=== PATIENT | male | born 1955 | race Caucasian/White ===

== ENCOUNTER 2019-10-29 15:00 | Outpatient (RCR) | payer MEDICARE, SELFPAY ==
[2019-10-07 09:16] VITALS: PULSE 72
--- NOTE | 2019-11-03 10:41 | PCCPR ---
Absent today r/t coronavirus
--- NOTE | 2019-11-12 09:43 | PCCPR ---
Program is temporarily suspended due to COVID outbreak.
--- NOTE | 2019-11-19 12:00 | PCCPR ---
Spoke with Navdeep on how things are going at home and we are currently closed through 12/18/19 and will stay in contact weekly.He is walking outdoors a couple of days 15-20 min and has been walking up and down stairs several times per day. He is not doing strength trng. He is open to our mailing him exercise safety information.
--- NOTE | 2019-11-26 09:48 | PCCPR ---
Talked with Navdeep who states he hasn't been able to do much activity. States he is going to the store today. He says he received the home exercise guidelines in the mail. No other questions. Will follow up with Navdeep next week.
--- NOTE | 2019-12-03 11:08 | PCCPR ---
Called patient to check in. Left voicemail. Will follow weekly.
--- NOTE | 2019-12-10 13:44 | PCCPR ---
Weekly update call-Left message.
--- NOTE | 2019-12-17 13:54 | PCCPR ---
Weekly update call-informed patient of continued closure through the month of December due to the extension of the senior care in place order. No questions at this time.
--- NOTE | 2020-01-01 13:09 | PCCPR ---
Starting Bi-Weekly Calls. Spoke with patient. Patient states he got tested today because he has been having increased SOB. He also states his son in law (who lives with him) got tested because one of his coworkers tested positive. No other questions or concerns at this time.
--- NOTE | 2020-01-15 13:38 | PCCPR ---
Navdeep is due to have a herniated disc in his back repaired in a couple of weeks. Spoke with his she said he may have a delayed restart once the department opens due to the surgery. They still would like us to call and check on him. No other questions or concerns at this time.
--- NOTE | 2020-02-06 13:11 | PCCPR ---
Addendum entered by Beatrice Walton RN 02/06/20 13:14: Navdeep called back, stated that his surgery went well and would like to return to Pulmonary rehab when reopened. Informed him that we would need a release from his surgeon before returning. Original Note: Called today to update on reopening. No answer, left message.
== END 2019-10-29 23:59 | disposition home or self-care (01) ==
LOC: ANHCPREHAB 15:00
PROVIDERS: PCP Physician Assistant; Visit Provider Internal Medicine Critical Care Medicine
DX: J44.9 Chronic obstructive pulmonary disease, unspecified (principal)
CPT/HCPCS: 97150; G0424

== ENCOUNTER 2020-05-06 13:16 | Outpatient (CLI) | payer MEDICARE, SELFPAY ==
--- NOTE | 2020-05-06 16:09 | WPDPFTINT ---
PFT Interpretation PFT Interpretation: DOS: 05/06/2020 REQUESTING: Fanny Carmichael NP REASON FOR TESTING: shortness of breath, other disorders of the lungs PULMONARY FUNCTION TESTS Results are reproducible. Spirometry: FEV1 is 50%, moderately decreased. FVC is 51%, moderately decreased. FEV1% is decreased consistent with airflow obstruction. UND97-40% is 36%, severely decreased. There is no increase in flows after bronchodilator. Lung volumes: TLC 67%, consistent with restriction. RV/TLC is increased consistent with obstruction. Increased airway resistance. Diffusion: DLCO 64%, mildly decreased. Flow volume loop: Flow volume loop is not reproducible. IMPRESSION: Mild restriction, moderate obstruction with air trapping, and mild diffusion impairment. No response to bronchodilator. This is a mixed pattern, and may represent a combination of 2 isolated conditions or a single condition such as sarcoid causing both abnormalities. Clinical correlation is recommended. Michelle Owen MD
--- NOTE | 2020-05-06 16:24 | WPDSIXMINUTE ---
Six Minute Walk Six Minute Walk: DOS: 05/06/2020 REQUESTING: Fanny Carmichael NP REASON FOR TESTING: shortness of breath, other disorders of the lungs SIX MINUTE WALK This test was conducted per ATS standards. The initial saturation was 97% and pulse was 92. He walked for 6 minutes without stopping, completing 1400 feet/ 427 meters. The pulse increased to 130 and saturation was as low as 92%. At the end of the test, final heart rate was 118 and saturation was 96%. IMPRESSION: No supplemental O2 is indicated with exertion. Heart rate was sustained in the 110s after the test suggesting deconditioning.
== END 2020-05-06 13:17 | disposition home or self-care (01) ==
LOC: ANHPFT 13:19
PROVIDERS: PCP Physician Assistant; Visit Provider Nurse Practitioner
DX: J98.4 Other disorders of lung (principal); R94.2 Abnormal results of pulmonary function studies
CPT/HCPCS: 94060; 94726; 94729

== ENCOUNTER 2020-05-18 07:41 | Outpatient (CLI) | payer MEDICARE, SELFPAY ==
--- NOTE | ~2020-05-18 | PE_ITS ---
EXAMINATION: PET skull to mid thigh DATE: 05/18/2020 09:59 INDICATION: Abnormal findings on diagnostic imaging of lung. TECHNIQUE: Blood glucose level was 154 mg/dL. 9.866 mCi of 18-fluorodeoxyglucose (18-FDG) was adminis tered i.v. Low dose computed tomography (CT) images were acquired from the base of the brain to the p roximal thighs for attenuation correction and anatomic localization. Automated exposure control was e mployed. Dose-length product (DLP) was 1219 mGy-cm. Positron emission tomography (PET) images were ac quired in the same distribution. COMPARISON: Chest CT 10/26/2011, abdomen CT 08/05/2015 FINDINGS: Head/neck: There is increased activity in the oral cavity, nasopharynx, oropharynx, muscles of mastic ation, and glottis without CT correlate, likely physiologic. There are no pathologically enlarged lym ph nodes. Chest: There are calcified pleural plaques bilaterally, which may be seen with asbestosis exposure. T here is mild atelectasis bilaterally. No pleural effusion. The heart size is normal. There are antunez ry artery calcifications. No pericardial effusion. There is prominent extrapleural fat. Mediastinal l ipomatosis is noted. There is a moderate-sized sliding hiatal hernia. There are multiple old healed r ight rib fractures. Abdomen/pelvis/proximal thighs: The liver, gallbladder, pancreas, spleen, adrenal glands, and right k idney are normal. There is a 1.5 cm cyst in left kidney. The prostate is moderately enlarged. There a re no dilated loops of bowel. There is a mildly enlarged periportal lymph node without increased acti vity, likely reactive. There is no free intraperitoneal fluid. There are L4 and L5 laminectomies with associated surgical bed and subcutaneous fat stranding and increased activity, consistent with infla mmation. IMPRESSION: 1. No specific evidence of malignancy. Reviewed, dictated and finalized at location A.
[2020-05-18 08:14] LABS: Glucose Point of Care 154 (65-105)
== END 2020-05-18 07:42 | disposition home or self-care (01) ==
PROVIDERS: PCP Physician Assistant; Visit Provider Nurse Practitioner
DX: R91.8 Other nonspecific abnormal finding of lung field (principal)
CPT/HCPCS: 78815; A9552

== ENCOUNTER 2021-05-16 11:28 | Outpatient (CLI) | payer MEDICARE, SELFPAY ==
[2021-05-16 13:01] LABS: Basophils Absolute Auto 0.1 K/mm3 (0.0-0.1); Basophils Percent Auto 0.6 % (0.2-1.2); Eosinophils Absolute Auto 0.2 K/mm3 (0-0.3); Eosinophils Percent Auto 1.4 % (0-4.4); Hematocrit 51.4 % (42.0-52.0); Hemoglobin 16.6 g/dL (14.0-18.0); Immature Granulocyte Absolute 0.07 K/mm3 (0.00-0.031); Immature Granulocyte Percent A 0.6 % (0-0.5); Lymphocytes Absolute Auto 4.94 K/mm3 (0.9-3.2); Lymphocytes Percent Auto 40.5 % (18.3-44.2); Mean Corpuscular HGB Conc 32.3 g/dl (32-36); Mean Corpuscular Hemoglobin 27.8 pg (26-34); Mean Corpuscular Volume 86.1 fl (80-100); Monocytes Absolute Auto 0.6 K/mm3 (0.1-0.6); Monocytes Percent Auto 4.8 % (2.6-8.5); Neutrophils Absolute Auto 6.4 K/mm3 (1.3-6.7); Neutrophils Percent Auto 52.1 % (45.5-73.1); Platelet Count Result 261 k/mm3 (150-375); Red Blood Count 5.97 M/mm3 (4.6-6.20); Red Cell Distribution Width 13.2 % (11.5-14.5); White Blood Count 12.2 K/mm3 (4.5-10.0)
[2021-05-16 13:05] LABS: Blood Urea Nitrogen 17 mg/dL (9-20); Estimated Glomerular Filt Rate > 60
[2021-05-19 10:45] LABS: NIL 0.05 IU/mL; Quantiferon TB Plus, 1T NEGATIVE (NEGATIVE); TB1-NIL 0.04 IU/mL; TB2-NIL 0.03 IU/mL
[2021-05-19 13:20] LABS: Immunoglobulin G, Serum 770 mg/dL (600-1540); Immunoglobulin G1 363 mg/dL (382-929); Immunoglobulin G2 251 mg/dL (241-700); Immunoglobulin G3 48 mg/dL (22-178)
[2021-05-20 11:30] LABS: Alpha-1-Antitrypsin, QN 139 mg/dL (83-199)
== END 2021-05-16 11:29 | disposition home or self-care (01) ==
PROVIDERS: PCP Physician Assistant; Visit Provider Nurse Practitioner
DX: J30.9 Allergic rhinitis, unspecified (principal); R05 Cough; R07.9 Chest pain, unspecified; R06.09 Other forms of dyspnea
CPT/HCPCS: 36415; 82103; 82104; 82565; 82784; 82785; 82787; 84520; 85025; 86003; 86480

== ENCOUNTER 2021-05-17 10:11 | Outpatient (CLI) | payer MEDICARE, SELFPAY ==
--- NOTE | ~2021-05-17 | XR_ITS ---
EXAMINATION: XR chest 2V EXAM DATE: 05/17/2021 10:55 INDICATION: Chest pain and shortness of breath. Asbestos exposure. TECHNIQUE: Frontal and lateral projections of the chest obtained and reviewed. Comparison is made to prior examination from 10/26/2014. FINDINGS: Calcified right pleural plaque along the diaphragm. There are multiple old right rib fract ures. Small scattered bilateral upper lobe reticular nodular opacities more on the right appear not s ignificantly changed, likely chronic postinfectious residua. The lungs are otherwise clear. Heart is upper limits of normal in size. There is no pneumothorax suspected. There are no pleural effusions. T here is no significant interval change. IMPRESSION: Chronic findings as above. Reviewed, dictated and finalized at location A. IMPRESSION: Chronic findings as above.
--- NOTE | ~2021-05-17 | NM_ITS ---
EXAMINATION: NM pulmonary perfusion EXAM DATE: 05/17/2021 10:56 INDICATION: Chest pain, shortness of breath. History hypertension, heart stents, asbestos exposure. TECHNIQUE: A perfusion lung scan was performed. The patient was injected with 5.2 mCi technetium 99m MAA and imaged. Modified PIOPED 2 criteria used for interpretation of perfusion without ventilation study (recent chest x-ray instead for comparison). Correlation is made to chest x-ray obtained same d ay. FINDINGS: There is minimally heterogeneous perfusion without discrete segmental defects. Low probabil ity pulmonary embolism. IMPRESSION: Low probability pulmonary embolism. Reviewed, dictated and finalized at location A.
== END 2021-05-17 10:12 | disposition home or self-care (01) ==
LOC: ANHIMG 10:16
PROVIDERS: PCP Nurse Practitioner; Visit Provider Nurse Practitioner
DX: R07.9 Chest pain, unspecified (principal)
CPT/HCPCS: 71046; 78580; A9540

== ENCOUNTER 2022-02-01 08:05 | Outpatient (CLI) | payer MEDICARE, SELFPAY ==
[2022-02-01 08:10] VITALS: PULSE 100; O2SAT 95
[2022-02-01 08:15] VITALS: PULSE 130; O2SAT 86
[2022-02-01 08:20] VITALS: PULSE 129; O2SAT 88
[2022-02-01 08:25] VITALS: PULSE 128; O2SAT 91
[2022-02-01 08:40] VITALS: PULSE 100; O2SAT 94
--- NOTE | 2022-02-01 08:49 | HOMEO2EVAL ---
Evaluation was performed at [facility] Home Oxygen Evaluation RC: Home Oxygen (O2) Evaluation Start: 02/01/22 08:43 Freq: Status: Active Protocol: RPE Activity Type Activity Date Activity User E-sign Co-sign Detail Recorded Client Recorded Date Recorded By Document 02/01/22 08:10 DJO [email or web address] 02/01/22 08:49 DJO Document 02/01/22 08:15 [email or web address] [email or web address] 02/01/22 08:49 DJO Document 02/01/22 08:20 [email or web address] [email or web address] 02/01/22 08:49 DJO Document 02/01/22 08:25 [email or web address] [email or web address] 02/01/22 08:49 DJO Document 02/01/22 08:40 [email or web address] [email or web address] 02/01/22 08:49 DJO 02/01/22 02/01/22 02/01/22 08:10 08:15 08:20 Home O2 Evaluation Test Phase Resting Exercise Exercise Oxygen Delivery Room Air Room Air Nasal Cannula Oxygen Flow Rate (L/min) 1 Pulse Oximetry (90-100 %) 95 86 L 88 L Pulse Rate (60-100 beats/min) 100 130 H 129 H Ambulation Distance (feet) Ambulation Distance (meters) Treatment Charges O2 Evaluation - Outpatient 02/01/22 02/01/22 08:25 08:40 Home O2 Evaluation Test Phase Exercise Resting Oxygen Delivery Room Air Oxygen Flow Rate (L/min) 2 Pulse Oximetry (90-100 %) 91 94 Pulse Rate (60-100 beats/min) 128 H 100 Ambulation Distance (feet) 1,000 Ambulation Distance (meters) 304.78 Treatment Charges
== END 2022-02-01 08:06 | disposition home or self-care (01) ==
PROVIDERS: PCP Nurse Practitioner; Visit Provider Nurse Practitioner
DX: J44.9 Chronic obstructive pulmonary disease, unspecified (principal)
CPT/HCPCS: 94618

== ENCOUNTER 2022-03-09 20:50 | Observation (INO) | payer MEDICARE, SELFPAY ==
[2022-03-09 20:49] VITALS: BP 133/69; PULSE 69; RESP 13; TEMP 36.8; O2SAT 96
--- NOTE | 2022-03-09 20:52 | ECG_ITS ---
Measurements Intervals [place] Rate: 67 P: 56 DE: 176 QRS: 72 QRSD: 79 T: 72 QT: 365 QTc: 386 Interpretive Statements SINUS RHYTHM BASELINE ARTIFACT- V2-V3 NORMAL ECG Electronically Signed On 03-10-2022 8:41:20 CDT by Janusz Morrison D.O.
[2022-03-09 20:53] VITALS: PULSE 67
--- NOTE | 2022-03-09 21:09 | ED.GENADULT ---
HPI - General Adult General Chief complaint: Syncope Stated complaint: PRESYNCOPE Time Seen by Provider: 03/09/22 20:53 History of Present Illness HPI narrative: 66-year-old male presenting to the emergency department for evaluation of 2 to 3 days of having multiple episodes of near syncope. Patient states over the last few days he has had multiple episodes daily during which he stands up and feels like he is going to have lost consciousness. Patient denies any sensation of dizziness but states he feels like he is going to pass out. Patient states his symptoms do improve once he sits down and rest. Patient denies any associated nausea vomiting or diarrhea. Patient denies any chest pain or shortness of breath. Patient states he does have some mild headache but that this is not unusual for him. Last night patient was walking and felt dizzy and wobbly and did bump into a table. After resting on the floor for 5 minutes patient felt improved. Prior to arrival patient states when he was walking to the car to come here he had worsening symptoms, patient states he did improve while resting in the car. Patient states after getting out of the car the symptoms returned. While resting in the bed patient denies any symptoms. Patient does have a history of hypertension and does have cardiac stents. Patient states his last stent was in 2019. Patient also has a prior history of bladder cancer. Patient also has history of asbestosis and is on 2 L of oxygen by nasal cannula. Related Data Home Medications Medication Instructions Recorded Confirmed aspirin 81 mg tablet,delayed 81 mg PO DAILY 10/07/19 10/07/19 release (Scott Low Dose Aspirin) carvedilol 25 mg tablet 25 mg PO BID 10/07/19 10/07/19 citalopram 20 mg tablet 20 mg PO DAILY 10/07/19 10/07/19 clopidogrel 75 mg tablet 75 mg PO DAILY 10/07/19 10/07/19 levothyroxine 50 mcg tablet 50 mcg PO DAILY 10/07/19 10/07/19 lisinopril 10 1 tablet PO BID 10/07/19 10/07/19 mg-hydrochlorothiazide 12.5 mg tablet Allergies Allergy/AdvReac Type Severity Reaction Status Date / Time metoclopramide Allergy Mild N/V, Verified 06/03/15 10:49 ITHCING, RASH propoxyphene Allergy Mild N/V, Verified 06/03/15 10:49 ITCHING, RASH vancomycin Allergy Mild N/V, Verified 06/03/15 10:49 ITCHING, RASH codeine Allergy Unknown NAUSEA Verified 06/03/15 10:49 Contrast Media Allergy Mild VOMITING, Uncoded 06/03/15 10:49 RASH Review of Systems Review of Systems: CONSTITUTIONAL: Denies fever, chills, or sweats. EYES: Denies visual changes, redness, or discharge. ENT: Denies rhinorrhea, congestion, sore throat, or otalgia. CARDIOVASCULAR: Denies chest pain, palpitations, or edema. RESPIRATORY: Denies cough or dyspnea. GASTROINTESTINAL: Denies abdominal pain, nausea, vomiting, or diarrhea. GENITOURINARY: Denies dysuria or hematuria. SKIN: Denies rash or itching. MUSCULOSKELETAL: Denies back pain, joint pain, or myalgia. NEUROLOGIC: Denies headache, numbness, or weakness. Lightheadedness and near syncope PMFSH Past Medical History Medical History (Updated 03/10/22 @ 00:46 by Jn Samuel DO) Anxiety Coronary artery disease Essential (primary) hypertension Hypothyroidism, unspecified Family History Family History Mother Family history of malignant neoplasm Chronic obstructive pulmonary disease Hypertension Sibling Family history of coronary artery disease Hypertension Father Family history of coronary artery disease Hypertension Social History Social History Smoking status: Never smoker Alcohol intake: never Substance use: never Spiritual care concerns: No Exam Narrative: APPEARANCE: Well appearing, no pain, no distress, well-nourished. HEAD: normocephalic, atraumatic. EYES: PERRLA/EOMI, conjunctivae clear. NOSE:
[2022-03-09 21:59] LABS: Basophils Absolute Auto 0.1 K/mm3 (0.0-0.1); Basophils Percent Auto 0.4 % (0.2-1.2); Eosinophils Absolute Auto 0.2 K/mm3 (0-0.3); Eosinophils Percent Auto 1.6 % (0-4.4); Hematocrit 48.3 % (42.0-52.0); Hemoglobin 15.8 g/dL (14.0-18.0); Immature Granulocyte Absolute 0.14 K/mm3 (0.00-0.031); Lymphocytes Absolute Auto 3.46 K/mm3 (0.9-3.2); Lymphocytes Percent Auto 24.8 % (18.3-44.2); Mean Corpuscular HGB Conc 32.7 g/dl (32-36); Mean Corpuscular Hemoglobin 27.6 pg (26-34); Mean Corpuscular Volume 84.3 fl (80-100); Mean Platelet Volume 8.6 fl (7.4-10.4); Monocytes Absolute Auto 0.6 K/mm3 (0.1-0.6); Monocytes Percent Auto 4.6 % (2.6-8.5); Neutrophils Absolute Auto 9.4 K/mm3 (1.3-6.7); Neutrophils Percent Auto 67.6 % (45.5-73.1); Platelet Count Result 295 k/mm3 (150-375); Red Blood Count 5.73 M/mm3 (4.6-6.20); Red Cell Distribution Width 13.6 % (11.5-14.5)
[2022-03-09 22:08] LABS: Alanine Aminotransferase 37 U/L (6-50); Albumin Level 4.5 g/dL (3.5-5.1); Alkaline Phosphatase 66 U/L (38-126); Anion Gap 8 mmol/L (8-16); Aspartate Amino Transferase 31 U/L (17-59); Bilirubin,Total 0.9 mg/dL (0.2-1.3); Blood Urea Nitrogen 25 mg/dL (9-20); Calcium 10.2 mg/dL (8.4-10.2); Carbon Dioxide 28 mmol/L (22-30); Chloride 98 mmol/L (98-107); Estimated Glomerular Filt Rate 36; Glucose 151 mg/dL (65-110); Potassium 4.1 mmol/L (3.4-5.0); Sodium 134 mmol/L (137-145)
[2022-03-09 22:17] VITALS: BP 109/60; PULSE 78
[2022-03-09 22:19] VITALS: BP 87/66; PULSE 85
[2022-03-09 22:35] LABS: SARS-CoV-2 RNA PCR Negative
[2022-03-09 22:37] VITALS: BP 100/85; PULSE 77; RESP 16; O2SAT 96
[2022-03-09] MEDS: SODIUM CHLORIDE 0.9% IV 1,000 ML 999 ML IV CONT (22:37)
[2022-03-09] MEDS: SODIUM CHLORIDE 0.9% IV 1,000 ML 100 ML IV CONT (23:38)
[2022-03-09 23:41] VITALS: BP 151/88; PULSE 70; RESP 19; O2SAT 94
[2022-03-10] VITALS (17 sets, daily range): BP systolic 117–172; BP diastolic 49–80; PULSE 66–97; RESP 18–20; TEMP 36.3–36.6; O2SAT 95–100; BMI 35.2
--- NOTE | 2022-03-10 00:09 | PM.IMHP ---
H&P: HPI History of Present Illness Date/Time: 03/10/22 00:09 Chief Complaint: dizziness Narrative: Patient is a 66-year-old male past medical history posttraumatic brain injury, BPH, CAD status post coronary stents, essential hypertension, hypothyroidism, GERD who presents the ED complaints of dizziness and near syncope. Patient states whenever he stands up he feels lightheaded and dizzy. this is been going on for last couple weeks. He follows Dr. Deepthi ferreira for his coronary stents. of note he had a positive stress test, subsequent heart catheterization he had diagnostic which was abnormal. Apparently the facility he was in could not safely do stents without cardiology back up, so he was advised to follow up at later date? In the ED: Patient was found to be orthostatic blood pressure going from 151/88 down to 87/66. patient be admitted for orthostatic hypotension Review of Systems Review of Systems: Constitutional: No Fever, No Chills, No Night Sweats, No Fatigue, No Malaise ENT/Mouth: No Hearing Changes, No Ear Pain, No Nasal Congestion, No Sinus Pain, No Hoarseness, No sore throat, No Rhinorrhea, No Swallowing Difficulty Eyes: No Eye Pain, No Redness, No Vision Changes Cardiovascular: No Chest Pain, No Palpitations, No Dyspnea on Exertion, No Orthopnea Respiratory: No Cough, No Sputum, No Wheezing, No Shortness of Breath Gastrointestinal: No Nausea, No Vomiting, No Diarrhea, No Constipation, No Abdominal Pain, No Heartburn, No Hematochezia, No Melena Genitourinary: No Dysuria, No Urinary Frequency, No Hematuria, No Urinary Incontinence, No Urgency Musculoskeletal: No Arthralgias, No Myalgias, No Joint Swelling, No Joint Stiffness, No Back Pain Skin: No Skin Lesions, No Pruritis, No Hair Changes Neuro: No Weakness, No Numbness, No Paresthesias, No Loss of Consciousness, No Syncope, endorses dizziness and lightheadedness Psych: No Anxiety/Panic, No Depression, No Insomnia Heme: No Bruising, No Bleeding Lymph: No Adenopathy Endocrine: No Polyuria, No Polydipsia, No Temperature Intolerance PMF Past Medical History Medical History (Updated 03/10/22 @ 00:46 by Jn Samuel DO) Anxiety Coronary artery disease Essential (primary) hypertension Hypothyroidism, unspecified Family History Family History Mother Family history of malignant neoplasm Chronic obstructive pulmonary disease Hypertension Sibling Family history of coronary artery disease Hypertension Father Family history of coronary artery disease Hypertension Social History Social History Smoking status: Never smoker Alcohol intake: never Comments surgical history: History of coronary stent Meds Home Medications and Allergies Home Medications Medication Instructions Recorded Confirmed Type aspirin 81 mg tablet,delayed 81 mg PO DAILY 10/07/19 10/07/19 History release (Scott Low Dose Aspirin) carvedilol 25 mg tablet 25 mg PO BID 10/07/19 10/07/19 History citalopram 20 mg tablet 20 mg PO DAILY 10/07/19 10/07/19 History clopidogrel 75 mg tablet 75 mg PO DAILY 10/07/19 10/07/19 History levothyroxine 50 mcg tablet 50 mcg PO DAILY 10/07/19 10/07/19 History lisinopril 10 1 tablet PO BID 10/07/19 10/07/19 History mg-hydrochlorothiazide 12.5 mg tablet Allergies Allergy/AdvReac Type Severity Reaction Status Date / Time metoclopramide Allergy Mild N/V, Verified 06/03/15 10:49 ITHCING, RASH propoxyphene Allergy Mild N/V, Verified 06/03/15 10:49 ITCHING, RASH vancomycin Allergy Mild N/V, Verified 06/03/15 10:49 ITCHING, RASH codeine Allergy Unknown NAUSEA Verified 06/03/15 10:49 Contrast Media Allergy Mild VOMITING, Uncoded 06/03/15 10:49 RASH Vital Signs Vital Signs - 24 hr 03/09/22 20:49 03/09/22 20:53 03/09/22 22:17 Temperature 36.8 C Puls
--- NOTE | 2022-03-10 01:03 | ADMGEN ---
This patient, Navdeep Pierce, was admitted to Medical Room 240-. Patient/family oriented to hospital policies and general routines including ID bracelet, bed and alarms, visiting hours, pain management, procedures, bathroom and other care routines, personal items, smoking policy, room service/diet, and visiting hours. Information on how to activate the Rapid Response Team has been discussed. Patient/Family are encouraged to report perceived risks to care and to ask questions if they do not understand what they are told or what they should do.
[2022-03-10] MEDS: SODIUM CHLORIDE 0.9% IV 1,000 ML 100 ML IV CONT ×3 (01:29→17:08)
[2022-03-10] MEDS: LEVOTHYROXINE SODIUM 50 MCG TABLET PO (06:19)
--- NOTE | 2022-03-10 07:07 | PM.IMPN ---
Progress Note: A&P Assessment and Plan (1) Orthostatic hypotension: Code(s): I95.1 - Orthostatic hypotension Status: Acute Assessment and Plan: Patient has significant orthostatics in the ED systolic blood pressure going from 150s to 80s and given 2 L bolus in the ED - Continue NS 100 cc/hour overnight - Repeat ortho vitals improved. - slowly resume antihypertensives, patient? may need to an average higher blood pressure to control for his orthostatics as he is becoming significantly symptomatic - Resume Coreg at lower dose. (2) SHASHANK (acute kidney injury): Code(s): N17.9 - Acute kidney failure, unspecified Status: Acute Assessment and Plan: Creatinine elevated at 1.90, baseline at 1.0. Likely prerenal from hypotension. - Continue IVF as above. - Repeat BMP in am. - mild leukocytosis likely secondary dehydration as well, WBC 27798. No fever, no? signs of infection, holding off on antibiotics (3) Hypothyroidism, unspecified: Code(s): E03.9 - Hypothyroidism, unspecified Status: Chronic Assessment and Plan: - Continue levothyroxine at home dose. (4) Essential (primary) hypertension: Code(s): I10 - Essential (primary) hypertension Status: Chronic Assessment and Plan: - Resume coreg at lower dose with hold parameters. - Hold lisinopril and HCTZ due to SHASHANK. (5) Anxiety: Code(s): F41.9 - Anxiety disorder, unspecified Status: Chronic Assessment and Plan: - Continue citalopram (6) CAD (coronary artery disease): Code(s): I25.10 - Atherosclerotic heart disease of [place] coronary artery without angina pectoris Status: Chronic Assessment and Plan: - Continue aspirin and plavix. Plan CODE STATUS: FULL CODE Disposition: Home in 1-2 days Time Spent With Patient Time with patient: 15 - 25 minutes Subjective Date/time seen: 03/10/22 07:07 Patient is a 66 yo male with medical history of hypertension, CAD with cardiac stents, asbestosis on 2L O2, hypothyroidism, and BPH. He presented to the ED for evaluation of near syncope. He was found to have orthostatic hypotension and was referred for further monitoring. Patient found sitting up in bed. He reports his lightheadedness is improving. Repeat orthostatic vitals were negative. No [place], vision changes, chest pain, SOB worsened from baseline, abd pain, dysuria, N/V/D or stool changes. He reports not drinking much water throughout the day. Review of Systems Review of Systems: All systems reviewed & are unremarkable except as noted in HPI and below Exam Narrative: General: No acute distress.?Well-developed adult male sitting up in bed. O2 2L NC. Mental Status/Psych: Awake, alert and oriented to person and place with clear speech. Neutral mood and affect. Pleasant and cooperative. Skin: Skin warm, dry and intact without rashes or lesions. No open wounds. Fair turgor.? HEENT: Normocephalic. Conjunctivae are clear and non-icteric. Pupils equal and round. Grossly normal hearing. Oral mucosa pink and moist. Neck: Supple. No JVD. Heart: S1 and S2 regular rate and rhythm. No murmurs, gallops, or rubs auscultated. Chest: Respirations even and unlabored. Lung sounds are clear to auscultation and diminished in bibasilar lobes. No wheezes, rhonchi, or rales. Abdomen: Soft, round and nontender to palpation.? Bowel sounds present in all 4 quadrants. Extremities:? Grossly normal ROM all extremities. No edema. Radial and dorsalis pedis pulses +2 bilaterally. Neurological: No focal deficits. CN 2-12 grossly intact. Objective Data Vital Signs Vital Signs: Vital Signs - 24 hr 03/09/22 20:49 03/09/22 20:53 03/09/22 22:17 Temperature 98.2 F Pulse Rate 69 67 78 Respiratory Rate 13 Blood Pressure 133/69 109/60 Pulse Oximetry 96 Oxygen Delivery Room Air Oxygen Flow Rate 03/09/22 22:19 03/09/22 22:37 03/09/22 23:41 Temperature Pulse
[2022-03-10] MEDS: allopurinoL 100 MG TABLET PO (08:20)
[2022-03-10] MEDS: ASPIRIN 81 MG ENTERIC TABLET PO (08:20)
[2022-03-10] MEDS: CLOPIDOGREL BISULFATE 75 MG TABLET PO (08:20)
[2022-03-10] MEDS: ENOXAPARIN 40 MG/0.4 ML SYRINGE SUB-Q (08:20)
[2022-03-10] MEDS: ROSUVASTATIN 10 MG TABLET 40 MG PO (08:20)
[2022-03-10] MEDS: VENLAFAXINE HCL XR 75 MG CAP.ER.24H 150 MG PO (08:20)
[2022-03-10] MEDS: CITALOPRAM HYDROBROMIDE 20 MG TABLET PO (08:29)
[2022-03-10] MEDS: carvediloL 6.25 MG TABLET PO (20:53)
[2022-03-11] VITALS (7 sets, daily range): BP systolic 126–156; BP diastolic 58–85; PULSE 65–71; RESP 16–20; TEMP 36.8; O2SAT 96–99
[2022-03-11 05:29] LABS: Hemoglobin 13.3 g/dL (14.0-18.0); Mean Corpuscular HGB Conc 32.4 g/dl (32-36); Mean Corpuscular Hemoglobin 27.6 pg (26-34); Mean Corpuscular Volume 85.1 fl (80-100); Mean Platelet Volume 8.9 fl (7.4-10.4); Platelet Count Result 244 k/mm3 (150-375); Red Blood Count 4.82 M/mm3 (4.6-6.20); Red Cell Distribution Width 13.5 % (11.5-14.5); White Blood Count 8.9 K/mm3 (4.5-10.0)
[2022-03-11 05:40] LABS: Anion Gap 4 mmol/L (8-16); Blood Urea Nitrogen 24 mg/dL (9-20); Calcium 8.7 mg/dL (8.4-10.2); Carbon Dioxide 31 mmol/L (22-30); Chloride 101 mmol/L (98-107); Estimated CRCL calculation 61 ml/min; Estimated Glomerular Filt Rate 51; Glucose 115 mg/dL (65-110); Magnesium 1.9 mg/dL (1.6-2.3); Potassium 4.6 mmol/L (3.4-5.0); Sodium 136 mmol/L (137-145)
[2022-03-11] MEDS: LEVOTHYROXINE SODIUM 50 MCG TABLET PO (05:42)
[2022-03-11] MEDS: SODIUM CHLORIDE 0.9% IV 1,000 ML 100 ML IV CONT (05:42)
[2022-03-11] MEDS: carvediloL 6.25 MG TABLET PO (08:46)
[2022-03-11] MEDS: CITALOPRAM HYDROBROMIDE 20 MG TABLET PO (08:46)
[2022-03-11] MEDS: ROSUVASTATIN 10 MG TABLET 40 MG PO (08:46)
[2022-03-11] MEDS: CLOPIDOGREL BISULFATE 75 MG TABLET PO (08:46)
[2022-03-11] MEDS: allopurinoL 100 MG TABLET PO (08:46)
[2022-03-11] MEDS: ENOXAPARIN 40 MG/0.4 ML SYRINGE SUB-Q (08:46)
[2022-03-11] MEDS: ASPIRIN 81 MG ENTERIC TABLET PO (08:46)
[2022-03-11] MEDS: VENLAFAXINE HCL XR 75 MG CAP.ER.24H 150 MG PO (08:47)
--- NOTE | 2022-03-11 10:10 | PM.DS ---
DS: Admitting Diagnosis Discharge Date 03/11/2022 1011 Admitting Diagnosis Syncope Orthostatic hypotension SHASHANK DS: Discharge Diagnosis Discharge Diagnosis (1) Orthostatic hypotension: Code(s): I95.1 - Orthostatic hypotension Status: Acute Assessment and Plan: Patient had significant orthostatics in the ED systolic blood pressure going from 150s to 80s and given 2 L bolus in the ED - He was treated with NS 100 cc/hour 03/09 to 03/11 - Repeat ortho vitals improved and dizziness resolved. - His coreg was resumed at low dose and increased to 12.5 mg BID. lisinopril/HCTZ was held for SHASHANK. Amlodipine was resumed on discharge. He was counseled on changing positions slowly and waiting to ambulate, ger if dizzy. He was counseled to monitor BP at home, to record and take to follow up appointment. He was given parameters to follow for antihypertensive medications. (2) SHASHANK (acute kidney injury): Code(s): N17.9 - Acute kidney failure, unspecified Status: Acute Assessment and Plan: Creatinine elevated at 1.90, baseline at 1.0. Likely prerenal from hypotension. - He was treated with IVF as above. - 03/11 renal function was improved, BUN 24, creatinine 1.4, GFR 51. - dizziness resolved. lisinopril/hctz held for 2 days at discharge with repeat BMP in 1 week. - oral water intake was discussed and encouraged. - mild leukocytosis was noted but thought secondary dehydration. WBC 91720. No fever, dysuria, cough, diarrhea, or other signs of infection were noted. Antibiotics were not given. (3) Hypothyroidism, unspecified: Code(s): E03.9 - Hypothyroidism, unspecified Status: Chronic Assessment and Plan: -Levothyroxine was continued at home dose. TSH was normal at 1.48. (4) Essential (primary) hypertension: Code(s): I10 - Essential (primary) hypertension Status: Chronic Assessment and Plan: - Resume coreg at lower dose with hold parameters. - Hold lisinopril and HCTZ due to SHASHANK. - BP 156/85, HR 67. Patient may need higher BP to prevent orthostasis and dizziness. - outpatient monitoring and PCP follow up with ordered. (5) Anxiety: Code(s): F41.9 - Anxiety disorder, unspecified Status: Chronic Assessment and Plan: - Continued on citalopram. Stable. (6) CAD (coronary artery disease): Code(s): I25.10 - Atherosclerotic heart disease of ione coronary artery without angina pectoris Status: Chronic Assessment and Plan: - Continued on aspirin and plavix. Beta-demarco was resumed at 1/2 dose, with instructions for increasing to previous level if BP remains elevated. DS: Summary Hospital Course Reason for hospitalization: Dizziness Hospital Course: Navdeep Pierce is a 66-year-old male with past medical history posttraumatic brain injury, BPH, CAD s/p coronary stents, essential hypertension, hypothyroidism, and GERD. He presented to the ED with complaints of dizziness and?near syncope.? Patient states whenever he stands up he feels lightheaded and dizzy, which has been going on for the last couple weeks.? He follows Dr. Lacey, Cardiology for his coronary stents. Of note he had a positive stress test, subsequent heart catheterization he had diagnostic which was abnormal. He reported that the facility could not safely do stents without cardiology back up, so he was advised to follow up at later date. In the ED, patient was found to be orthostatic with blood pressure going from 151/88 down to 87/66.? Renal function was elevated suggesting dehydration and hypovolemia as the cause of his dizziness. He was referred for observation and placed on the medical floor. He was treated with IV hydration and antihypertensives were adjusted. His dizziness resolved and orthostatic BP improved as described above. He was discharged home in stable condition with instructions to monitor and record BP at home. He was given instructi
== END 2022-03-11 11:00 | disposition home or self-care (01) ==
LOC: ANHED 21:21 → ANH2MED 03-10 00:36
PROVIDERS: Emergency Medicine; Admitting Provider Student in an Organized Health Care Education/Training Program; Emergency Provider Emergency Medicine; PCP Physician Assistant; Visit Provider Nurse Practitioner Family
DX: I95.1 Orthostatic hypotension (principal); N17.9 Acute kidney failure, unspecified; D72.829 Elevated white blood cell count, unspecified; E03.9 Hypothyroidism, unspecified; I10 Essential (primary) hypertension; F41.9 Anxiety disorder, unspecified; I25.10 Atherosclerotic heart disease of native coronary artery without angina pectoris; Z95.5 Presence of coronary angioplasty implant and graft; K21.9 Gastro-esophageal reflux disease without esophagitis; Z87.820 Personal history of traumatic brain injury; N40.0 Benign prostatic hyperplasia without lower urinary tract symptoms; Z20.822 Contact with and (suspected) exposure to COVID-19; Z82.49 Family history of ischemic heart disease and other diseases of the circulatory system; Z79.82 Long term (current) use of aspirin; Z79.02 Long term (current) use of antithrombotics/antiplatelets; Z79.899 Other long term (current) drug therapy
CPT/HCPCS: 36415; 80048; 80053; 83735; 84443; 85025; 85027; 93005; 96360; 96361; 96372; 99285; A9270; C9803; G0378; J1650; J7030; U0003; U0005

== ENCOUNTER → 2022-07-11 08:05 | Outpatient (CLI) | payer MEDICARE, SELFPAY ==
--- NOTE | ~2022-07-11 | CT_ITS ---
EXAMINATION:CT diagnostic chest wo con DATE: 07/11/2022 08:21 INDICATION: Pleural plaque with presence of asbestos. TECHNIQUE: Computed tomography (CT) of the chest was performed without intravenous contrast. Automate d exposure control and iterative reconstruction technique were employed. The dose-length product (DLP ) was 247.24 mGy-cm. COMPARISON: PET CT 05/18/2020 FINDINGS: There are calcified bilateral pleural plaques, which may be seen with asbestosis exposure. There is mild atelectasis bilaterally. No pleural effusion. The heart size is normal. There are coron daniel artery calcifications. No pericardial effusion. There is a small sliding hiatal hernia. There are old healed right rib fractures. There are bridging endplate osteophytes at multiple levels in the sp ine, consistent with diffuse idiopathic skeletal hyperostosis (DISH). IMPRESSION: 1. No acute cardiopulmonary disease. Reviewed, dictated and finalized at location A. LE BUILDER
== END ==
PROVIDERS: PCP Physician Assistant; Visit Provider Nurse Practitioner
DX: J92.0 Pleural plaque with presence of asbestos (principal)
CPT/HCPCS: 71250

== ENCOUNTER → 2022-11-20 13:45 | Outpatient (CLI) | payer MEDICARE, SELFPAY ==
--- NOTE | ~2022-11-20 | CT_ITS ---
EXAMINATION:CT diagnostic chest wo con DATE: 11/20/2022 14:01 INDICATION: Other chest pain. TECHNIQUE: Computed tomography (CT) of the chest was performed without intravenous contrast. Automate d exposure control and iterative reconstruction technique were employed. The dose-length product (DLP ) was 623.79 mGy-cm. COMPARISON: Chest CT 07/11/2022 FINDINGS: There are calcified pleural plaques bilaterally, which may be seen with asbestosis exposure . There is mild atelectasis in lingula. No bronchiectasis or honeycombing. No pleural effusion. The h eart size is normal. There are coronary artery calcifications. No pericardial effusion. There is a sm all sliding hiatal hernia. There are old healed right rib fractures. There is mild thoracic spondylos is. There are bridging endplate osteophytes at multiple levels in the spine, consistent with diffuse idiopathic skeletal hyperostosis (DISH). IMPRESSION: 1. Small sliding hiatal hernia. Reviewed, dictated and finalized at location A.
== END ==
PROVIDERS: PCP Nurse Practitioner; Visit Provider Nurse Practitioner
DX: R07.89 Other chest pain (principal); K44.9 Diaphragmatic hernia without obstruction or gangrene
CPT/HCPCS: 71250

== ENCOUNTER 2024-09-28 10:08 | Emergency (ER) | payer MEDICARE, SELFPAY ==
--- NOTE | 2024-09-28 10:09 | ED_ITS ---
HPI - Skin/Abscess/Foreign Bdy General Chief complaint: Dental/Oral Stated complaint: upper lip swollen Time Seen by Provider: 09/28/24 10:09 Source: patient Mode of arrival: ambulatory Limitations: no limitations History of Present Illness HPI narrative: Navdeep is a 69-year-old male patient presenting to the clinic today with complaints upper lip swelling x3 days. He reports he is not currently taking lisinopril as far as he is aware. He reports symptoms started 3 days ago he has taken some Benadryl and this has helped. He reports some discomfort to the upper lip due to the swelling. No obvious sign injury or infection at this time. He denies any fevers, chills, body aches. He is also requesting influenza testing as his grandkids are positive. Related Data Home Medications ?Medication ?Instructions ?Recorded ?Confirmed ?Last Taken ?Type aspirin 81 mg tablet,delayed 81 mg PO DAILY 10/07/19 03/10/22 Unknown History release (Scott Low Dose Aspirin) citalopram 20 mg tablet 20 mg PO DAILY 10/07/19 03/10/22 Unknown History clopidogrel 75 mg tablet 75 mg PO DAILY 10/07/19 03/10/22 Unknown History levothyroxine 50 mcg tablet 50 mcg PO DAILY 10/07/19 03/10/22 Unknown History lisinopril 10 1 tablet PO BID 10/07/19 03/10/22 Unknown History mg-hydrochlorothiazide 12.5 mg tablet allopurinol 100 mg tablet 100 mg PO DAILY 03/10/22 03/10/22 Unknown History amlodipine 5 mg tablet 5 mg PO DAILY 03/10/22 03/10/22 Unknown History hydroxyzine pamoate 25 mg capsule 25 mg PO HS PRN Sleep 03/10/22 03/10/22 Unkn own History indomethacin 50 mg capsule 50 mg PO TID PRN Pain 03/10/22 03/10/22 Unknown History rosuvastatin 40 mg tablet 40 mg PO DAILY 03/10/22 03/10/22 Unknown History venlafaxine 150 mg 150 mg PO DAILY 03/10/22 03/10/22 Unknown History capsule,extended release 24 hr metformin 500 mg tablet mg 09/28/24 Unknown History nystatin 100,000 unit/gram topical topical 09/28/24 Unknown History powder (Nystop) tamsulosin 0.4 mg capsule mg PO 09/28/24 Unknown History Allergies Allergy/AdvReac Type Severity Reaction Status Date / Time metoclopramide Allergy Mild N/V, Verified 09/28/24 10:20 ITHCING, RASH propoxyphene Allergy Mild N/V, Verified 09/28/24 10:20 ITCHING, RASH vancomycin Allergy Mild N/V, Verified 09/28/24 10:20 ITCHING, RASH codeine Allergy Unknown NAUSEA Verified 09/28/24 10:20 Contrast Media Allergy Mild VOMITING, Uncoded 06/03/15 10:49 RASH Review of Systems Review of Systems: Pertinent positives per HPI. Patient denies any fever, chills, rash, headache, visual changes, dizziness, cough, shortness of breath, chest pain, palpitations, nausea, vomiting, diarrhea, constipation, abdominal pain, or any urinary issues. [facility] Past Medical History Medical History Coronary artery disease Hypothyroidism, unspecified Essential (primary) hypertension Anxiety Family History Family History Mother Family history of malignant neoplasm Chronic obstructive pulmonary disease Hypertension Sibling Family history of coronary artery disease Hypertension Father Family history of coronary artery disease Hypertension Social History Social History Smoking status: Never smoker Alcohol intake: never Substance use: never Spiritual care concerns: No Comments At the time of my signature, I reviewed and agree with the nursing past medical, surgical, social, and family history. There is no relevant family history pertinent to the patient complaint. Exam Narrative: General: Well-developed, well nourished, in no apparent distress Head: Normocephalic, atraumatic Eyes: Pupils equally round and reactive to light bilaterally, EOM intact, sclera and conjunctive clear, no discharge, lids normal Ears: TMs intact and clear, ear canals clear, no drainage, grossly hearing normal. Nose: Nares patent, no discharge, no inflammation, no sinus tenderness. Mouth: Oral pharynx without lesions or masses, implanted dentures, MMM. Upper lip swelling-no redness or erythema, tenderness to palpation without induration Neck: Supple, trachea midline, no enlargement of anterior or posterior cervical nodes, no thyroid masses or goiter palpable. Cardio: Regular rate and rhythm, s1 and s2 normal, no murmur appreciated. Resp: Clear to auscultation bilaterally, no rhonchi, rales, wheezing or rubs Course Course Emergency Course: Portions of this record may have been created with voice recognition software. Level of Care: Express Care Visit Vital Signs Vital signs: Vital Signs Temperature 36.5 C 09/28/24 10:22 Pulse Rate 81 09/28/24 10:22 Respiratory Rate 16 09/28/24 10:22 Blood Pressure 171/87 H 09/28/24 10:22 Pulse Oximetry 99 09/28/24 10:22 Oxygen Delivery Room Air 09/28/24 10:22 Temperature 36.5 C 09/28/24 10:22 Pulse Rate 81 09/28/24 10:22 Respiratory Rate 16 09/28/24 10:22 Blood Pressure 171/87 H 09/28/24 10:22 Pulse Oximetry 99 09/28/24 10:22 Oxygen Delivery Room Air 09/28/24 10:22 Vital signs reviewed MDM - Skin/Abscess/Foreign Bdy MDM Narrative Medical decision making narrative: At the time of visit patient is resting comfortably on the exam table. Patient appears to be nontoxic. Labs: Influenza test was negative Plan: I suspect patient likely has angioedema of the left upper lip but cannot rule out infection implanted dentures in the top gum. Will place patient on 10 day course of taper steroid as well as Augmentin to cover for secondary infection. Patient hold any lisinopril however he does not feel as though he is taking any that at this time. Follow-up with his doctor next week. Strict return precautions given in regards to going to the emergency room for any worsening of angioedema. Supportive measures were discussed with the patient and they voiced understanding discharge instructions and agrees to treatment plan. Return precautions reviewed Differential Diagnosis Differential diagnosis: Likely abscess of skin or subcutaneous tissue, urticaria, allergic reaction to drug and other (Angioedema) Discharge Plan Discharge Clinical Impression: Swelling of upper lip Patient Disposition: Home, Self-Care Condition: Stable Instructions: Antibiotic Form, Angioedema (ED) Additional Instructions: Influenza testing was negative in the clinic today Take prednisone and Augmentin as directed Hold taking lisinopril May apply ice compress to the area to help alleviate swelling-20 minutes on/20 minutes off Take Tylenol/Motrin as needed for pain May take Benadryl 25-50mg every 6 hours as needed for itching/swelling. Follow up with your PCP in 3-5 days if symptoms persist or sooner if they worsen Go to the Emergency Room if symptoms worsen- fever, increase in swelling, shortness of breath, difficulty breathing, tongue swelling, drooling, or chest pain Patient Language: Somali Prescriptions: New prednisone 10 mg tablet 10 mg PO DAILY Qty: 30 0RF Rx Instructions: 60mg po daily on day 1, 40mg po daily on days 2-4, 30mg po daily on days 5-6, 20mg po daily on days 7-8, 10mg po daily on days 9-10 amoxicillin-pot clavulanate 875-125 mg tablet 1 tablet PO Q12H 10 Days Qty: 20 0RF No Action metformin 500 mg tablet tamsulosin 0.4 mg capsule PO nystatin [Nystop] 100,000 unit/gram powder TOPICAL clopidogrel 75 mg Tablet 75 mg PO DAILY aspirin [Scott Low Dose Aspirin] 81 mg Tablet,Delayed Release (Dr/Ec) 81 mg PO DAILY citalopram 20 mg Tablet 20 mg PO DAILY levothyroxine 50 mcg Tablet 50 mcg PO DAILY lisinopril-hydrochlorothiazide 10-12.5 mg Tablet 1 tablet PO BID venlafaxine 150 mg capsule,extended release 24hr 150 mg PO DAILY amlodipine 5 mg Tablet 5 mg PO DAILY allopurinol 100 mg Tablet 100 mg PO DAILY indomethacin 50 mg Capsule 50 mg PO TID PRN (Reason: Pain) Rx Instructions: administer with food or milk hydroxyzine pamoate 25 mg capsule 25 mg PO HS PRN (Reason: Sleep) Rx Instructions: pt takes 1-2 per night. increases dose to 2 if more restless rosuvastatin 40 mg Tablet 40 mg PO DAILY carvedilol 25 mg Tablet 12.5 mg PO BID Qty: 14 0RF Rx Instructions: Follow directions on discharge instructions for dose adjustment. Follow-up/Referrals: Ramiro,NOE Cintron [Primary Care Provider] - Time of Disposition: 10:44 Quality NIHSS Nursing Documentation ED NIHSS nursing documentation: reviewed/agree
[2024-09-28 10:22] VITALS: BP 171/87; PULSE 81; RESP 16; TEMP 36.5; O2SAT 99
[2024-09-28 10:46] LABS: EDINFLUASCREEN Negative (Negative); EDINFLUBSCREEN Negative (Negative)
[2024-09-28 11:03] LABS: EDINFLUASCREEN Negative (Negative); EDINFLUBSCREEN Negative (Negative)
== END 2024-09-28 10:45 | disposition home or self-care (01) ==
PROVIDERS: Emergency Provider Nurse Practitioner Family; PCP Physician Assistant
DX: R22.0 Localized swelling, mass and lump, head (principal); I25.10 Atherosclerotic heart disease of native coronary artery without angina pectoris; E03.9 Hypothyroidism, unspecified; I10 Essential (primary) hypertension; F41.9 Anxiety disorder, unspecified; Z79.82 Long term (current) use of aspirin
CPT/HCPCS: 87804; 99213; G0463

== ENCOUNTER 2024-10-29 08:33 | Outpatient (CLI) | payer MEDICARE, SELFPAY ==
--- NOTE | ~2024-10-29 | CT_ITS ---
EXAMINATION: CT abdomen pelvis wo/w con DATE: 10/29/2024 09:39 INDICATION: Malignant neoplasm of trigone of urinary bladder. TECHNIQUE: Computed tomography (CT) of the abdomen and pelvis was performed without and with intraven ous contrast using a total of 130 mL Omnipaque-350 intravenous contrast with a double-bolus technique for simultaneous opacification of the renal parenchyma and renal collecting system. Automated exposu re control and iterative reconstruction technique were employed. The dose-length product was 3097.65 mGy-cm. COMPARISON: PET/CT 05/18/2020 FINDINGS: There are calcified pleural plaques bilaterally, which may be seen with asbestos exposure. There are peripheral reticular opacities in the lower lobes, consistent with mild asbestosis. No pleural effusi on. The heart size is normal. There are coronary artery calcifications. No pericardial effusion. Ther e is a small sliding hiatal hernia. The liver, gallbladder, spleen, pancreas, adrenal glands, and rig ht kidney are normal. There is a 19 mm cyst in left kidney. The ureters are normal. The bladder is no t well distended. There is wall thickening of posterior bladder. The prostate is moderately enlarged. There are no dilated loops of bowel. The appendix is normal. There is mild bilateral external iliac lymphadenopathy, stable from 05/18/2020, likely benign. There are old healed right rib fractures. Ther e is severe lumbar spondylosis. There is no free intraperitoneal fluid. IMPRESSION: 1. Wall thickening of the posterior bladder, which is indeterminate for neoplasm. 2. Mild bilateral external iliac lymphadenopathy, stable from 05/18/2020, likely benign. Reviewed, dictated and finalized at location B. IMPRESSION: 1. Wall thickening of the posterior bladder, which is indeterminate for neoplas m. 2. Mild bilateral external iliac lymphadenopathy, stable from 05/18/2020, likely benign.
--- OUTSIDE RECORDS SUMMARY | 2024-10-29 08:57 | XMS_ITS ---
Author Organization [facility] Address [address] [place] [address] Care Team Providers Care Volcanology Teacher Name Role Phone Saida Rubio Primary Care Pr ovider Shawn Roth MD Unavailable Active Problems Problem Noted Date Diagnosed Date Diastasis recti 07/31/2024 Assessment & Plan (07/31/2024 9:15 AM VICE PRESIDENT OF TALENT ACQUISITION): We have discussed the upper midline bulge that he was noticing is not a true hernia but a diastasis. We have discussed that this is just a weakening of the muscle. There was no risk for bowel or fat getting stuck within it as there was no true fascial defect. We have discussed core strengthening exercises, compression and weight loss can be used to help with this. Hiatal hernia 07/31/2024 Assessment & Plan (07/31/2024 9:16 AM VICE PRESIDENT OF TALENT ACQUISITION): I have discussed given the very small nature of the hiatal hernia it would be unlikely that this is contributing to his worsening lung issues. However this scan was back in so we will 1st start by repeating the CT and esophagram to see if there is any significant increase with regards to the hiatal hernia. Once the CT scan returns we will call him to discuss further course of action going forward. We have discussed that we could help address his reflux issues by correcting the small sliding-type hiatal hernia but again given his pulmonary issues it may not be worth it if medication is controlling it enough especially if it is not going to have any bearing on his shortness of breath. Chronic respiratory failure with hypoxia, on home O2 therapy 06/18/2024 Assessment & Plan (06/18/2024 3:32 PM CDT): Continue noninvasive ventilator with all sleep and during the day as needed Continue supplemental oxygen for saturations 90% or greater Pleural plaque due to asbestos exposure 06/18/20 Assessment & Plan (06/18/2024 3:33 PM CDT): These have been stable on imaging and are likely contributing to some part of his restriction Leukocytosis 04/08/2021 Coronary artery disease invo lving [place] coronary artery of [place] heart without angina pectoris 01/13/2020 Asbestos exposure 12/11/2018 Chest pain 12/10/2018 Overview (12/11/2018): Added automatically from request for surgery [id number] Obesity (BMI 30-39.9) 07/15/2018 Pulsatile tinnitus 01/14/2018 Malignant neoplasm of posterior wall of bladder 08/30/2017 Malignant neoplasm of posterior wall of urinary bladder 08/30/2017 Borderline high serum cholesterol 06/29/2017 Chronic thyroiditis 06/29/2017 Neoplasm of bladder 06/29/2017 COPD (chronic obstructive pulmonary disease) 02/2017 Centrilobular emphysema 11/27/2016 Presence of stent in coronary artery 06/01/2016 Overview (11/23/2016): Stented coronary artery Restrictive lung disease 06/01/2016 Overview (11/23/2016): Restrictive lung disease Assessment & Plan (06/18/2024 3:33 PM CDT): He will remain on noninvasive ventilator with all sleep This is likely multifactorial with obesity, hiatal hernia, multiple rib fractures Continue supplemental oxygen as ordered Essential hypertension 05/29/2016 Overview (04/01/2019): Essential hypertension Mixed hyperlipidemia 05/29/2016 Overview (04/01/2019): Mixed hyperlipidemia Alpha 1-antitrypsin PiMS phenotype 05/29/2016 Assessment & Plan (06/18/2024 3:34 PM CDT): His last level was 139 Plans to repeat levels yearly with changes in condition Asbestosis 05/29/2016 Contact with and (suspected) exposure to asbesto s 05/29/2016 History of rib fracture 05/29/2016 Hypothyroidism 05/29/2016 Personal history of malignant neoplasm of bladde r 05/29/2016 Shortness of breath 05/29/2016 Toxic effect of other specif ied substances, undetermined, initial encounter 05/29/2016 Current Treatment and Therapy Plans No current plan information found. Past Treatment and Therapy Plans No past plan information found. Lifetime Dose Tracking * Chemical Lifetime Dose Automatic Entry Manual Entr y Fluoro Time 1.6 minutes 1.6 minutes 0 minutes Air kerma at the reference point (Ka,r) 1,776.3 mGy 5 4.3 mGy 1,722 mGy DLP 5,300 mGycm 5,300 mGycm 0 mGycm Resolved Problems Problem Noted Date Diagnosed Date Resolved Date Preoperative cardiovascular examination 01/13/2020 10/25/2021 History of coronary artery stent placement 01/13/2020 01/13/2020 Unstable angina 12/11/2018 01/13/2020 Presence of stent in artery 06/29/2017 01/13/2020 Adiposity 06/01/2016 07/15/2018 Overview (11/23/2016): Obesity (BMI 30.0-34.9) Coronary artery disease due to lipid rich plaque 06/01/2016 01/13/2020 Overview (11/23/2016): Coronary artery disease of [place] artery of [place] heart with stable angina pectoris
--- OUTSIDE RECORDS SUMMARY | 2024-10-29 08:57 | XMS_ITS | Referral Summary ---
Author Organization [facility] Address [address] [place] [address] Care Team Providers Care Exchange Administrator Name Role Phone Saida Rubio Primary Care Pr ovider Shawn Roth MD Unavailable Encounters Date Type Department Care Team Description 09/12/2024 Telephone [facility] [address] [place] [address] [address] [place] [address] Hardeep Long MD 09/04/2024 9:00 AM [facility]GY [facility] [facility] Lab [address] [address] 09/04/2024 7:10 AM ENERGY [employer]ER - 09/04/2024 11:59 PM ENERGY [employer] Hospital Encounter [address] [address] Abdominal pain Discharge Disposition: Discharge to home or self care 09/04/2024 7:00 AM ENERGY [employer]ER - 09/04/2024 11:59 PM ENERGY [employer] Hospital Encounter [address] [address] Rad, [facility] Fluoro Gastroesophageal reflux disease without esophagitis Discharge Disposition: Discharge to home or self care 09/03/[address] [address] Carito Cody 07/31/[address] [place] [address] Rochelle Hill RN 07/31/2024 Orders Only [address] [place] [address] Hardeep Long MD Abdominal pain (Primary Dx) 07/31/2024 8:30 AM ENER[employer] Office Visit [facility] [address] [place] [address] [address] [place] [address] aHrdeep Long MD Gastroesophageal reflux disease without esophagitis (Primary Dx); Diastasis recti; Hiatal hernia from Last 3 Months Allergies Active Allergy Reactions Criticality Noted Date Comments Codeine Unknown High 07/02/2023 Iodinated Contrast Media Hives,Itching,Rash High Metoclopramide Unknown High 07/02/2023 Propoxyphene-Acetaminophen Unknown High 3 Unclassified Drug Unknown 04/01/2019 Vancomycin Unknown High 07/02/2023 Medications levothyroxine (SYNTHROID, LEVOTHROID) 50 mcg tablet take 1 tablet by oral route every day 0 0 06/01/20 16 Active allopurinol (ZYLOPRIM) 100 mg tablet Take 1 tablet (100 mg total) by mouth 2 (two) times a day 04/01/20 18 Active sodium chloride 0.9 % solution for nebulization with albuterol 5 mg/mL solution for nebulization 0.6 mg/mL every 6 (six) hours Active lisinopril-hydroCH LOROthiazide (PRINZIDE,ZESTORET IC) 10-12.5 mg per tablet 03/31/20 19 Active albuterol (PROVENTIL,VENTOLI N) 2.5 mg /3 mL (0.083 %) nebulizer solution Inhale 3 mL (2.5 mg total) Active nitroglycerin (NITROSTAT) 0.[address] 1 tablet (0.4 mg total) under the tongue every 5 (five) minutes as needed for chest pain May repeat dose q 5 min, up to 3 doses total 25 tablet 11 12/12/19 20 Active Additional Information Patient not taking.Reported on 06/18/2024 carvediloL (COREG) 25 mg tablet Take 1 tablet (25 mg total) by mouth 2 (two) times a day 01/13/20 20 Active rosuvastatin (CRESTOR) 40 mg tabletIndications: Coronary artery disease of [place] artery of [place] heart with stable angina pectoris,Mixed hyperlipidemia Take 1 tablet (40 mg total) by mouth daily 90 tablet 3 01/13/20 20 Active indomethacin (INDOCIN) 50 mg capsule Take 1 capsule (50 mg total) by mouth 3 (three) times a day with meals Active venlafaxine XR (EFFEXOR-XR) 150 mg 24 hr capsule Take 1 capsule (150 mg total) by mouth daily Active cyanocobalamin (Vitamin B-12) 1,000 mcg/mL injection Active aspirin 81 mg chewable tablet Take 1 tablet (81 mg total) by mouth daily 100 tablet 10/26/19 22 Active amLODIPine (NORVASC) 5 mg tabletIndications: Essential hypertension Take 1 tablet (5 mg total) by mouth daily 90 tablet 3 10/26/19 22 Active tamsulosin (FLOMAX) 0.4 mg extended release capsuleIndications :Benign prostatic hyperplasia with lower urinary tract symptoms, symptom details unspecified Take 1 capsule (0.4 mg total) by mouth daily 30 capsule 11 07/02/20 23 Active ketorolac (ACULAR) 0.5 % ophthalmic solution 05/27/20 24 Active metFORMIN (GLUCOPHAGE) 500 mg tablet Take 1 tablet (500 mg total) by mouth daily 05/13/20 24 Active predniSONE (DELTASONE) 50 mg tabletIndications: CT prep 50 mg to be taken orally 13 hours, 7 hours, and 1 hour prior to exam 3 tablet 07/31/20 24 Active diphenhydrAMINE (BENADRYL) 50 mg capsuleIndications :CT prep 50 mg orally [address] 1 capsule 07/31/20 24 Active Active Problems Problem Noted Date Diagnosed Date Diastasis recti 07/31/2024 Assessment & Plan (07/31/2024 9:15 AM ENERGY CROP F[employer]ER): We have discussed the upper midline bulge [...] 07/31/2024 Assessment & Plan (07/31/2024 9: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): I have discussed given the very small [...] Leukocytosis 04/08/2021 Coronary artery disease invo lving [place] coronary artery of [place] heart without angina pectoris 01/13/2020 Asbestos exposure 12/11/2018 Chest pain 12/10/2018 Overview (12/11/2018): Added automatically from request for surgery [id number] Obesity (BMI 30-39.9) 07/15/2018 Pulsatile tinnitus 01/14/2018 [...] specif ied substances, undetermined, initial encounter 05/29/2016 Resolved Problems Problem Noted Date Diagnosed Date Resolved Date Preoperative cardiovascular examination 01/13/2020 10/25/2021 History of coronary artery stent placement 01/13/2020 01/13/2020 Unstable angina 12/11/2018 01/13/2020 Presence of stent in artery 06/29/2017 01/13/2020 Adiposity 06/01/2016 07/15/2018 Overview (11/23/2016): Obesity (BMI 30.0-34.9) Coronary artery disease due to lipid rich plaque 06/01/2016 01/13/2020 Overview (11/23/2016): Coronary artery disease of [place] artery of [place] heart with stable angina pectoris Immunizations Immunization Administration Dates Next Due Pfizer SARS-CoV-2 Monovalent Vaccination (12+ Yrs) PURPLE 11/04/2020,10/17/2020 Social History Tobacco Use Types Packs/Day Years Used Date Smoking Tobacco: Never Smokeless Tobacco: Never Tobacco Cessation:Counseling Given: Yes Alcohol Use Standard Drinks/Week Comments No 0 (1 standard drink = 0.6 oz pur e alcohol) AUDIT-C Answer Date Recorded Q1: How often do you have a drink containing alc ohol? Never 04/14/2021 Average Number of Drinks Not on file 021 Frequency of Binge Drinking Not on file 03/21 Sex and Gender Information Value Date Recorded Sex Assigned at Not on file Legal Sex Male 2:10 PM [employer] Gender Identity Not on file Sexual Orientation Not on file Last Filed Vital Signs Vital Sign Reading Time Taken Comments Blood Pressure 172/81 07/31/2024 8:25 AM ENERGY [employer]ER Pulse 81 07/31/2024 8:25 AM ENERGY [employer] Temperature 36.2 C (97.1 F) 07/31/2024 8:25 AM ENERGY [employer]ER Respiratory Rate 14 09/21/2022 2:55 PM ENERGY [employer]ER Oxygen Saturation 99% 07/31/2024 8:25 AM ENERGY [employer]ER Inhaled Oxygen Concentration - - Weight 117.5 kg (259 lb 1.6 oz) 07/31/2024 8:25 AM ENERGY [employer] Height 182.9 cm (6') 07/31/2024 8:25 AM ENERGY [employer]ER Body Mass Index 35.14 07/31/2024 8:25 AM ENERGY [employer]ER Plan of Treatment Not on file Medical Devices Implanted Type Area Gas Distribution Supervisor Device Identifier Shelf Expiration Date Model / Serial / Lot [employer] [id number] Synergy 2.25mm 24mm 144cm Radiopaque 1 Access Port Inflation - [id number] Implanted:Qty: 1 on 12/13/2018 by Shawn Roth MD at [facility] [employer] 09/22/2020 [id number] / / [id number] [facility] [employer] [id number] Angio-Seal Vip [employer]-Plus 6fr .035in 70cm Hemostatic Latex Free - [id number] Implanted:Qty: 1 on 12/13/2018 by Shawn Roth MD at [facility] [employer] 08/19/2019 [id number] / / [id number] Procedures Procedure Name Priority Date/Time Associated Diagnosis Comments FL ESOPHAGRAM, DOUBLE CONTRAST Schedule Routine, Read Routine (OP Routine) 09/04/2024 8:23 AM ENERGY [employer] Gastroesophageal reflux disease without esophagitis CT CHEST ABDOMEN W CONTRAST Schedule Routine, Read Routine (OP Routine) 09/04/2024 8:03 AM ENERGY [employer]ER Abdominal pain CREATININE, WHOLE BLOOD STAT 09/04/2024 7:35 AM ENERGY CROP F[employer]ER from Last 3 Months Results * FL Esophagram, Double Contrast (09/04/2024 8:23 AM ENERGY [employer]ER) Anatomical Region Laterality Modality Body N/A Radio Fluoroscop y 09/04/2024 12:4 1 PM ENERGY [employer]ER Narrative 09/04/2024 12:43 PM ENERGY [employer] F[employer]ER EXAM DESCRIPTION: FL ESOPHAGRAM BARIUM SWALLOW TO STOMACH, DOUBLE CONTRAST REASON FOR STUDY: hiatal hernia, reflux COMPARISON: CT chest abdomen and pelvis 09/04/2024 RADIATION DOSE: Dose: 2139.29 uGym2 Dose Area Product (DAP) TECHNIQUE: Patient ingested effervescent granules followed by thick and thin barium. FINDINGS: 12.5 mm Barium Tablet: Delay in passage of the tablet from the distal esophagus at the GE junction. ESOPHAGEAL MOTILITY: Tertiary contractions are noted at the distal esophagus. ESOPHAGEAL MUCOSA: Normal mucosa without masses or ulceration. No evidence of stricture. GASTRO-ESOPHAGEAL JUNCTION: No significant hiatal hernia is seen. No reflux is evident. The visualized stomach and small bowel are unremarkable. IMPRESSION: No significant hiatal hernia or reflux is appreciated. Tertiary contractions of the distal esophagus are noted. There is delay in passage of the barium tablet from the GE junction. THIS IS AN ELECTRONICALLY VERIFIED FINAL REPORT 09/04/2024 12:43 PM - Electronically signed by Todd Hudson M.D. KR: CRIS Report ID: [id number] Reading Location: [id number] Procedure Note Todd Hudson MD - 09/04/2024 EXAM DESCRIPTION: FL ESOPHAGRAM BARIUM SWALLOW TO STOMACH, DOUBLECONTRAST REASON FOR STUDY: hiatal hernia, reflux COMPARISON: CT chest abdomen and pelvis 09/04/2024 RADIATION DOSE: Dose: 2139.29 uGym2 Dose Area Product (DAP) TECHNIQUE: Patient ingested effervescent granules followed by thick andthin barium. FINDINGS: 12.5 mm Barium Tablet: Delay in passage of the tablet from the distal esophagus at the GE junction. ESOPHAGEAL MOTILITY: Tertiary contractions are noted at the distal esophagus. ESOPHAGEAL MUCOSA: Normal mucosa without masses or ulceration. Noevidence of stricture. GASTRO-ESOPHAGEAL JUNCTION: No significant hiatal hernia is seen. Noreflux is evident. The visualized stomach and small bowel are unremarkable. IMPRESSION: No significant hiatal hernia or reflux is appreciated. Tertiarycontractions of the distal esophagus are noted. There is delay in passage of thebarium tablet from the GE junction. THIS IS AN ELECTRONICALLY VERIFIED FINAL REPORT 09/04/2024 12:43 PM - Electronically signed by Todd Hudson M.D. 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 Reconstructed coronal and sagittal MPR images reviewed. All images stored on PACS. Automated exposure control was used as a dose optimization technique for this examination. CONTRAST TYPE/DOSE: 100mL of IOVERSOL 350 MG IODINE/ML INTRAVENOUS SYRINGE was injected via the intravenous COMPARISON: 11/20/2022 CT chest, 12/19/2021 CT abdomen and pelvis REFERENCE: Per ACR white paper recommendations, unless otherwise specified no follow-up imaging is recommended for incidental renal and adrenal lesions per consensus recommendations based on imaging criteria. Further lab evaluation could be pursued based on clinical findings. FINDINGS: CHEST LUNGS: No nodules or masses. No pneumonia. PLEURA: There are bilateral pleural calcifications. There is mild left pleural thickening, not significantly changed. No enhancing pleural lesions are appreciated. There is a right pleural lipoma measuring approximately 5 cm, unchanged. MEDIASTINUM/JANNA: No identified masses or abnormal nodes. There is concentric thickening of the esophagus. HEART: Heart size is normal with no pericardial effusion. VASCULATURE CHEST: Atheromatous disease of the aorta with coronary artery calcification. No aneurysms of the aorta. AXILLA: No adenopathy. CHEST WALL: No masses. No subcutaneous air. HARDWARE/LIFELINES: None. MUSCULOSKELETAL CHEST: There are multiple healed right rib fractures. ABDOMEN LIVER: Normal size. No identified cystic or solid masses. GALLBLADDER: No stones. No wall thickening or inflammatory changes. BILE DUCTS: No intrahepatic or extrahepatic ductal dilatation. SPLEEN: Normal size. No focal lesions. PANCREAS: No identified cystic or solid masses. No significant calcifications. No adjacent inflammation or peripancreatic fluid collections. Pancreatic duct not dilated. ADRENALS: Normal. KIDNEYS/URINARY TRACT: No identified significant solid masses. There is a cyst on the superior pole of the left kidney unchanged. No stones. No hydronephrosis or hydroureter. Symmetric enhancement. GI: No dilated bowel loops. No obvious wall thickening. Normal appendix. No visualized significant diverticular disease. PERITONEUM: No visualized ascites or free air. There is an enlarged portacaval lymph node measuring 2.2 x 1.6 cm. A peripancreatic lymph node is identified measuring 1.3 cm. RETROPERITONEUM: No mass or adenopathy. VASCULATURE ABDOMEN: No abdominal aortic aneurysm. MUSCULOSKELETAL ABDOMEN: No acute finding. OTHER: No significant abnormality. IMPRESSION: No evidence of aortic aneurysm. 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 Concentric thickening of the esophagus. Recommend upper endoscopy for further evaluation. Enlarged portacaval and peripancreatic lymph nodes. Consider follow-up CT in 3 months. THIS IS AN ELECTRONICALLY VERIFIED FINAL REPORT 09/05/2024 11:56 AM - Electronically signed by Marylou Morley M.D. AB: Report ID: [id number] Reading Location: [place] [address] Procedure Note Marylou Morley MD - 09/05/2024 EXAM DESCRIPTION: CT CHEST ABDOMEN W CONTRAST REASON FOR STUDY: Aortic aneurysm suspected Trouble swallowing and sob, history of asbestosis TECHNIQUE: CT scan of the chest and abdomen performed with intravenousand without oral contrast using helical scanning technique with dynamic intravenous contrast injection. Reconstructed coronal and sagittal MPRimages reviewed. All images stored on PACS. Automated exposure control wasused as a dose optimization technique for this examination. CONTRAST TYPE/DOSE: 100mL of IOVERSOL 350 MG IODINE/ML INTRAVENOUSSYRINGE was injected via the intravenous COMPARISON: 11/20/2022 CT chest, 12/19/2021 CT abdomen and pelvis REFERENCE: Per ACR white paper recommendations, unless otherwise specifiedno follow-up imaging is recommended for incidental renal and adrenal lesionsper consensus recommendations based on imaging criteria. Further labevaluation could be pursued based on clinical findings. FINDINGS: CHEST LUNGS: No nodules or masses. No pneumonia. PLEURA: There are bilateral pleural calcifications. There is mild left pleural thickening, not significantly changed. No enhancing pleurallesions are appreciated. There is a right pleural lipoma measuring approximately5 cm, unchanged. MEDIASTINUM/JANNA: No identified masses or abnormal nodes. There is concentric thickening of the esophagus. HEART: Heart size is normal with no pericardial effusion. VASCULATURE CHEST: Atheromatous disease of the aorta with coronary artery calcification. No aneurysms of the aorta. AXILLA: No adenopathy. CHEST WALL: No masses. No subcutaneous air. HARDWARE/LIFELINES: None. MUSCULOSKELETAL CHEST: There are multiple healed right rib fractures. ABDOMEN LIVER: Normal size. No identified cystic or solid masses. GALLBLADDER: No stones. No wall thickening or inflammatory changes. BILE DUCTS: No intrahepatic or extrahepatic ductal dilatation. SPLEEN: Normal size. No focal lesions. PANCREAS: No identified cystic or solid masses. No significant calcifications. No adjacent inflammation or peripancreatic fluidcollections. Pancreatic duct not dilated. ADRENALS: Normal. KIDNEYS/URINARY TRACT: No identified significant solid masses. There tereza cyst on the superior pole of the left kidney unchanged. No stones. No hydronephrosis or hydroureter. Symmetric enhancement. GI: No dilated bowel loops. No obvious wall thickening. Normal appendix.No visualized significant diverticular disease. PERITONEUM: No visualized ascites or free air. There is an enlarged portacaval lymph node measuring 2.2 x 1.6 cm. A peripancreatic lymph nodeis identified measuring 1.3 cm. RETROPERITONEUM: No mass or adenopathy. VASCULATURE ABDOMEN: No abdominal aortic aneurysm. MUSCULOSKELETAL ABDOMEN: No acute finding. OTHER: No significant abnormality. IMPRESSION: No evidence of aortic aneurysm. 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 Concentric thickening of the esophagus. Recommend upper endoscopy forfurther evaluation. Enlarged portacaval and peripancreatic lymph nodes. Consider follow-up CTin 3 months. THIS IS AN ELECTRONICALLY VERIFIED FINAL REPORT 09/05/2024 11:56 AM - Electronically signed by Marylou Morley M.D. 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 09/04/2024 7:38 AM ENERGY CROP F[employer]ER Hardeep Long MD LAB BLOOD ORDERA BLES Final Result [facility] [address] Department [place] [address] from Last 3 Months Insurance [employer] CHOICE MEDICARE PPO [employer] MEDICARE HMO [facility] CHOICE MEDICARE PPO [facility] MEDICARE HMO [facility] CHOICE MEDICARE PPO Advance Directives For more information, please contact: [phone] * Full Code (Latest Code Status on File) Date Activated Date Inactivated Comments 12/10/2018 9:13 PM 12/14/2018 9:26 PM Healthcare Agents on File Name Relationship Healthcare Agent Relationsia p Communication Fransisca Pierce Spouse Health Care Agent Care Teams Exchange Administrator Relationship Specialty Start Date End Date Saida Rubio PA PCP - General 07/27/17 Shawn Roth MD [address] [address] [id number] Consulting Physician Cardiology 12/14/18
--- OUTSIDE RECORDS SUMMARY | 2024-10-29 08:57 | XMS_ITS | Clinical Summary ---
Author Organization [facility] Address [address] [place] [address] Care Team Providers Care Hands And Dial Inspector Name Role Phone Saida Rubio Primary Care Pr ovider Shawn Roth MD Unavailable Allergies Active Allergy Reactions Criticality Noted Date Comments Codeine Unknown High 07/02/2023 Iodinated Contrast Media Hives,Itching,Rash High Metoclopramide Unknown High 07/02/2023 Propoxyphene-Acetaminophen Unknown High Unclassified Drug Unknown 04/01/2019 Vancomycin Unknown High [...] 3 doses total 25 tablet 11 12/12/19 Active Additional Information Patient not taking.Reported on 06/18/2024 carvediloL (COREG) 25 mg tablet Take 1 tablet (25 mg total) by mouth 2 (two) times a day 01/13/20 Active rosuvastatin (CRESTOR) 40 mg tabletIndications: 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,Mixed hyperlipidemia Take 1 tablet (40 mg total) by mouth daily 90 tablet 3 01/13/20 Active indomethacin (INDOCIN) 50 mg capsule Take [...] 07/31/2024 Assessment & Plan (07/31/2024 9:15 AM TOWING PILOT): We have discussed the upper midline bulge [...] 07/31/2024 Assessment & Plan (07/31/2024 9:16 AM TOWING PILOT): I have discussed given the very small [...] Leukocytosis 04/08/2021 Coronary artery disease invo lving quinault coronary artery of quinault heart without angina pectoris 01/13/2020 Asbestos exposure 12/11/2018 Chest pain 12/10/2018 Overview (12/11/2018): Added automatically from request for surgery [id number] Obesity (BMI 30-39.9) 07/15/2018 Pulsatile tinnitus 01/14/2018 [...] 01/13/2020 Overview (11/23/2016): 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 Encounters Date Type Department Care Team Description 09/12/[address] [place] [address] Hardeep Long MD 09/04/2024 9:00 AM TOWING PILOT Lab [address] [address] 09/04/2024 7:10 AM TOWING PILOT - 09/04/2024 11:59 PM TOWING PILOT Hospital Encounter [address] [address] Abdominal pain Discharge Disposition: Discharge to home or self care 09/04/2024 7:00 AM TOWING PILOT - 09/04/2024 11:59 PM TOWING PILOT Hospital Encounter [address] [address] Sindy Neri Fluoro Gastroesophageal reflux disease without esophagitis Discharge Disposition: Discharge to home or self care 09/03/[address] [address] Carito Cody 07/31/2024 8:30 AM TOWING PILOT Office Visit [address] [address] Hardeep Long MD Gastroesophageal reflux disease without esophagitis (Primary Dx); Diastasis recti; Hiatal hernia 07/31/[address] [address] Rochelle Hill RN 07/31/2024 Orders Only [address] [place] [address] Hardeep Long MD Abdominal pain (Primary Dx) from Last 3 Months Immunizations Immunization Administration Dates Next Due Pfizer SARS-CoV-2 Monovalent Vaccination (12+ Yrs) PURPLE 11/04/2020,10/17/2020 Surgical History Surgery Date Site/Laterality Comments SINUS SURGERY Sinus Surgery - (Added by Conv) BACK SURGERY Back Surgery - (Added by Conv) KNEE SURGERY Knee Surgery - (Added by TW Conv) SHOULDER SURGERY Shoulder Surgery - (Added by TW Conv) [place] UNLISTED PROCEDURE ABDOME N PERITONEUM & OMENTUM Hernia Repair - (Added by TW Conv) BLADDER SURGERY CATARACT EXTRACTION, BILATERAL Medical History Medical History Date Comments Hx Other Medical Some type of ge netic prob causing lung dz, Dr. Mcbride; Comments: 06/01/2016 - Hx Other Medical TKR; Comments: 06/01/2016 - Hx Other Medical Foot surgery, h ernia, hemmorrhoids,; Comments: 06/01/2016 - Chronic obstructive pulmonar y disease (HCC) COPD Hx Other Medical Bladder, two villa rgeries; Comments: 06/01/2016 - Hx Other Medical Umbilical herni a repair; Comments: 06/01/2016 - Hx Other Medical Shoulder surger ies bilat, lumbar disc surgery; Comments: 06/01/2016 - Personal history of other di seases of the circulatory system History of hypertension - (A dded by TW Conv) Personal history of other en docrine, nutritional and metabolic disease History of high chol esterol - (Added by TW Conv) Personal history of other en docrine, nutritional and metabolic disease History of thyroid d isorder - (Added by TW Conv) Personal history of neoplasm of uncertain behavior History of neoplasm of bladd er - (Added by TW Conv) Anxiety Bladder cancer (HCC) Hypertension Hypercholesteremia Depression Herpes Chronic kidney disease Prostate disease Thyroid disease Pleural plaque due to asbestos exposure 06/18/20 24 Family History Medical History Relation Name Comments Heart disease Brother Other Brother of heart a neurysm whic burst; Lung cancer Father Other Father Alive and well; COPD Mother COPD; Cancer Mother Other Mother Uncertain; Caus e of : Uncertain Heart attack Sister Relation Name Status Comments Brother Father Mother Sister Social History Tobacco Use Types Packs/Day Years [...] on file Legal Sex Male 2:10 PM TOWING PILOT Gender Identity Not on file Sexual Orientation Not on file Obstetrics History Last Filed Vital Signs Vital Sign Reading Time Taken Comments Blood Pressure 172/81 07/31/2024 8:25 AM TOWING PILOT Pulse 81 07/31/2024 8:25 AM TOWING PILOT Temperature 36.2 C (97.1 F) 07/31/2024 8:25 AM TOWING PILOT Respiratory Rate 14 09/21/2022 2:55 PM TOWING PILOT Oxygen Saturation 99% 07/31/2024 8:25 AM TOWING PILOT Inhaled Oxygen Concentration - - Weight 117.5 kg (259 lb 1.6 oz) 07/31/2024 8:25 AM TOWING PILOT Height 182.9 cm (6') 07/31/2024 8:25 AM TOWING PILOT Body Mass Index 35.14 07/31/2024 8:25 AM TOWING PILOT Plan of Treatment Health Maintenance Due Date Last Done Comments Colon Cancer Screening-Colonoscopy 1954 Depression Screening 1954 Fall Risk Assessment 1954 Hepatitis C Screening 1954 DTaP/Tdap/Td Vaccine (1 - Tdap) 1965 Hepatitis B Screening 1972 Zoster Vaccine (1 of 2) 2004 Well Visit 65+ 2019 Pneumococcal vaccine 65+ (3 of 3 - PCV20 or PCV21) 10/05/2022 10/05/2017, 01/04/2013 Covid-19 Vaccine (4 - season) 2024 07/18/2021, 11/04/2020, 10/17/2020 Influenza Vaccine (#1) 2024 9, 10/05/2017, 10/05/2017 Medical Devices Implanted Type Area Stand Up Forklift Operator Device Identifier Shelf Expiration Date Model / Serial / Lot Goshi [id number] Synergy 2.25mm 24mm 144cm Radiopaque 1 Access Port Inflation - [id number] Implanted:Qty: 1 on 12/13/2018 by Shawn Roth MD at [facility] G[employer] 09/22/2020 [id number] / / [id number] Daig Pet[employer] [id number] Angio-Seal Vip Bondek-Plus 6fr .035in 70cm Hemostatic Latex Free - [id number] Implanted:Qty: 1 on 12/13/2018 by Shawn Roth MD at [facility] 08/19/2019 [id number] / / [id number] Procedures Procedure Name Priority Date/Time Associated Diagnosis Comments FL ESOPHAGRAM, DOUBLE CONTRAST Schedule Routine, Read Routine (OP Routine) 09/04/2024 8:23 AM TOWING PILOT Gastroesophageal reflux disease without esophagitis CT CHEST ABDOMEN W CONTRAST Schedule Routine, Read Routine (OP Routine) 09/04/2024 8:03 AM TOWING PILOT Abdominal pain CREATININE, WHOLE BLOOD STAT 09/04/2024 7:35 AM TOWING PILOT from Last 3 Months Results * FL Esophagram, Double Contrast (09/04/2024 8:23 AM TOWING PILOT) Anatomical Region Laterality Modality Body N/A Radio Fluoroscop y 09/04/2024 12:4 1 PM TOWING PILOT Narrative 09/04/2024 12:43 PM TOWING PILOT EXAM DESCRIPTION: FL ESOPHAGRAM BARIUM SWALLOW TO [...] Todd Hudson M.D. KR: CRIS Report ID: [id number] Reading Location: [place] [address] Procedure Note Todd Hudson MD - 09/04/2024 [...] Electronically signed by Todd Hudson M.D. KR: KR Report ID: [id number] Reading Location: [place] [address] Hardeep Long MD IMG FLUOROSCOPY PROCEDURES Final Result * CT Chest Abdomen W Contrast (09/04/2024 8:03 AM TOWING PILOT) Anatomical Region Laterality Modality Body N/A Computed Tomogra phy 09/05/2024 11:3 5 AM TOWING PILOT Narrative 09/05/2024 11:56 AM TOWING PILOT EXAM DESCRIPTION: CT CHEST ABDOMEN W CONTRAST [...] by Marylou Morley M.D. AB: Report ID: [id number] Reading Location: [place] [address] Procedure Note Marylou Morley MD - 09/05/2024 [...] by Marylou Morley M.D. AB: Report ID: [id number] Reading Location: [id number] Hardeep Long MD IMG CT PROCEDURE S Final Result * Creatinine, whole blood (09/04/2024 7:35 AM TOWING PILOT) Creatinine, bld 1.05 0.60 - 1.30 mg/dL Blood 09/04/2024 7:35 AM TOWING PILOT 09/04/2024 7:38 AM TOWING PILOT Hardeep Long MD LAB BLOOD ORDERA BLES Final Result [facility] [place] [address] from Last 3 Months Insurance HUMANA CHOICE MEDICARE PPO HUMANA MEDICARE HMO HUMANA CHOICE MEDICARE PPO HUMANA MEDICARE HMO HUMANA CHOICE MEDICARE PPO Advance Directives For more information, please contact: [phone] * Full Code (Latest Code Status on File) Date Activated Date Inactivated Comments 12/10/2018 9:13 PM 12/14/2018 9:26 PM Healthcare Agents on File Name Relationship Healthcare Agent Relationshi p Communication Fransisca Pierce Spouse Health Care Agent Care Teams Hands And Dial Inspector Relationship Specialty Start Date End Date Saida Rubio PA PCP - General 07/27/17 Shawn Roth MD [address] [address] Consulting Physician Cardiology 12/14/18
--- OUTSIDE RECORDS SUMMARY | 2024-10-29 08:57 | XMS_ITS | CONTINUITY OF CARE DOCUMENT ---
Author Name sakina presley Address Unknown Organization [facility] Address [address] [place] [address] Phone [phone] Care Team Providers Care Retort Unloader Name Role Phone Myron RAMOS, Bam Unavailable BEULAH CAIN Unavailable BEULAH CAIN Unavailable [phone] PROBLEMS Condition Status Date Provider Notes CAD, s/p stents in 2004 PDA & LAD, MICHAEL in 2019 active Bam Sanches MD Hypertension active Bam Sanches MD GERD completed - Bam Sanches MD Hyperlipidemia active Bam Sanches MD RESTLESS LEG SYNDROME completed - Bam Sanches MD Shortness of breath active Bam Sanches MD Asbestos exposure, pleural plaquing, on O2 active Bam Sanches MD SANDY, on vent. at night active Bam Sanches MD Diabetes mellitus, type 2 active Bam robbins MD Hypothyroidism active Bam Sanches MD Bladder cancer, hx of active Bam Mccall ENCOUNTERS Date Type Provider Location Encounter Diag nosis - In-person encounter Office Visit Bam Sanches MD [facility] - In-person encounter Office Visit Bam Sanches MD [facility] CAD, s/p stents in 2004 PDA & LAD, MICHAEL in 2018HypertensionGERDHype rlipidemiaRESTLESS LEG SYNDROMEShortness of breathAsbestos exposure, pleural plaquing, on O2OSA, on vent. at nightDiabetes mellitus, type 2HypothyroidismBladder cancer, hx of - In-person encounter Office Visit Esperanza Carlin MD [facility] - In-person encounter Office Visit Esperanza Carlin MD [facility] CAD, s/p stents in 2004 PDA & LAD, MICHAEL in 2019Hypertension - In-person encounter Office Visit Esperanza Carlin MD [facility] Shortness of breath - In-person encounter Office Visit Esperanza Carlin MD [facility] CAD, s/p stents in 2004 PDA & LAD, MICHAEL in 2019Hypertension VITAL SIGNS Date Observation Value Provider Body Mass Index (Ratio) 35.12 kg/m2 Jan Sanches MD blood pressure, diastolic 97 mm[Hg] [facility] blood pressure, systolic 191 mm[Hg] [facility] oxygen saturation, oximetry 97 % [facility] pulse rate 88 /min [facility] respiratory rate E&M 12 /min [facility] weight E&M 259 [lb_av] [facility] height E&M 72 [in_i] [facility] blood pressure, cuff size regular [facility] Body Mass Index (Ratio) 37.02 kg/m2 Randy Craig pulse rate 75 /min Arabella Halifax blood pressure, cuff size regular [facility] blood pressure, diastolic 64 mm[Hg] [facility] blood pressure, systolic 136 mm[Hg] [facility] oxygen saturation, oximetry 98 % Arabella Halifax respiratory rate E&M 18 /min Arabella hand weight E&M 273 [lb_av] Arabella Saucedo height E&M 72 [in_i] Arabella Saucedo blood pressure, diastolic 60 mm[Hg] Johan Rajput RN blood pressure, systolic 108 mm[Hg] Ralph Rajput RN pulse rate 61 /min Ralph Rajput RN oxygen saturation, oximetry 99 % Ralph Rajput RN respiratory rate E&M 16 /min Ralph paiz RN weight E&M 236 [lb_av] Ralph Rajput RN blood pressure, diastolic, left arm 89 mm [Hg] Dia Jordin blood pressure, systolic, left arm 146 mm [Hg] Dia Jordin blood pressure, diastolic, right arm 73 m m[Hg] Dia [place] blood pressure, systolic, right arm 134 m m[Hg] Dia [place] blood pressure, diastolic 73 mm[Hg] Fe britany Jordin blood pressure, systolic 134 mm[Hg] Fel icia Jordin pulse rate 79 /min Dia [place] oxygen saturation, oximetry 97 % Dia Jordin respiratory rate E&M 18 /min Dia [place] weight E&M 264 [lb_av] Dia [place] blood pressure, diastolic 71 mm[Hg] Johan Rajput RN blood pressure, systolic 124 mm[Hg] Ralph Rajput RN pulse rate 87 /min Ralph Rajput RN oxygen saturation, oximetry 97 % Ralph Rajput RN respiratory rate E&M 16 /min Ralph paiz RN weight E&M 272 [lb_av] Ralph Rajput RN blood pressure, diastolic 85 mm[Hg] Te vicente Felton blood pressure, systolic 145 mm[Hg] Ter neelam Felton pulse rate 97 /min Kat Felton oxygen saturation, oximetry 98 % Kat Felton respiratory rate E&M 20 /min Kat young weight E&M 253 [lb_av] Kat Felton HISTORY OF MEDICATION USE Medication Status Instructions Dates Provider Indications Com ments rosuvastatin 40 mg tablet active Randy Craig levothyroxine 50 mcg tablet active Randy Craig tamsulosin 0.4 mg capsule active Randy Craig metformin 500 mg tablet extended release 24 hr active Randy Craig allopurinol 100 mg tablet active Randy Craig venlafaxine 150 mg capsule,extended release 24hr active Randy Craig carvedilol 12.5 mg tablet active TAKE 1 TABLET BY MOUTH TWICE A DAY Bam Sanches MD lisinopril-hydroc hlorothiazide 10-12.5 mg tablet active Take 1 tablet by mouth once a day 5 Randy Craig amlodipine 5 mg tablet completed - 5 Randy Craig THYROID TABS completed 1 once a day 5 - 5 Randy Craig AMITRIPTYLINE HCL 50 MG ORAL TABLET completed 2 tablet at bedtime - 5 Ralph Rajput RN AMBIEN CR 12.5 MG ORAL TABLET EXTENDED RELEASE completed - 5 Ralph Rajput RN RANITIDINE ACID GROUND SURVEILLANCE SYSTEMS OPERATOR TABLET completed 150 mg daily - 5 Ralph Rajput RN Diovan 320 mg tablet completed 1 tablet once a day - 5 Randy Craig SEROQUEL TABLET completed 500 MG QHS - 0 Kat Felton ATENOLOL 50 MG ORAL TABLET completed ONE TAB. DAILY - 5 Ralph Rajput RN PREVACID 30 MG ORAL CAPSULE DELAYED RELEASE completed ONE TAB. DAILY - 0 Kat Felton aspirin 325 mg tablet completed 1 tablet once a day - 5 Randy Craig pravastatin 40 mg tablet completed 1 tablet once a day - 5 Randy Craig Tricor 145 mg tablet completed 1 tablet once a day - 5 Randy Craig SOCIAL HISTORY Date Observation Value Provider smoking status Former smoker Randy Lindsay i smoking status Former smoker Arabella Saucedo Exercise counseling No - Patient Refused Arabella Saucedo social history reviewed E&M reviewed Ralph Rajput RN social history reviewed E&M reviewed Ralph Rajput RN social history reviewed E&M reviewed Ralph Rajput RN number of children 2 children Ralph suarez RN social history E&M Marital Statu s: Yvan hernandez: 2 children L bautista with family/friends E thnicity: Ralph Rajput RN social history reviewed E&M reviewed Ralph Rajput RN caffeine use, averag e drinks per day yes [employer] alcohol use, average drinks per day none [employer] smoking status Non-smoker [employer] FUNCTIONAL STATUS Date Observation Value Provider HRA, CV Assess/Plan, Angina (inactive) Management Plan continue current therapy Randy Craig MENTAL STATUS Date Observation Value Provider assessment of judgme nt and insight E&M Alert and oriented to time, place and person. Mood and affect are normal. Ralph Rajput RN assessment of judgme nt and insight E&M Alert and oriented to time, place and person. Mood and affect are normal. Ralph Rajput RN assessment of judgme nt and insight E&M Alert and oriented to time, place and person. Mood and affect are normal. Ralph Rajput RN assessment of judgme nt and insight E&M Alert and oriented to time, place and person. Mood and affect are normal. Ralph Rajput RN INSURANCE PROVIDERS Payer name Policy type / Coverage type [place] red libertarian ID HUMANA O [id number] ADVANCE DIRECTIVES Name Date DISCUSSED - NO DECISION MADE TREATMENT PLAN Date Name Performer Cardiology Bam Sanches MD Cardiology: H is updated medication list for this problem includes: Rosuvastatin 40 Mg Tablet (Rosuvastatin) Bam Sanches MD Cardiology: H is updated medication list for this problem includes: Carvedilol 12.5 Mg Tablet (Carvedilol) ..... Take 1 tablet by mouth twice a day Lisinopril-hydrochlorothiazide 10-12.5 Mg Tablet (Lisinopril-hydrochlorothiazide) ..... Take 1 tablet by mouth once a day Bam Sanches MD Cardiology:This visi t has been a part of the consistent, comprehensive, and ongoing management of the chronic medical condition(s) listed above for the patient. His updated medication list for this problem includes: Carvedilol 12.5 Mg Tablet (Carvedilol) ..... Take 1 tablet by mouth twice a day Lisinopril-hydrochlorothiazide 10-12.5 Mg Tablet (Lisinopril-hydrochlorothiazide) ..... Take 1 tablet by mouth once a day Bam Sanches MD Cardiology: His updated medication list for this problem includes: Carvedilol 12.5 Mg Tablet (Carvedilol) Lisinopril-hydrochlorothiazide 10-12.5 Mg Tablet (Lisinopril-hydrochlorothiazide) ..... Take 1 tablet by mouth once a day Amlodipine 5 Mg Tablet (Amlodipine) Randy Craig Cardiology: B P today: 136/64 P rior BP: 108/60 (05/04/2010) H is updated medication list for this problem includes: Carvedilol 12.5 Mg Tablet (Carvedilol) Lisinopril-hydrochlorothiazide 10-12.5 Mg Tablet (Lisinopril-hydrochlorothiazide) ..... Take 1 tablet by mouth once a day Amlodipine 5 Mg Tablet (Amlodipine) Randy Craig Cardiology: H is updated medication list for this problem includes: Rosuvastatin 40 Mg Tablet (Rosuvastatin) Randy Craig Cardiology Randy Craig Cardiology: H is updated medication list for this problem includes: Metformin 500 Mg Tablet Extended Release 24 Hr (Metformin) Lisinopril-hydrochlorothiazide 10-12.5 Mg Tablet (Lisinopril-hydrochlorothiazide) ..... Take 1 tablet by mouth once a day Randy Craig Cardiology: H is updated medication list for this problem includes: Levothyroxine 50 Mcg Tablet (Levothyroxine) Randy Lindsayneelam Cardiology Randytommy Mejiamike routine:Etiology? H is updated medication list for this problem includes: Diovan 320 Mg Tabs (Valsartan) ..... One tab. daily Aspirin 325 Mg Tabs (Aspirin) ..... One tab daily Atenolol 50 Mg Tabs (Atenolol) ..... One tab. daily Esperanza Carlin MD fu: H is updated medication list for this problem includes: Tricor 145 Mg Tabs (Fenofibrate) ..... One tab daily Lipitor 40 Mg Tabs (Atorvastatin calcium) ..... 1 tablet daily Aspirin 325 Mg Tabs (Aspirin) ..... One tab daily Atenolol 50 Mg Tabs (Atenolol) ..... One tab. daily BP today: 145/85 Prior BP: / () N uclear Stress Findings: EF - 51%. N o EKG changes diagnostic for ischemia. N ormal perfusion scan. (10/16/2007) C ardiac Cath: EF - 55%. P atent stent in the mid LAD. % PDA stenosis: 60% proximal, 80% distal. (04/13/2005) C ardiac Cath Comments: A 2.5 x 15mm VIsion stent to the PDA stenosis. (04/13/2005) C arotid Doppler/Duplex: < 50% stenosis of the internal carotid arteries bilaterally. (10/16/2007) Esperanza Carlin MD fu: T he following medications were removed from the medication list: Prevacid 30 Mg Cpdr (Lansoprazole) ..... One tab. daily His updated medication list for this problem includes: Ranitidine Acid Chief Innovation Officer Tabs (Ranitidine hcl tabs) ..... 150 mg daily BP today: 145/85 Prior BP: / () D iscussed lifestyle modifications, diet, antacids/medications, and preventive measures. Handout provided. Esperanza Carlin MD fu: H is updated medication list for this problem includes: Tricor 145 Mg Tabs (Fenofibrate) ..... One tab daily Lipitor 40 Mg Tabs (Atorvastatin calcium) ..... 1 tablet daily BP today: 145/85 Prior BP: / () Esperanza Carlin MD fu Esperanza Mccall fu: H is updated medication list for this problem includes: Diovan 320 Mg Tabs (Valsartan) ..... One tab. daily Aspirin 325 Mg Tabs (Aspirin) ..... One tab daily Atenolol 50 Mg Tabs (Atenolol) ..... One tab. daily BP today: 145/85 Esperanza Carlin MD fu: H is updated medication list for this problem includes: Tricor 145 Mg Tabs (Fenofibrate) ..... One tab daily Lipitor 40 Mg Tabs (Atorvastatin calcium) ..... 1 tablet daily Aspirin 325 Mg Tabs (Aspirin) ..... One tab daily Atenolol 50 Mg Tabs (Atenolol) ..... One tab. daily BP today: 145/85 Prior BP: / () N uclear Stress Findings: EF - 51%. N o EKG changes diagnostic for ischemia. N ormal perfusion scan. (10/16/2007) C ardiac Cath: EF - 55%. P atent stent in the mid LAD. % PDA stenosis: 60% proximal, 80% distal. (04/13/2005) C ardiac Cath Comments: A 2.5 x 15mm VIsion stent to the PDA stenosis. (04/13/2005) C arotid Doppler/Duplex: < 50% stenosis of the internal carotid arteries bilaterally. (10/16/2007) Esperanza Carlin MD Date Name Complete Echo Stress Test - Nuclea r Complete Echo Stress Test - Adenos ine HISTORY OF PROCEDURES Procedure Date Procedure Name Provider Procedure Notes S tatus Complex e/m visit add on Bam Sanches MD completed EKG Esperanza Carlin MD complet ed
--- OUTSIDE RECORDS SUMMARY | 2024-10-29 08:57 | XMS_ITS | Continuity of Care Document ---
Author Name [facility] Organization [facility] Care Team Providers Care Police Guard Name Role Phone [facility] Unavailable Unavailable Encounters [...] ADM Date DC Date Status Disposition Source [facility] Outpatient Encounter [id number] 4 04/22 [facility]
--- OUTSIDE RECORDS SUMMARY | 2024-10-29 08:58 | XMS_ITS | Clinical Summary ---
Author Organization [facility] Address [address] [place] [address] Care Team Providers Care Bridge Expert Name Role Phone Saida Grey Primary Care Pr ovider Source Comments [facility],non-owned Affiliates and Associated Physician Practices is amultiple site organization consisting of ambulatory clinics and hospital sitesin [place], [place], [place]. This disclosure is being madepursuant to the Care Everywhere program and may not contain all information available regarding this patient. Last updated 18.[facility] Allergies Active Allergy Reactions Criticality Noted Date Comments Contrast-Iodinated Agents For Ct/Other Itching 10/14/2018 Medications * Be aware that medications may not be up to date on this document. Alwaysverify current medications with the patient. Medication Sig Dispensed Refills Start Date End Date Status lisinopril-hydroch lorothiazide (PRINZIDE; ZESTORETIC) 10-12.5 MG tablet Take 1 (one) tablet by mouth once daily Active carvedilol (COREG) 25 MG tablet Take 1 (one) tablet by mouth 2 times daily with morning and evening meal Active Docusate Sodium (DSS) 100 MG TAKE 1 CAPSULE BY MOUTH EVERY 12 HOURS TO PREVENT CONSTIPATION Active indomethacin (Indocin) 50 MG capsule TAKE 1 CAPSULE BY MOUTH THREE TIMES DAILY WITH MEALS NEEDED FOR GOUT FLARE 10/12/2022 Active levothyroxine (Synthroid) 50 MCG tablet Take 1 (one) tablet by mouth once daily Active metFORMIN ER 24hr (Glucophage XR) 500 MG tablet TAKE 1 TABLET BY MOUTH EVERY DAY AT DINNER 01/10/2023 Active nitroGLYCERIN (Nitrostat) 0.[address] 1 TABLET UNDER TONGUE EVERY 5 MINS, UP TO 3 DOSES NEEDED FOR CHEST PAIN Active rosuvastatin (Crestor) 40 MG tablet Take 1 (one) tablet by mouth once daily 01/04/2023 Active tamsulosin (Flomax) 0.4 MG capsule 01/14/2023 Active venlafaxine XR 24hr (Effexor XR) 150 MG capsule Take 1 (one) capsule by mouth once daily Active amLODIPine (Norvasc) 5 MG tablet Take 0.5 (one-half) tablet by mouth once daily 10/25/2021 Active allopurinol (Zyloprim) 100 MG tablet Take 1 (one) tablet by mouth once daily 02/26/2023 Active citalopram (CeleXA) 20 MG tablet Take 1 (one) tablet by mouth once daily Active tobramycin-dexAMET Hasone (TobraDex) 0.3-0.1 % ophthalmic suspension Instill 1 (one) drop into both eyes 4 times daily 2.5 mL 01/15/2024 Active ketorolac (Toradol) 10 MG tablet Take 1 (one) tablet by mouth every 6 hours as needed for Pain 10 tablet 01/15/2024 Active Active Problems Problem Noted Date Diagnosed Date COPD (chronic obstructive pulmonary disease) Overview (01/04/2024): aspestis exposure/ pleural plaque 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 02/28/2023 Coronary artery disease invo lving resighini coronary artery of resighini heart without angina pectoris 01/13/2020 02/28/2023 Asbestos exposure 12/11/2018 02/28/2023 Obesity (BMI 30-39.9) 07/15/2018 02/28/2023 Obstructive sleep apnea syndrome 03/13/2018 02/28/2023 Hypercholesterolemia 04/22/2008 02/28/2023 Family History Medical History Relation Name Comments Heart Failure Brother CAD (Coronary Artery Disease) Father Cancer Mother Diabetes Mother CAD (Coronary Artery Disease) Paternal Grandfather Relation Name Status Comments Brother Father Mother Paternal Grandfather Social History Tobacco Use Types Packs/Day Years Used Date Smoking Tobacco: Never Smokeless Tobacco: Never Tobacco Cessation:Counseling Given: Not Answered Alcohol Use Standard Drinks/Week Comments No 0 (1 standard drink = 0.6 oz pur e alcohol) AUDIT-C Answer Date Recorded Q1: How often do you have a drink containing alcohol? Never 01/15/2024 Q2: How many drinks containi ng alcohol do you have on a typical day when you are drinking? Patient does not drink Q3: How often do you have si x or more drinks on one occasion? Never 01/15/2024 Sex and Gender Information Value Date Recorded Sex Assigned at Not on file Gender Identity Not on file Sexual Orientation Not on file Last Filed Vital Signs Vital Sign Reading Time Taken Comments Blood Pressure 130/73 01/15/2024 6:00 PM CDT Pulse 76 01/15/2024 6:00 PM CDT Temperature 36.7 C (98.1 F) 01/15/2024 5:53 PM CDT Respiratory Rate 16 01/15/2024 6:10 PM CDT Oxygen Saturation 92% 01/15/2024 6:10 PM CDT Inhaled Oxygen Concentration - - Weight 115.3 kg (254 lb 1.6 oz) 024 11:33 AM CDT Height 182.9 cm (6') 01/15/2024 11:33 AM CDT Body Mass Index 34.46 01/15/2024 11:33 AM CDT Plan of Treatment Health Maintenance Due Date Last Done Comments COLOGUARD (AGES 45-75) - COL ON CA SCREENING 1954 COLON MONITORING 1954 COLONOSCOPY - COLON CA SCREENING 1954 CT COLONOGRAPHY - COLON CA SCREENING 1954 Colorectal Cancer Screening 1954 FIT - COLON CA SCREENING 1954 FLEX SIG - COLON CA SCREENING 1954 HEPATITIS C SCREENING 03/17/1972 DTAP/TDAP/TD VACCINES (1 - Tdap) 1973 PNEUMOCOCCAL VACCINE 50+ (1 of 2 - PCV) 1973 ZOSTER VACCINE (1 of 2) 2004 Respiratory Syncytial Virus (RSV) Vaccine Pt: or over 60 yrs (1 - Risk 60-74 years 1-dose series) 2014 COVID-19 VACCINE (4 - 2023-2 5 season) 2024 07/18/2021, 11/04/2020, 10/17/2020 INFLUENZA VACCINE (#1) 2024 9, 10/05/2017 DEPRESSION SCREENING 08/20/2024 MEDICARE AWV CALENDAR YEAR 2024 SCREENING FOR DIABETES 01/14/2027 4, 01/15/2024, 01/04/2024 HEPATITIS B VACCINE Aged Out No longe r eligible based on patient's age to complete this topic HIB VACCINE Aged Out No longer eligi ble based on patient's age to complete this topic HPV VACCINE Aged Out No longer eligi ble based on patient's age to complete this topic MENINGOCOCCAL (Group B) VACCINE SHARED DECISION-MAKING Aged Out No longer eligible based on patient's age to complete this topic MENINGOCOCCAL GROUPS A/C/Y/W VACCINE Aged Out No longer eligible b ased on patient's age to complete this topic Procedures Procedure Name Priority Date/Time Associated Diagnosis Comments GLUCOSE - POINT OF CARE Routine 01/15/2024 12:24 PM CDT from Last 3 Months or Most Recently Relevant to Health Maintenance Results * (ABNORMAL) GLUCOSE - POINT OF CARE (01/15/2024 12:24 PM CDT) Glucose WB/POC 149(H) 70 - 115 mg/dL 01/15/2024 12:25 PM CDT [facility] Specimen Type Venous 01/15/2024 12:25 PM CDT [facility] Blood BLOOD SPECIMEN / Unknown 01/15/2024 12:24 PM CDT 01/15/2024 12:25 PM CDT Hardik Marroquin MD LAB - POINT OF CARE ORDERABLES [facility] [address] [place] [address], [facility] [phone] from Last 3 Months or Most Recently Relevant to Health Maintenance Care Teams Bridge Expert Relationship Specialty Start Date End Date Saida Grey PA [address] [place] [address] PCP - General Physician Air Cargo Specialist Supervisor 06/13/23
--- OUTSIDE RECORDS SUMMARY | 2024-10-29 08:58 | XMS_ITS | Encounter Summary ---
Author Organization [facility] Care Team Providers Care Planning Manager Name Role Phone Adria Padron MD Primary Care Provider [phone]- [phone] Adria Padron MD Primary Care Provider +1- [phone] Saida Rubio Primary Care Pr ovider Shawn Roth MD Unavailable Encounter Details Date Type Department Care Team (Latest Contact Info) Description 05/20/2014 Orders Only [facility]IN[facility] ProviderBrian MD [address] [place] [id number] Social History Tobacco Use Types Packs/Day Years Used Date Smoking Tobacco: Never Assessed Sex and Gender Information Value Date Recorded Sex Assigned at Not on file 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 Historical Provider Final Res ult documented in this encounter Visit Diagnoses Not on filedocumented in this encounter Care Teams Planning Manager Relationship Specialty Start Date End Date Adria Padron MD [address] [place] [address] PCP - General 06/08/16 07/26/17 Adria Padron MD [address] [place] [address] PCP - General 06/01/16 06/07/16 Saida Rubio PA [address] [place] [address] PCP - General 07/27/17 Shawn Roth MD [address] [facility] [address] [place] [address] Consulting Physician Cardiology 12/14/18 documented as of this encounter
--- OUTSIDE RECORDS SUMMARY | 2024-10-29 08:58 | XMS_ITS | Data Portability ---
Author Organization [facility] [employer], Main Office Address [address] [place] [address] Assessment No assessment recorded. Plan of Treatment Reminders Order Date Submit Date Provider Last Modified By Organization Details Last Modified Time Details Appointments None recorded. Lab lipid panel, serum 2022 023 [employer] [facility], [address], [place], [address], 3 16:05:25 BMP, serum or plasma 2022 023 [employer] [facility], [address], [place], [address], 3 16:05:26 hepatic function panel, serum 2022 023 [employer] [facility], [address], [place], [address], 3 16:05:29 CBC w/ auto diff 2022 023 [employer] [facility], [address], [place], [address], 3 16:05:30 vitamin B12 + folate, serum or blood 2022 023 [employer] [facility], [address], [place], [address], 3 16:05:31 HbA1c (hemoglobin A1c), blood 2022 023 [employer] [facility], [address], [place], [address], 3 16:05:28 microalbumi n/creatinin e, mass ratio, urine 2022 023 [facility], [address], [place], [address], 3 16:05:23 TSH + free T4, serum 2022 023 [employer] [facility], [address], [place], [address], 3 16:05:24 Referral None recorded. Procedures None recorded. Surgeries None recorded. Imaging CT, chest, w/o contrast - Approved [id number] 11/15/2022- 12/15/20222022 023 [facility], [address], [place], [address], 3 17:40:45 Medication Orders venlafaxine ER 150 mg capsule,ext ended release 24 hr 2022 023 [facility] #[id number], [address] [place] [address], [id number], 3 12:06:09 carvedilol 12.5 mg tablet 2022 023 [facility] #[id number], [address] [place] [address], [id number], 3 12:05:53 prednisone 20 mg tablet 2022 023 [email or web address] 4 [facility] #[id number], [address] [place] [address], [id number], 3 12:42:50 azithromyci n 250 mg tablet 2022 023 [email or web address] 4 [facility] #75881, [address], [place], [place], [phone], 3 12:42:37 Patient TargetsNo targets recorded. Patient InstructionsNo instructions recorded. Reason for Referral None Reported. Results Created Date Observation Date Name Description Value Unit Range Abnormal Flag Note LastModifiedBy Organization Detail LastModifiedTime 08/07/2008/08/2023 ALBUM IN, RANDO M URINE W/CRE ATINI NE creatinine, random urine 377 mg/dL 20-320 high Verif ied by repea t carlton sis. Not Available [facility] [address] [address] [place], [address], 08/08/2023 16:05:22 08/07/20 23 08/08/2023 ALBUM IN, RANDO M URINE W/CRE ATINI NE albumin, urine 29.8 mg/dL see note: normal Refer ence Range : Refer ence Range Not estab lishe d Verif ied by repea t carlton sis. Not Available [facility] [address] [place], [address], 08/08/2023 16:05:22 08/07/20 23 08/08/2023 ALBUM IN, RANDO M URINE W/CRE ATINI NE albumin/crea tinine ratio, random urine 79 mcg/m g_cre at <30 high The ADA defin es abnor malit ies in album in excre tion as follo ws: Album inuri a Categ ory Resul t (mcg/ mg creat inine ) Chen l to Mildl y incre ased <30 Moder ately incre ased 30-29 9 Sever bobby incre ased > OR = 300 The ADA recom mends that at least two of three speci mens colle cted withi n a 3-6 month perio d be abnor mal befor e consi josé g a patie nt to be withi n a diagn ostic categ ory. Not Available [facility] [address] [place], [address], 08/08/2023 16:05:22 08/07/20 23 08/08/2023 TSH+F REE T4 TSH 2.00 mIU/L 0.40-4 .50 normal Not Available [address], [address], 08/08/2023 16:05:24 08/07/20 23 08/08/2023 TSH+F REE T4 T4, free 1.2 NG/dL 0.8-1. 8 normal Not Available [address], [address], 08/08/2023 16:05:24 08/07/20 23 08/08/2023 LIPID PANEL , STAND STEVE cholesterol, total 112 mg/dL <200 normal Not Available [address], [address], 08/08/2023 16:05:25 08/07/20 23 08/08/2023 LIPID PANEL , STAND STEVE HDL cholesterol 38 mg/dL > or = 40 low Not Available [address], [address], 08/08/2023 16:05:25 08/07/20 23 08/08/2023 LIPID PANEL , STAND STEVE triglyceride s 233 mg/dL <150 high If a non-f astin g speci men was colle cted, consi maximiliano repea t trigl yceri de testi ng on a fasti ng speci men if clini sherrill indic ated. Sigifredo morgan et al. J. of Clin. Lipid ol. 2015; 9:129 -169. Not Available [address], [address], 08/08/2023 16:05:25 08/07/20 23 08/08/2023 LIPID PANEL , STAND STEVE LDL-choleste rol 45 mg/dL _(patricia c) normal Refer ence range : <100 Ayanna able range <100 mg/dL for prima ry preve ntion ; <70 mg/dL for patie nts with CHD or diabe tic patie nts with > or = 2 CHD risk facto rs. LDL-C is now calcu lated using the Deepti n-Hop kins linda cantu, which is a valid ated novel treeo roma john accur acy than the Fried bessie equat ion in the estim ation of LDL-C . Deepti cantu SS et al. TERRY. 2013; 310(1 9): 2061- 2068 (http ://ed ucati on.Qu estDi Secant [employer]os [employer]s. com/f aq/FA Q164) Not Available [facility] [address] [place], [address], 08/08/2023 16:05:25 08/07/20 23 08/08/2023 LIPID PANEL , STAND STEVE chol/HDLC ratio 2.9 (calc ) <5.0 normal Not Available [employer] [address] [address] [address], [place], [address], 08/08/2023 16:05:25 08/07/20 23 08/08/2023 LIPID PANEL , STAND STEVE non HDL cholesterol 74 mg/dL _(patricia c) <130 normal For patie nts with diabe yesi plus 1 major ASCVD risk facto r, treat ing to a non-H DL-C goal of <100 mg/dL (LDL- C of <70 mg/dL ) is consi dered a romario nair optio n. Not Available [employer] [facility] [address] [place], [address], 08/08/2023 16:05:25 08/07/20 23 08/08/2023 BASIC METAB OLIC PANEL glucose 235 mg/dL 65-99 high Fasti ng refer ence inter mary For someo ne witho ut known diabe yesi, a gluco se value >125 mg/dL indic ates that they may have diabe yesi and this shoul d be confi rmed with a follo w-up test. Not Available [facility] [address] [place], [address], 08/08/2023 16:05:26 08/07/20 23 08/08/2023 BASIC METAB OLIC PANEL urea nitrogen (BUN) 14 mg/dL 7-25 normal Not Available [address], [address], 08/08/2023 16:05:26 08/07/20 23 08/08/2023 BASIC METAB OLIC PANEL creatinine 1.16 mg/dL 0.70-1 .35 normal Not Available [address], [address], 08/08/2023 16:05:26 08/07/20 23 08/08/2023 BASIC METAB OLIC PANEL eGFR 68 mL/mi n/1.7 3m2 > or = 60 normal Not Available [address], [address], 08/08/2023 16:05:26 08/07/20 23 08/08/2023 BASIC METAB OLIC PANEL BUN/creatini ne ratio SEE NOTE: (calc ) 6-22 Not Repor yves: BUN and Creat inine are withi n refer ence range . Not Available [address], [address], 08/08/2023 16:05:26 08/07/20 23 08/08/2023 BASIC METAB OLIC PANEL sodium 136 mmol/ L 135-14 6 normal Not Available [address], [address], 08/08/2023 16:05:26 08/07/20 23 08/08/2023 BASIC METAB OLIC PANEL potassium 3.9 mmol/ L 3.5-5. 3 normal Not Available [address], [address], 08/08/2023 16:05:26 08/07/20 23 08/08/2023 BASIC METAB OLIC PANEL chloride 96 mmol/ L 98-110 low Not Available [place] [address] [place], [address], 08/08/2023 16:05:26 08/07/20 23 08/08/2023 BASIC METAB OLIC PANEL carbon dioxide 31 mmol/ L 20-32 normal Not Available [facility] [address] [place], [address], 08/08/2023 16:05:26 08/07/20 23 08/08/2023 BASIC METAB OLIC PANEL calcium 9.5 mg/dL 8.6-10 .3 normal Not Available [facility] [address] [place], [address], 08/08/2023 16:05:26 08/07/20 23 08/08/2023 HEMOG LOBIN A1C hemoglobin A1C 9.3 %_of_ total _HGB <5.7 high For someo ne witho ut known diabe yesi, a hemog lobin A1c value of 6.5% or great er indic ates that they may have diabe yesi and this shoul d be confi rmed with a follo w-up test. For someo ne with known diabe yesi, a value <7% indic ates that their diabe yesi is well contr olled and a value great er than or equal to 7% indic ates subop timal contr ol. A1c targe ts shoul d be indiv idual ized based on durat ion of diabe yesi, age, comor bid condi tions , and other consi derat ions. Curre ntly, no conse nsus exist s regar ding use of hemog lobin A1c for diagn osis of diabe yesi for child ronaldo. Not Available [facility] [address] [place], [address], 08/08/2023 16:05:28 08/07/20 23 08/08/2023 HEPAT IC FUNCT ION PANEL protein, total 6.9 g/dL 6.1-8. 1 normal Not Available [facility] [address] [place], [address], 08/08/2023 16:05:29 08/07/20 23 08/08/2023 HEPAT IC FUNCT ION PANEL albumin 4.5 g/dL 3.6-5. 1 normal Not Available [address], [address], 08/08/2023 16:05:29 08/07/20 23 08/08/2023 HEPAT IC FUNCT ION PANEL globulin 2.4 g/dL_ (calc ) 1.9-3. 7 normal Not Available [address], [address], 08/08/2023 16:05:29 08/07/20 23 08/08/2023 HEPAT IC FUNCT ION PANEL albumin/glob ulin ratio 1.9 (calc ) 1.0-2. 5 normal Not Available [address], [address], 08/08/2023 16:05:29 08/07/20 23 08/08/2023 HEPAT IC FUNCT ION PANEL bilirubin, total 0.8 mg/dL 0.2-1. 2 normal Not Available [address], [address], 08/08/2023 16:05:29 08/07/20 23 08/08/2023 HEPAT IC FUNCT ION PANEL bilirubin, direct 0.2 mg/dL < or = 0.2 normal Not Available [address], [address], 08/08/2023 16:05:29 08/07/20 23 08/08/2023 HEPAT IC FUNCT ION PANEL bilirubin, indirect 0.6 mg/dL _(patricia c) 0.2-1. 2 normal Not Available [address], [address], 08/08/2023 16:05:29 08/07/20 23 08/08/2023 HEPAT IC FUNCT ION PANEL alkaline phosphatase 85 U/L 35-144 normal Not Available [facility] [address] [address] [place], [address], 08/08/2023 16:05:29 08/07/20 23 08/08/2023 HEPAT IC FUNCT ION PANEL AST 18 U/L 10-35 normal Not Available [address], [address], 08/08/2023 16:05:29 08/07/20 23 08/08/2023 HEPAT IC FUNCT ION PANEL ALT 27 U/L 9-46 normal Not Available [address], [address], 08/08/2023 16:05:29 08/07/20 23 08/08/2023 CBC (INCL UDES DIFF/ PLT) white blood cell count 11.3 thous and/u L 3.8-10 .8 high Not Available [address], [address], 08/08/2023 16:05:30 08/07/20 23 08/08/2023 CBC (INCL UDES DIFF/ PLT) red blood cell count 5.57 nuha on/uL 4.20-5 .80 normal Not Available [address], [address], 08/08/2023 16:05:30 08/07/20 23 08/08/2023 CBC (INCL UDES DIFF/ PLT) hemoglobin 14.7 g/dL 13.2-1 7.1 normal Not Available [facility] [address], [address], 08/08/2023 16:05:30 08/07/20 23 08/08/2023 CBC (INCL UDES DIFF/ PLT) hematocrit 44.8 % 38.5-5 0.0 normal Not Available [employer] [address], [address], 08/08/2023 16:05:30 08/07/20 23 08/08/2023 CBC (INCL UDES DIFF/ PLT) MCV 80.4 fL 80.0-1 00.0 normal Not Available [address], [address], 08/08/2023 16:05:30 08/07/20 23 08/08/2023 CBC (INCL UDES DIFF/ PLT) MCH 26.4 pg 27.0-3 3.0 low Not Available [address], [address], 08/08/2023 16:05:30 08/07/20 23 08/08/2023 CBC (INCL UDES DIFF/ PLT) MCHC 32.8 g/dL 32.0-3 6.0 normal Not Available [address], [address], 08/08/2023 16:05:30 08/07/20 23 08/08/2023 CBC (INCL UDES DIFF/ PLT) RDW 13.8 % 11.0-1 5.0 normal Not Available [address], [address], 08/08/2023 16:05:30 08/07/20 23 08/08/2023 CBC (INCL UDES DIFF/ PLT) platelet count 340 thous and/u L 140-40 0 normal Not Available [address], [address], 08/08/2023 16:05:30 08/07/20 23 08/08/2023 CBC (INCL UDES DIFF/ PLT) MPV 9.3 fL 7.5-12 .5 normal Not Available [address], [address], 08/08/2023 16:05:30 08/07/20 23 08/08/2023 CBC (INCL UDES DIFF/ PLT) absolute neutrophils 5085 cells /uL 1500-7 800 normal Not Available [address], [address], 08/08/2023 16:05:30 08/07/20 23 08/08/2023 CBC (INCL UDES DIFF/ PLT) absolute lymphocytes 5334 cells /uL 850-39 00 high Not Available [address], [address], 08/08/2023 16:05:30 08/07/20 23 08/08/2023 CBC (INCL UDES DIFF/ PLT) absolute monocytes 520 cells /uL 200-95 0 normal Not Available [address], [address], 08/08/2023 16:05:30 08/07/20 23 08/08/2023 CBC (INCL UDES DIFF/ PLT) absolute eosinophils 294 cells /uL 15-500 normal Not Available [address], [address], 08/08/2023 16:05:30 08/07/20 23 08/08/2023 CBC (INCL UDES DIFF/ PLT) absolute basophils 68 cells /uL 0-200 normal Not Available [address], [address], 08/08/2023 16:05:30 08/07/20 23 08/08/2023 CBC (INCL UDES DIFF/ PLT) neutrophils 45 % normal Not Available [address], [address], 08/08/2023 16:05:30 08/07/20 23 08/08/2023 CBC (INCL UDES DIFF/ PLT) lymphocytes 47.2 % normal Not Available [address], [address], 08/08/2023 16:05:30 08/07/20 23 08/08/2023 CBC (INCL UDES DIFF/ PLT) monocytes 4.6 % normal Not Available [facility] [address] [place], [address], 08/08/2023 16:05:30 08/07/20 23 08/08/2023 CBC (INCL UDES DIFF/ PLT) eosinophils 2.6 % normal Not Available [facility] [address], [address], 08/08/2023 16:05:30 08/07/20 23 08/08/2023 CBC (INCL UDES DIFF/ PLT) basophils 0.6 % normal Not Available [facility] [address], [address], 08/08/2023 16:05:30 08/07/20 23 08/08/2023 VITAM IN B12/F OLATE , SERUM PANEL vitamin B12 395 pg/mL 200-11 00 normal Pleas e Note: Altho ugh the refer ence range for vitam in B12 is 200-1 100 pg/mL , it has been repor yves that betwe en 5 and 10% of patie nts with value s betwe en 200 and 400 pg/mL may exper ience neuro psych iatri c and hemat ologi c abnor malit ies due to occul t B12 defic iency ; less than 1% of patie nts with value s above 400 pg/mL will have sympt oms. Not Available [address], [address], 08/08/2023 16:05:31 08/07/20 23 08/08/2023 VITAM IN B12/F OLATE , SERUM PANEL folate, serum 10.7 NG/mL normal Refer ence Range Low: <3.4 Borde rline : 3.4-5 .4 Chen l: >5.4 Not Available [facility] [address] [address] [place], [address], 08/08/2023 16:05:31 08/30/19 23 05/18/2020 PET-C T, skull base to mid-t high scan No observ ation record ed. [id number] Not Available 10/18/2022 02:59:40 09/01/19 23 05/18/2020 PET-C T, skull base to mid-t high scan No observ ation record ed. [email or web address]. Not Available 10/18/2022 02:59:40 09/01/19 23 07/11/2022 CT, chest , w/o contr ast No observ ation record ed. [email or web address]. [address] , [place], [address], 10/18/2022 02:59:40 09/01/19 23 06/26/2009 CT, thora cic spine , w/ contr ast No observ ation record ed. [email or web address]. Not Available 10/18/2022 02:59:40 09/01/19 23 10/26/2011 CT, thora cic spine , w/o contr ast No observ ation record ed. [email or web address]. Not Available 10/18/2022 02:59:40 11/21/19 23 11/20/2022 CT, chest , w/o contr ast No observ ation record ed. [email or web address] [facility] 2022 Darrick Lopez [address] [address], [place], [address], 11/27/2022 21:52:21 01/23/20 23 01/22/2023 MRI, brain + orbit s, w/wo contr ast No observ ation record ed. [email or web address] [address] , [place], [address], 05/08/2023 18:02:34 01/24/20 23 01/22/2023 MRI, brain + orbit s, w/wo contr ast No observ ation record ed. [email or web address] [address] , [place], [address], 01/31/2023 15:00:52 Result Notes None recorded. Problems Name Problem SNOMED Code Status Onset Date Resolution Date Notes Provider Name and Address Organization Details Recorded Time Leukocytosis 302182209 Active 2021 Not Available [facility] 3 02:51:37 Benign essential hypertension 6825090 Active 2018 Not Available [facility] 3 02:51:37 Neoplasm of urinary bladder 088540245 Active 2016 Not Available [facility] 3 02:51:37 Hypercholeste rolemia 93142341 Active 2016 Not Available [facility] 3 02:51:37 Chronic obstructive pulmonary disease 73258931 Active 2017 Not Available [facility] 3 02:51:37 History of asbestos exposure 679558297 Active 2017 Not Available [facility] 3 02:51:37 Insomnia 715492611 Active 2021 Not Available [facility] 3 02:51:37 Acute exacerbation of chronic obstructive pulmonary disease 264357200 Active 2021 Not Available [facility] 3 02:51:38 Asbestos-umesh sara pleural plaque 412813039 Active 2017 Not Available [facility] 3 02:51:38 Gastroesophag eal reflux disease 680722015 Active 2018 Not Available [facility] 3 02:51:38 Long-term drug therapy Active 2021 Not Available [facility] 3 02:51:38 Mixed hyperlipidemi a 342303772 Active 2021 Not Available [facility] 3 02:51:38 Clbki-[id number] rypsin deficiency 46352181 Active 2021 Not Available [facility] 3 02:51:38 Dehydration 75307256 Active 2021 Not Available [facility] 3 02:51:38 Depressive disorder 23400728 Active 2021 Not Available [facility] 3 02:51:38 Restrictive lung disease 27305736 Active 2018 Not Available [facility] 3 02:51:38 Hypertensive disorder 62749044 Active 2016 Not Available [facility] 3 02:51:38 Hypoxia 283772310 Active 2021 Not Available [facility] 3 02:51:39 Chronic respiratory failure 26880948 Active 2021 Not Available [facility] 3 02:51:39 Body mass index 40+ - severely obese 121835458 Active 2017 Not Available [facility] 3 02:51:39 Stented artery 840008517 Active 2016 Not Available [facility] 3 02:51:39 Hypothyroidis m 39703898 Active 2018 Not Available [facility] 3 02:51:39 History of placement of stent for coronary artery disease 185361456 Active 2021 Not Available [facility] 3 02:51:39 Serum cholesterol borderline high 739012257 Active 2016 Not Available [facility] 3 02:51:39 Coronary atheroscleros is 074728130 Active 2021 Not Available [facility] 3 02:51:39 Uncontrolled type 2 diabetes mellitus 165630283 Active 2021 Not Available [facility] 3 02:51:39 Chronic thyroiditis 13676471 Active 2016 Not Available [facility] 3 02:51:39 Cough 01818809 Active 2021 Not Available [facility] 3 02:51:40 Acute upper respiratory infection 84846870 Active 2021 Not Available [facility] 3 02:51:40 Dyspnea on exertion 69877961 Active 2017 Not Available [facility] 3 02:51:40 Allergic rhinitis 99644684 Active 2021 Not Available [facility] 3 02:51:40 Vitamin B12 deficiency (non anemic) 73824070 Active 2021 Not Available [facility] 3 02:51:40 Obstructive sleep apnea syndrome 86172402 Active 2017 Not Available [facility] 3 02:51:40 Hiatal hernia 97157213 Active 2022 Not Available [facility] 3 02:51:40 Impaired glucose tolerance 6020332 Active 2021 Not Available [facility] 3 02:51:40 Atypical chest pain 251257805 Active 2022 Fanny Carmichael, [facility] [address], [place], [address] , [employer] 3 16:17:13 Abducens nerve palsy 258455527 Active 2022 QIANA Melchor [address], [address], [place], [address] , [employer] 3 14:06:02 Hyperuricemia 20572291 Active 2022 QIANA Melchor [address], [address], [place], [address] , [employer] 3 15:38:40 Gastroesophag eal reflux disease without esophagitis 763253716 Active 2022 QIANA Melchor [address], [address], [place], [address] , [employer] 3 11:39:28 Mixed anxiety and depressive disorder 104455451 Active 2022 QIANA Melchor [address], [address], [place], [address] , [employer] 3 12:09:11 Problem Notes None recorded. Procedures Surgical History Date Name Laterality Status Provider Name and Address Organization Details Recorded Time 12/14/19 19 Stent completed Not Available [facility] 3 02:45:45 12/20/19 18 Colonoscopy completed Not Available [facility] 10/19/19 23 02:45:45 Orthopedic Surgery completed Not Available [facility] 10/18/2022 02:45:45 Orthopedic Surgery completed Not Available [facility] 10/18/2022 02:45:45 Orthopedic Surgery completed Not Available [facility] 10/18/2022 02:45:45 Hernia Repair completed Not Available [facility] 10/18/2022 02:45:45 Ligation of hemorrhoid(s) completed Not Available [facility] 10/18/2022 02:45:45 Sinus Surgery completed Not Available [facility] 10/18/2022 02:45:45 Kidney/Bladder Surgery completed Not Available [facility] 10/18/2022 02:45:45 Imaging Results Imaging Date Name Status LastModified by Organiz ation Details LastModified Time 05/18/2020 PET-CT, skull base to mid-thigh scan completed [id number] Information not available 10/18/2022 02:59:40 05/18/2020 PET-CT, skull base to mid-thigh scan completed [id number] Information not available 10/18/2022 02:59:40 07/11/2022 CT, chest, w/o contrast completed [id number] [facility] [address] [place] [address] [place], [address], 10/18/2022 02:59:40 06/26/2009 CT, thoracic spine, w/ contrast completed [id number] Information not available 10/18/2022 02:59:40 10/26/2011 CT, thoracic spine, w/o contrast completed [id number] Information not available 10/18/2022 02:59:40 11/20/2022 CT, chest, w/o contrast completed [email or web address] [facility] 2022 Darrick Lopez [facility] [address], [place], [address], 11/27/2022 21:52:21 01/22/2023 MRI, brain + orbits, w/wo contrast completed [email or web address] [address] [place], [address], 05/08/2023 18:02:34 01/22/2023 MRI, brain + orbits, w/wo contrast completed [address] [place], [address], 01/31/2023 15:00:52 Procedure Notes None recorded. Medical Equipment None Reported. Allergies Allergen ID Allergen Name Allergen Category Reaction Reaction Severity Criticality Documentation Date Start Date Code Code System Note Provider Name and Address Organization Details Recorded Time 4605 Iodinated contrast media (substanc e) medicatio n hives Not available Not available 10/18/2022 90681 2003 SNOMED Not Available [facility] 3 02:59:11 Medications Name Sig Start Date Stop Date Status Note LastModified by Organization Details LastModified Time amoxicilli n 500 mg capsule TAKE ONE CAPSULE BY MOUTH THREE TIMES DAILY UNTIL ALL TAKEN 04/26 completed Not Available Not Available Not Available carvedilol 25 mg tablet TAKE 1 TABLET BY MOUTH TWICE DAILY 07/24 completed Not Available Not Available Not Available venlafaxin e ER 37.5 mg capsule,ex tended release 24 hr TAKE 1 CAPSULE BY MOUTH DAILY DIRECTED (START AFTER STOPPING CITALOPRA M) 07/08 completed take TWO tabs po daily now. Not Available Not Available Not Available venlafaxin e ER 75 mg capsule,ex tended release 24 hr TAKE 1 CAPSULE BY MOUTH EVERY DAY 01/03 completed Not Available Not Available Not Available carvedilol 12.5 mg tablet TAKE 1 TABLET BY MOUTH TWICE DAILY active Not Available Not Available No t Available ipratropiu m 0.5 mg-albuter ol 3 mg (2.5 mg base)/3 mL nebulizati on soln Inhale 3 mL 4 times a day by nebulizat ion route as directed for 30 days. active Not Available Not Available No t Available albuterol sulfate 2.5 mg/3 mL (0.083 %) solution for nebulizati on Inhale 3 mL 3 times a day by nebulizat ion route for 30 days. active Not Available Not Available No t Available ciprofloxa bernadine 750 mg tablet Take 1 tablet every 12 hours by oral route as directed for 7 days. 12/31 completed Not Available Not Available Not Available azithromyc in 250 mg tablet TAKE 2 TABLETS (500 MG) BY ORAL ROUTE ONCE DAILY FOR 1 DAY THEN 1 TABLET (250 MG) BY ORAL ROUTE ONCE DAILY FOR 4 DAYS 07/23 completed Not Available Not Available Not Available benzonatat e 200 mg capsule Take 1 capsule 3 times a day by oral route as needed for 10 days. active Not Available Not Available No t Available hydrocodon e 5 mg-acetami nophen 325 mg tablet TAKE ONE TABLET BY MOUTH EVERY 4-6 HOURS NEEDED FOR PAIN 04/26 completed Not Available Not Available Not Available prednisone 20 mg tablet TAKE 3 TABLETS BY MOUTH EVERY DAY IN THE MORNING FOR 5 DAYS 07/23 completed Not Available Not Available Not Available metoprolol succinate ER 100 mg tablet,ext ended release 24 hr 05/27 completed Not Available Not Available Not Available venlafaxin e ER 150 mg capsule,ex tended release 24 hr TAKE 1 CAPSULE BY MOUTH EVERY DAY 2022 active Not Available Not Available Not Avai lable lidocaine HCl 2 % mucosal jelly Take 200 mg by mucous route. 06/18 completed Not Available Not Available Not Available hydroxyzin e HCl 50 mg tablet TAKE 1 TABLET BY MOUTH EVERY DAY AT BEDTIME active Not Available Not Available No t Available acetaminop hen 300 mg-codeine 30 mg tablet TK 1 TO 2 TS PO Q 6 H PRN P 04/30 completed Not Available Not Available Not Available clopidogre l 75 mg tablet Take 1 tablet every day by oral route. 2021 active Not Available Not Available Not Avai lable amlodipine 5 mg tablet TAKE 1 TABLET BY MOUTH DAILY active Not Available Not Available No t Available allopurino l 100 mg tablet TAKE 1 TABLET BY MOUTH DAILY active Not Available Not Available No t Available ciprofloxa bernadine 500 mg tablet 09/05 completed Not Available Not Available Not Available hydrocodon e 10 mg-acetami nophen 325 mg tablet 06/04 completed Not Available Not Available Not Available tramadol 50 mg tablet Take 1 tablet every 8 hours by oral route as needed for 10 days. 09/20 completed Not Available Not Available Not Available carvedilol 3.125 mg tablet 05/27 completed Not Available Not Available Not Available isosorbide mononitrat e ER 60 mg tablet,ext ended release 24 hr 05/27 completed Not Available Not Available Not Available levothyrox ine 88 mcg tablet Take 1 tablet every day by oral route in the morning. 03/24 completed Not Available Not Available Not Available alprazolam 0.5 mg tablet Take 1 tablet twice a day by oral route as needed. 09/16 completed Not Available Not Available Not Available citalopram 20 mg tablet TAKE 1 TABLET BY MOUTH EVERY DAY active Not Available Not Available No t Available tamsulosin 0.4 mg capsule TK ONE C PO D active Not Available Not Available No t Available benzonatat e 100 mg capsule TK 1 C PO Q 8 H PRN 04/30 completed Not Available Not Available Not Available levothyrox ine 50 mcg tablet TAKE 1 TABLET BY MOUTH EVERY DAY 2022 active Not Available Not Available Not Avai lable cyanocobal hopkins (vit B-12) 1,000 mcg/mL injection solution Inject 2 mL every month by subcutane ous route. 09/20 completed Not Available Not Available Not Available prednisone 50 mg tablet Take 1 tablet every day by oral route as directed for 5 days. 07/24 completed Not Available Not Available Not Available indomethac in 50 mg capsule TAKE 1 CAPSULE BY MOUTH THREE TIMES DAILY active Not Available Not Available No t Available BD Luer-Diane Syringe 3 mL 25 gauge x 1 DIRECTED MONTHLY WITH B12 INJECTION 07/24 completed Not Available Not Available Not Available nitroglyce rin 0.[address] 1 TABLET UNDER TONGUE EVERY 5 MINS, UP TO 3 DOSES NEEDED FOR CHEST PAIN active Not Available Not Available No t Available docusate sodium 100 mg capsule TAKE 1 CAPSULE BY MOUTH EVERY 12 HOURS TO PREVENT CONSTIPAT ION active Not Available Not Available No t Available pravastati n 20 mg tablet Take 1 tablet every day by oral route. 05/27 completed Not Available Not Available Not Available Levaquin 500 mg tablet Take 1 tablet every 24 hours by oral route as directed for 7 days. 12/28 completed Not Available Not Available Not Available lisinopril 10 mg-hydroch lorothiazi de 12.5 mg tablet TAKE 1 TABLET TWICE DAILY 03/24 completed Not Available Not Available Not Available levofloxac in 750 mg tablet Take 1 tablet every day by oral route as directed for 10 days. active Not Available Not Available No t Available methylpred nisolone 4 mg tablets in a dose pack use as directed 04/01 completed Not Available Not Available Not Available albuterol sulfate HFA 90 mcg/actuat ion aerosol inhaler Inhale 2 puffs every 4 hours by inhalatio n route as needed for 30 days. 07/24 completed Not Available Not Available Not Available ipratropiu m bromide 42 mcg (0.06 %) nasal spray USE 2 SPRAYS IN EACH NOSTRIL THREE TIMES DAILY NEEDED 09/20 completed Not Available Not Available Not Available metformin ER 500 mg tablet,ext ended release 24 hr TAKE 1 TABLET BY MOUTH EVERY DAY AT DINNER 07/24 completed Not Available Not Available Not Available amoxicilli n 875 mg-potassi um clavulanat e 125 mg tablet TAKE ONE TABLET BY MOUTH EVERY 12 HOURS UNTIL GONE. 07/23 completed Not Available Not Available Not Available oxycodone 5 mg tablet TAKE 1 2 TABS BY MOUTH EVERY 4 6 HOURS NEEDED FOR BACK PAIN active Not Available Not Available No t Available hydroxyzin e pamoate 25 mg capsule TAKE 1 TO 2 CAPSULES BY MOUTH EVERY NIGHT AT BEDTIME 04/26 completed Not Available Not Available Not Available Asprin Ec Low Dose 81 mg tablet,del ayed release Take 1 tablet every day by oral route. 06/13 completed Not Available Not Available Not Available DuoNeb 2.5 mg-0.5 mg/3 mL solution for nebulizati on Inhale 3 mL 4 times a day by nebulizat ion route. 12/31 completed Not Available Not Available Not Available rosuvastat in 40 mg tablet TAKE 1 TABLET BY MOUTH EVERY DAY active Not Available Not Available No t Available diazepam 5 mg-7.5 mg-10 mg rectal kit Insert 10 mg by rectal route. 06/18 completed Not Available Not Available Not Available aspirin aspirin 81 takes daily 09/20 completed Not Available Not Available Not Available Ranexa 500 mg tablet,ext ended release 05/27 completed Not Available Not Available Not Available metformin ER 500 mg 24 hr tablet,ext ended release (gastric retention) Take 1 tablet every day by oral route at dinner. 07/24 completed Not Available Not Available Not Available Prevnar 13 (PF) 0.5 mL intramuscu lar syringe 09/05 completed Not Available Not Available Not Available Brilinta 90 mg tablet 05/27 completed Not Available Not Available Not Available Linzess 145 mcg capsule TAKE 1 CAPSULE BY MOUTH ONCE DAILY ON AN EMPTY STOMACH AT LEAST 30 MINUTES BEFORE THE FIRST MEAL OF THE DAY active Not Available Not Available No t Available Anoro Ellipta 62.5 mcg-25 mcg/actuat ion powder for inhalation Inhale 1 puff every day by inhalatio n route as directed for 30 days. 09/20 completed Not Available Not Available Not Available Incruse Ellipta 62.5 mcg/actuat ion powder for inhalation Inhale 1 puff every day by inhalatio n route as directed for 30 days. 12/31 completed Not Available Not Available Not Available Afluria 4529-0255 (PF) 45 mcg(15 mcg x 3)/0.5 mL intramuscu lar syringe 09/05 completed Not Available Not Available Not Available Vitals Date Recorded Body height Body temperature Body weight Heart rate Oxygen saturation Oxygen saturation in Arterial blood by Pulse oximetry Inhaled oxygen flow rate Systolic blood pressure Diastolic blood pressure Provider Name and Address Organization Details Last Updated DateTime 3 182.88 cm 96.8 [degF] 455267. 94 g 62 /min 97 % 97 % 2 L/min 130 mm[Hg] 60 mm[Hg] Britney Saenz RN [facility] [employer] [facility] 3 15:33:22 Date Recorded Body height Body temperature Body mass index (BMI) Body weight Heart rate Oxygen saturation Oxygen saturation in Arterial blood by Pulse oximetry Systolic blood pressure Diastolic blood pressure Provider Name and Address Organization Details Last Updated DateTime 3 182.88 cm 98 [degF] 36.1 kg/m2 900845. 57 g 83 /min 96 % 96 % 138 mm[Hg] 88 mm[Hg] Britney Saenz RN [facility] [employer] [facility] 3 10:27:26 Date Recorded Body height Body mass index (BMI) Body weight Body temperature Heart rate Oxygen saturation Oxygen saturation in Arterial blood by Pulse oximetry Systolic blood pressure Diastolic blood pressure Provider Name and Address Organization Details Last Updated DateTime 3 182.88 cm 35.8 kg/m2 672859. 39 g 97.2 [degF] 80 /min 95 % 95 % 142 mm[Hg] 60 mm[Hg] Lilliam Hanson [place] [employer] [facility] [employer] 3 14:20:32 Date Recorded Body height Body temperature Body mass index (BMI) Body weight Respiratory rate Oxygen saturation Oxygen saturation in Arterial blood by Pulse oximetry Heart rate Systolic blood pressure Diastolic blood pressure Provider Name and Address Organization Details Last Updated DateTime 3 182.88 cm 97.5 [degF] 35.4 kg/m2 353627. 61 g 16 /min 98 % 98 % 81 /min 138 mm[Hg] 70 mm[Hg] HERMINIO Villanueva [place] - [facility] 3 11:34:11 Date Recorded Body height Oxygen saturation Oxygen saturation in Arterial blood by Pulse oximetry Heart rate Body temperature Body weight Systolic blood pressure Diastolic blood pressure Provider Name and Address Organization Details Last Updated DateTime 3 182.88 cm 98 % 98 % 83 /min 97.4 [degF] 057149. 61 g 148 mm[Hg] 80 mm[Hg] Not Available [facility] 3 02:48:27 Social History Question Answer Notes LastModified by Organizat ion Details LastModified Time Tobacco Smoking Status Never Smoker Not Available [facility] 10/18/2022 02:39:08 Do You Have An Advance Directive? No [id number] Information not available 10/18/2022 What Is Your Level Of Alcohol Consumption? None MIGRATION.[id number] 6331 Information not available 10/18/2022 Are You Blind Or Do You Have Difficulty Seeing? No MIGRATION.894291 6582 Information not available 10/18/2022 What Is Your Level Of Caffeine Consumption? None MIGRATION.250877 1497 Information not available 10/18/2022 How Much Tobacco Do You Chew? None MIGRATION.238298 7935 Information not available 10/18/2022 In The 14 Days Before Symptom Onset, Have You Had Close Contact With A Laboratory-confir med COVID-19 While That Case Was Ill? No MIGRATION.[id number] 8966 Information not available 10/18/2022 In The 14 Days Before Symptom Onset, Have You Had Close Contact With A Person Who Is Under Investigation For COVID-19 While That Person Was Ill? No MIGRATION.079299 8249 Information not available 10/18/2022 Are You Deaf Or Do You Have Serious Difficulty Hearing? Yes MIGRATION.310400 5124 Information not available 10/18/2022 What Type Of Diet Are You Following? REGULAR MIGRATION.757147 6168 Information not available 10/18/2022 Which Illicit Or Recreational Drugs Have You Used? None MIGRATION.429932 7430 Information not available 10/18/2022 Do You Or Have You Ever Used E-cigarettes Or Vape? Never Used Electronic Cigarettes MIGRATION.419323 7996 Information not available 10/18/2022 Have There Been Any Changes To Your Family Or Social Situation? No MIGRATION.299920 8460 Information not available 10/18/2022 Are There Any Guns Present In Your Home? Yes MIGRATION.043242 0923 Information not available 10/18/2022 Do You Use Insect Repellent Routinely? No MIGRATION.011502 8671 Information not available 10/18/2022 Do You Have A Medical Power Of Extension Division Director? No MIGRATION.663167 9578 Information not available 10/18/2022 What Was The Date Of Your Most Recent Tobacco Screening? 11/24/2020 MIGRATION.442828 4810 Information not available 10/18/2022 Do You Have Any Pets? Yes MIGRATION.515665 2015 Information not available 10/18/2022 What Is Your Relationship Status? MIGRATION.430684 9280 Information not available 10/18/2022 Do You Use Your Seat Belt Or Car Seat Routinely? Yes MIGRATION.405654 8224 Information not available 10/18/2022 Do You Have Smoke And Carbon Monoxide Detectors In Your Home? Yes MIGRATION.681731 0099 Information not available 10/18/2022 Are You Passively Exposed To Smoke? No MIGRATION.225783 9123 Information not available 10/18/2022 Do You Or Have You Ever Used Smokeless Tobacco? Never Used Smokeless Tobacco MIGRATION.181869 6397 Information not available 10/18/2022 Are There Any Smokers In Your House? No MIGRATION.181139 4564 Information not available 10/18/2022 How Much Tobacco Do You Smoke? No MIGRATION.352340 0413 Information not available 10/18/2022 Do You Use Any Illicit Or Recreational Drugs? No MIGRATION.483687 8043 Information not available 10/18/2022 Do You Use Sunscreen Routinely? Yes MIGRATION.433286 1656 Information not available 10/18/2022 How Many Years Have You Smoked Tobacco? 0 MIGRATION.266741 8653 Information not available 10/18/2022 Have You Recently Traveled Abroad? No MIGRATION.206377 4735 Information not available 10/18/2022 Do You Have Any Dietary Restrictions? No MIGRATION.383349 9895 Information not available 10/18/2022 Do You Or Have You Ever Used Any Other Forms Of Tobacco Or Nicotine? No MIGRATION.834547 4917 Information not available 10/18/2022 Sex: Unknown Functional Status Question Answer Note LastModified by Organizat ion Details LastModified Time Do you have difficulty walking or climbing stairs? No MIGRATION.[id number] 26 Information not available 10/18/2022 Do you have transportation difficulties? No MIGRATION.90003677 26 Information not available 10/18/2022 Do you have difficulty doing errands alone? No MIGRATION.[id number] 26 Information not available 10/18/2022 Are you able to care for yourself? Yes MIGRATION.[id number] 26 Information not available 10/18/2022 Do you have difficulty dressing or bathing? No MIGRATION.32007362 26 Information not available 10/18/2022 What is your exercise level? None MIGRATION.[id number] 26 Information not available 10/18/2022 Mental Status Question Answer Note LastModified by Organizat ion Details LastModified Time Do you have difficulty concentrating, remembering or making decisions? Yes MIGRATION.[id number] 6 Information not available 10/18/2022 Family History Relationship Description Onset Age of this Age Resolved Age Notes LastModified by Organization Details LastModified Time Father Hypertensive disorder MIGRATION.[id number] Not available 10/18/2022 02:45:48 Medical History Condition Response BLINDNESS N NERVE DISEASE N RHEUMATIC FEVER N BLADDER PROBLEMS N KIDNEY STONES N OTHER # 1 N POLIO N LUNG DISEASE/DISORDER Y RADIATION / CHEMOTHERAPY N COPD N Other # 2 N BLOOD DISEASES N SURGERY N EAR OR HEARING PROBLEMS N MUMPS N DEPRESSION (INCLUDING POST ) N BOWEL PROBLEMS Y STROKE/TIA N ULCERS N BENIGN PROSTATIC HYPERPLASIA N MEASLES N MYOCARDIAL INFARCTION N OBESITY N GERD/NAUSEA N ANEURYSM N URINARY/BLADDER/KIDNEY PROBLEMS Y INPATIENT PSYCH CARE N CORONARY ARTERY DISEASE (CAD) Y ADDICTION CONCERNS N ENDOMETRIOSIS N Impotence N USE OF BLOOD THINNERS N SKIN PROBLEMS N GASTROINTESTINAL DISORDER N PERIPHERAL VASCULAR DISEASE N MUSCLE,JOINT OR BONE PROBLEMS N GASTROINTESTINAL BLEEDING N BLOOD CLOTS N ASTHMA N CATARACTS N ERECTILE DYSFUNCTION N VARICOSITIES N GI PROBLEMS N Low Testosterone N INFERTILITY N AIDS/HIV N LIVER DISEASE N MALE HYPOGONADISM N HYPERTENSION Y Deficiency N ANXIETY DISORDER Y BLOOD TRANSFUSION N ANEMIA/BLOOD DISORDER N CHRONIC EAR INFECTIONS N BRONCHITIS N TUBERCULOSIS N GLAUCOMA N DIVERTICULITIS N SLEEP APNEA N CHICKENPOX N INFECTIOUS DISEASE N HEART ARRHYTHMIA N PROSTATE N INSOMNIA N HIGH CHOLESTEROL / HYPERLIPIDEMIA Y HYPERTHYROIDISM N EYE PROBLEMS Y NEUROLOGICAL PROBLEMS N EDEMA N CHRONIC PAIN SYNDROME N HYPOTHYROIDISM N CAROTID BLOCKAGE N CONSTIPATION N BACK / NECK PROBLEMS Y HAVE YOU BEEN HOSPITALIZED OR SEEN IN [facility] IN THE PAST YEAR ? N ATHEROSCLEROSIS N BREAST PROBLEMS N DIALYSIS N ECZEMA N OSTEOPOROSIS N ARTHRITIS N NO SIGNIFICANT PAST MEDICAL HISTORY N APPENDICITIS N DIABETES, TYPE N BAD TEETH N ENT N HEARTBURN / REFLUX N AUTISM SPECTRUM DISORDER (ASD) N HEPATITIS / LIVER DISEASE N PULMONARY DISEASE N GOUT Y SLEEP DISORDER N ALZHEIMER'S DISEASE N Brain Problems N HERPES N DEMENTIA N HEADACHES/MIGRAINES Y SEIZURES/EPILEPSY N VASCULAR DISEASE N PACEMAKER N Blood Disorder N DIZZINESS N HEART DISEASE/HEART PROBLEMS N KIDNEY DISEASE N MULTIPLE SCLEROSIS N CARDIAC ARRHYTHMIA N CANCER: SPECIFY Y ANESTHESIA COMPLICATIONS N ATRIAL FIBRILLATION N Gall Stones N PULMONARY EMBOLISM N AUTOIMMUNE DISEASE N Immunizations Vaccine Type Date Status Note Provider Nam e and Address Organization Details Recorded Time COVID-19, mRNA, LNP-S, PF, 100 mcg/0.5mL dose or 50 mcg/0.25mL dose 1 completed Not Available [facility] 10/18/2022 02:58:58 COVID-19, mRNA, LNP-S, PF, 30 mcg/0.3 mL dose 1 completed Not Available [facility] 10/18/2022 02:58:58 COVID-19, mRNA, LNP-S, PF, 30 mcg/0.3 mL dose 1 completed Not Available [facility] 10/18/2022 02:58:58 influenza, unspecified formulation 8 completed Not Available [facility] 10/18/2022 02:58:59 Pneumococcal conjugate PCV 13 8 completed Not Available [facility] 10/18/2022 02:58:59 Influenza, high-dose, quadrivalent, PF 2 completed Not Available [facility] 10/18/2022 02:58:59 Influenza, high-dose, quadrivalent, PF 1 completed Not Available [facility] 10/18/2022 02:58:59 Influenza, high-dose, quadrivalent, PF 0 completed Not Available [facility] 10/18/2022 02:58:59 Influenza, high-dose, trivalent, PF 9 completed Not Available [facility] 10/18/2022 02:58:59 Past Encounters Encounter ID Performer Location Encounter Start Date Encounter Closed Date Diagnosis/Indication Diagnosis SNOMED-CT Code Diagnosis ICD10 Code Diagnosis Note [id number] [facility] [place] [address] [place] [address] 10/22/2020 00:00:00 11/13/2020 21:13:30 [id number] [facility] [place] [address] [place] [address] 11/24/2020 00:00:00 11/24/2020 15:36:50 [id number] [facility] [place] [address] [place] [address] 11/24/2020 00:00:00 11/25/2020 18:22:56 [id number] [facility] [place] [address] [place] [address] 12/23/2020 00:00:00 12/24/2020 18:01:40 [id number] [facility] [place] [address] [place] [address] 01/31/2021 00:00:00 01/31/2021 16:12:08 [id number] [facility] [place] [address] [place] [address] 02/04/2021 00:00:00 02/04/2021 17:51:56 [id number] [facility] [place] [address] [place] [address] 03/11/2021 00:00:00 03/17/2021 11:02:33 [id number] [facility] [place] [address] [place] [address] 05/16/2021 00:00:00 05/16/2021 21:21:00 [id number] [facility] [place] [address] [place] [address] 06/29/2021 00:00:00 06/29/2021 17:45:47 [id number] [facility] [place] [address] [place] [address] 09/20/2021 00:00:00 10/17/2021 22:00:44 [id number] [facility] [place] [address] [place] [address] 11/07/2021 00:00:00 11/07/2021 11:55:54 [id number] [facility] [place] [address] [place] [address] 01/24/2022 00:00:00 01/24/2022 14:02:44 [id number] [facility] [place] [address] [place] [address] 02/08/2022 00:00:00 02/08/2022 10:54:47 [id number] [facility] [place] [address] [place] [address] 02/14/2022 00:00:00 02/14/2022 13:31:46 [id number] [facility] [place] [address] [place] [address] 03/24/2022 00:00:00 04/19/2022 10:57:04 [id number] [facility] [place] [address] [place] [address] 04/26/2022 00:00:00 04/26/2022 13:27:44 [id number] [facility] [place] [address] [place] [address] 06/13/2022 00:00:00 06/17/2022 13:40:46 [id number] [facility] [place] [address] [place] [address] 06/26/2022 00:00:00 06/26/2022 15:24:49 [id number] [facility] [place] [address] [place] [address] 08/11/2022 00:00:00 08/11/2022 11:37:30 [id number] [facility] [place] [address] [place] [address] 09/26/2022 00:00:00 10/17/2022 18:30:28 [id number] Fanny Carmichael [facility] [place] [address] [place] [address] 11/13/2022 15:20:47 11/14/2022 09:00:31 Atypical chest pain 755242552 R07.[address] with pleural plaquesChe ck CT chest Asbestos-i nduced pleural plaque 834028436 J92.[address] chestUncha nged as per recent CT chest 07/2022Thi s is the primary reason for his dyspnea as related to exposures Restrictiv e lung disease 18812496 J98.4 Due to asbestos exposure, pleural plaquesCom pliant use with NIV, set up 10/07/20On oxygen currently, good use and benefit Dependence on supplemental oxygen 1211088726 07 Z99.81 2 liters at all timesDiscu ssed the risks of hypoxia, including Dyspnea on exertion 6084 5006 R06.09 IGGs normalQFG negativeIn structed on 100% compliance with oxygenIncr ease activityWe ight lossNo previous benefit from inhaled therapy Chronic re spiratory failure 10833261 J96.10 ON NIVDownloa d reviewed today, good use and benefit [id number] [facility] [place] [address] [place] [address] 11/28/2022 10:12:03 11/28/2022 16:23:34 Asbestos-induced pleural plaque 536070981 J92.[address] chestUncha nged as per recent CT chest 07/2022Thi s is the primary reason for his dyspnea as related to exposuresR epeat CT chest 11/2022 with no changePlan to repeat yearly and PRN for changes Restrictiv e lung disease 51263183 J98.4 Due to asbestos exposure, pleural plaquesCom pliant use with NIV, set up 10/07/20On oxygen, he has called the DME to troublesho ot, as his POC will not hold a charge Dependence on supplemental oxygen 5012020748 07 Z99.81 2 liters at all timesDiscu ssed the risks of hypoxia, including Dyspnea on exertion 6084 5006 R06.09 IGGs normalQFG negativeIn structed on 100% compliance with oxygenIncr ease activityWe ight lossNo previous benefit from inhaled therapy Chronic re spiratory failure 58948317 J96.10 ON NIVDownloa d reviewed today, good use and benefit [id number] Fanny Carmichael, [employer]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-[facility] [place] [address] [place] [address] 05/16/2023 13:52:42 05/16/2023 15:24:33 Chronic respiratory failure 56419629 J96.10 ON NIVDownloa d reviewed today, good use and benefit Asbestos-i nduced pleural plaque 857823985 J92.[address] chestUncha nged as per recent CT chest 07/2022Thi s is the primary reason for his dyspnea as related to exposuresR epeat CT chest 11/2022 with no changePlan to repeat yearly due 11/2023 Restrictiv e lung disease 01144703 J98.4 Due to asbestos exposure, pleural plaquesCom pliant use with NIV, set up 10/07/20 Dependence on supplemental oxygen 5096889040 07 Z99.81 2 liters at all timesDiscu ssed the risks of hypoxia, including Dyspnea on exertion 6084 5006 R06.09 IGGs normalQFG negativeIn structed on 100% compliance with oxygenIncr ease activityWe ight lossNo previous benefit from inhaled therapy Chronic ob structive pulmonary disease 85044586 J44.9 Never a smoker - secondary to exposuresN o benefit from Anoro Ellipta one puff dailyHas tried other bronchodil ators with no benefit. He declines RXLast PFT 04/2020 with moderate obstructio n.[facility] - staff to requestInf luenza vaccine this fallHe is aware of reportable signs and symptomsHe should follow up in 6 months PRN for concerns Acute exac erbation of chronic obstructive pulmonary disease 861884798 J44.1 RX today for steroids and antibiotic s, discussed emergently reportable signs and symptoms [id number] QIANA Melchor [facility] [place] [address] [place] [address] 07/24/2023 11:24:01 07/24/2023 12:11:24 Coronary atherosclerosis 584556618 I25.10 stable. asymptomat ic. follows with cardiologi st. MORENO on stress testing. Chronic ob structive pulmonary disease 51030108 J44.9 stable. follows with pulmonary for regimen of treatment Uncontroll ed type 2 diabetes mellitus [id number] E11.65 poor control. poor diet. taking medication s. due for a1c. has not seen Endocrine recently. Benign ess ential hypertension [id number] I10 refill on coreg 12.5mg bid. Hypothyroidism [id number] E03.9 on supplement . due for thyroid lab panel Gastroesop hageal reflux disease without esophagitis [id number] K21.9 stable at this time. Mixed hyperlipidemia 267 182775 E78.2 on high dose crestor 40mg daily. due for fasting lipids Obstructiv e sleep apnea syndrome [id number] G47.33 on cpap. followed by Pulmonary for sleep med management . Insomnia 422001786 G47.0 0 still problemati c. Vitamin B1 2 deficiency (non anemic) 19408879 E53.8 due for b12. folate labs History of placement of stent for coronary artery disease [id number] Z95.5 hx noted Long-term drug therapy 388259379 Z79.899 Mixed anxi ety and depressive disorder 189636693 F41.8 refill on venlafaxin e ER 150mg daily. Health Concerns Section Related Observation LastModified by Organization Detai ls LastModified Time None Recorded Concern Status LastModified by Organization Details LastModified Time None Recorded Advance Directives Directive N: Payers Encounter Date Sequence Insurance Name Policy Number Policy Restrepo Covered Member ID Restrepo Member ID Guarantor Name 11/13/2022 1 [employer] (MEDICARE REPLACEMENT/A DVANTAGE - PPO) Navdeep Pierce [id number] Navdeep Pierce 11/28/2022 1 [employer] (MEDICARE REPLACEMENT/A DVANTAGE - PPO) Navdeep Pierce [id number] Navdeep Pierce 05/16/2023 1 [employer] (MEDICARE REPLACEMENT/A DVANTAGE - PPO) Navdeep Pierce [id number] Navdeep Pierce 07/24/2023 1 [employer] (MEDICARE REPLACEMENT/A DVANTAGE - PPO) Navdeep Pierce [id number] Navdeep Pierce Notes Date Note Type Note Provider Name and Address Organization Details Recorded Time 09/26/19 23 text/ht ml Anxiety/DepressionReported bypatient.Quality:doesnt matter time of day. Severity:denies suicidal ideations; able to maintain relationships; does not interfere with activities of daily living Duration:symptoms lasting over 2 weeks Onset/Timing:still present Context:no major life stressors Modifying Factors:medications as directed Associated Symptoms:denies homicidal ideations; no significant weight gain; no significant weight loss; no visual/auditory hallucinations; no delusions; no shortness of breath; mood good; no anxiety; no crying spells; no panic; no isolation; sleeping well; appetite good; energy good; no apathy; maintaining functionalityDiabetesReported bypatient.Duration:chronic Control:usually well controlled; treated with diet only Compliance:compliant with medications; compliant with follow-up visits; compliant with diet;noncompliant with home glucose monitoring Self Care:not monitoring home glucose Context:seeing eye doctor regularly; checking feet regularly;not taking aspirin daily Associated Symptoms:no weight gain; no weight loss; no dizziness; no headaches; no confusion; no increased thirst; no increased appetite; no increased urination; no blurred vision; no numbness of feet; no calluses on feet; no fatigue; no blurred vision; no paresthesias;sweats Chronic Complications:hypertension: Yes; hyperlipidemia: YesHyperlipidemiaReported bypatient.Duration:chronic Control:usually well controlled Current Therapy:currently taking: (rosuvastatin 40mg) Compliance:compliant; compliant with diet;does not exercise Complications:no coronary artery disease; no peripheral artery disease; no cardiovascular disease Risk Factors:diabetes;hypertension;ob esityHypertensionReported bypatient.Onset/Timing:better Self Care:not under emotional stress Associated Symptoms:no shortness of breath; no fatigue; no palpitations; no decline in exercise capacity; no snoringHypothyroidismReported bypatient.Quality:not changing Duration:constant Onset/Timing:still present Context/Risk:normal thyroid levels; no history of head or neck radiation during childhood; no history of thyroid disease; no history of hyperthyroidism; no excess iron exposure;history of hypothyroidism Modifying Factors:medication Exerciseno exercise Associated Symptoms:no cold intolerance; no heat intolerance; no weight loss; no weight gain; no double vision; no dry eyes; no hoarseness; no difficulty swallowing; no neck masses; no deepening of the voice; no fast heart rate; no increased blood pressure; no palpitations; no chest pain; no chest tightess or pressure; no constipation; no diarrhea; no vomiting; no decreased appetite; no loose stools; no irregular menstrual periods; no excessive sweating; no joint pain; no numbness; no tingling of the hands or feet; no dry skin; no tremor; no nervousness; no anxiety; no depression; no fatigue; no sleep difficulties; no skin changes; no hair changes Not Available [employer] 10/17/2022 18:30:28 11/14/19 23 text/ht ml Navdeep presents today to follow up on NIV, restrictive lung disease, dyspnea, cough, asbestos-induced pleural plaques, oxygen dependence, fatigue, pain to right chest and side wrapping around to his backContinues to have activity limitation and is unable to do most things without shortness of breath.He has been taking his cousin to treatments for stage 4 lung cancer - admits to increased anxiety about his own healthIn the past several months he has has developed right sided chest pain that is mostly persistent. Worse when laying down.He still does not want to get out of bed most days.Continues to have poor stamina and fatigues very easily.Uses his NIV for all sleep and occasionally while he is awakeHe is using oxygen more consistently but is still not 100% compliant with useActivity tolerance is improved with oxygenCompliant with 2 liter bleed in to NIVHe has good benefit and useDenies hemoptysis and unintentional weight loss.Unable to lay flat without dyspneaNo exacerbations in the last 16 months. Fanny Carmichael, ART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-BC [address] [facility], [facility] [address], [place], [address], [employer] 11/13/2022 20:36:48 11/29/19 23 text/ht ml Navdeep presents today to follow up on NIV, restrictive lung disease, dyspnea, cough, asbestos-induced pleural plaques, oxygen dependence, fatigueContinues to have activity limitation and is unable to do most things without shortness of breath.He still does not want to get out of bed most days.Continues to have poor stamina and fatigues very easily.Has been feeling better in the past several weeksUses his NIV for all sleep and occasionally while he is awakeActivity tolerance is improved with oxygenCompliant with 2 liter bleed in to NIVHe has good benefit and useHis POC battery will not charge, he has called the [employer] to trouble shootDenies hemoptysis and unintentional weight loss.Unable to lay flat without dyspneaNo exacerbations in the last 16 months. JIA Painter [address], [place], [address], [employer] [facility] [employer] 11/28/2022 13:40:55 05/16/20 23 text/ht ml Navdeep presents today to follow up on NIV, restrictive lung disease, dyspnea, cough, asbestos-induced pleural plaques, oxygen dependence, fatigueHis NIV has been re-approved by insurance, he has good use and clinical benefit.Continues to have activity limitation and is unable to do most things without shortness of breath.Continues to have poor stamina and fatigues very easily.GOing to the grocery store wears him out.Has been feeling poor in the past several weeksSinus pressure, congestion and increased dyspneaNo fever or chillsSocial changes, his daughter, grand-daughter and her new baby are living with them.Uses his NIV for all sleep and occasionally while he is awakeActivity tolerance is improved with oxygenHe does not use this with all activityCompliant with 2 liter bleed in to NIVHe has good benefit and useDenies hemoptysis and unintentional weight loss.Unable to lay flat without dyspneaNo exacerbations in the last 2 years JIA Painter [address], [place], [address], [employer] [facility] [employer] 05/16/2023 22:38:52 07/24/20 23 text/ht ml DiabetesReported bypatient.Duration:chronic Control:usually well controlled Compliance:compliant with medications; compliant with follow-up visits; compliant with diet; compliant with home glucose monitoring; had eye doctor visit in last year;noncompliant with home glucose monitoring;has not had dietitian visit in last year;does not wear a medic alert bracelet or necklace;does not keep rapid-acting carbohydrate in car Self Care:not monitoring home glucose Context:seeing eye doctor regularly; checking feet regularly;not taking aspirin daily Associated Symptoms:no weight gain; no weight loss; no headaches; no increased thirst; no increased appetite; no increased urination; no blurred vision; no numbness of feet; no calluses on feet; no coronary artery disease; no kidney disease; no peripheral vascular disease; no diabetic retinopathy; no diabetic neuropathy;dizziness;sweats;conf usionHyperlipidemiaReported bypatient.Duration:chronic Control:usually well controlled Compliance:compliant;noncomplian t with diet;does not exercise Complications:no coronary artery disease; no peripheral artery disease; no cardiovascular disease Risk Factors:diabetes;hypertensionHyp ertensionReported bypatient.Duration:has noted for years Onset/Timing:better Alleviating Factors:medication Associated Symptoms:no palpitations; no decline in exercise capacity; no snoring;shortness of breath;fatigueHypothyroidismRepo rted bypatient.Duration:constant Onset/Timing:still present Context/Risk:normal thyroid levels; no history of head or neck radiation during childhood; no history of thyroid disease; no history of hyperthyroidism; no excess iron exposure;history of hypothyroidism Modifying Factors:medication Exerciseno exercise Associated Symptoms:no cold intolerance; no heat intolerance; no weight loss; no weight gain; no double vision; no dry eyes; no hoarseness; no difficulty swallowing; no neck masses; no deepening of the voice; no fast heart rate; no increased blood pressure; no palpitations; no chest pain; no chest tightess or pressure; no constipation; no diarrhea; no vomiting; no decreased appetite; no loose stools; no irregular menstrual periods; no excessive sweating; no joint pain; no numbness; no tingling of the hands or feet; no dry skin; no tremor; no nervousness; no anxiety; no depression; no fatigue; no sleep difficulties; no skin changes; no hair changesReflux/GERDReported bypatient.Severity:same Duration:present 5 or more years Onset/Timing:gone now Context:non-smoker; no drug/alcohol abuse; no drug alcohol withdrawal; not related to food/drink Alleviating Factors:medication Associated Symptoms:no frequent coughing; no feeling of fullness/mass in throat; no hoarseness; no food getting stuck; no belching/burping; no vomiting; not vomiting blood; no regurgitation; no shortness of breath; no chest pain; no heartburn; no difficulty swallowing; no pain when swallowing; no bad taste; no decreased appetite; no weight loss; no black/tarry stools; no fatigue; no throat pain QIANA Melchor [address] [facility], [facility] [address], [place], [address], [facility] 08/15/2023 12:12:08
--- OUTSIDE RECORDS SUMMARY | 2024-10-29 08:58 | XMS_ITS | Patient Health Summary ---
Author Organization [facility] [employer] Address [address] [place] [address] Care Team Providers Care Frog Or Oyster Farmworker Name Role Phone Saida Grey Primary Care Pr ovider Note from [facility],non-owned Affiliates and Associated Physician Practices is amultiple site organization consisting of ambulatory clinics and hospital sitesin [place], [place], [place] and [place]. This disclosure is being madepursuant to the Care Everywhere program and may not contain all information available regarding this patient. Last updated 18.[facility] Allergies * Contrast-Iodinated Agents For Ct/Other(Itching) Medications * Be aware that medications may not be up to date on this document. Alwaysverify current medications with the patient. * lisinopril-hydrochlorothiazide (PRINZIDE; ZESTORETIC) 10-12.5 MG tablet Take 1 (one) tablet by mouth once daily * carvedilol (COREG) 25 MG tablet Take 1 (one) tablet by mouth 2 times daily with morning and evening meal * Docusate Sodium (DSS) 100 MG TAKE 1 CAPSULE BY MOUTH EVERY 12 HOURS TO PREVENT CONSTIPATION * indomethacin (Indocin) 50 MG capsule(Started 10/12/2022) TAKE 1 CAPSULE BY MOUTH THREE TIMES DAILY WITH MEALS NEEDED FOR GOUT FLARE * levothyroxine (Synthroid) 50 MCG tablet Take 1 (one) tablet by mouth once daily * metFORMIN ER 24hr (Glucophage XR) 500 MG tablet(Started 01/10/2023) TAKE 1 TABLET BY MOUTH EVERY DAY AT DINNER * nitroGLYCERIN (Nitrostat) 0.[address] 1 TABLET UNDER TONGUE EVERY 5 MINS, UP TO 3 DOSES NEEDED FOR CHEST PAIN * rosuvastatin (Crestor) 40 MG tablet(Started 01/04/2023) Take 1 (one) tablet by mouth once daily * tamsulosin (Flomax) 0.4 MG capsule(Started 01/14/2023) * venlafaxine XR 24hr (Effexor XR) 150 MG capsule Take 1 (one) capsule by mouth once daily * amLODIPine (Norvasc) 5 MG tablet(Started 10/25/2021) Take 0.5 (one-half) tablet by mouth once daily * allopurinol (Zyloprim) 100 MG tablet(Started 02/26/2023) Take 1 (one) tablet by mouth once daily * citalopram (CeleXA) 20 MG tablet Take 1 (one) tablet by mouth once daily * tobramycin-dexAMETHasone (TobraDex) 0.3-0.1 % ophthalmic suspension(Started 01/15/2024) Instill 1 (one) drop into both eyes 4 times daily * ketorolac (Toradol) 10 MG tablet(Started 01/15/2024) Take 1 (one) tablet by mouth every 6 hours as needed for Pain Active Problems Problem Noted Date Diagnosed Date COPD (chronic obstructive pulmonary disease) 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 02/28/2023 Coronary artery disease invo lving [place] coronary artery of [place] heart without angina pectoris 01/13/2020 02/28/2023 Asbestos exposure 12/11/2018 02/28/2023 Obesity (BMI 30-39.9) 07/15/2018 02/28/2023 Obstructive sleep apnea syndrome 03/13/2018 02/28/2023 Hypercholesterolemia 04/22/2008 02/28/2023 Social History Tobacco Use Types Packs/Day Years [...] Mass Index 34.46 01/15/2024 11:33 AM CDT Procedures * GLUCOSE - POINT OF CARE(Performed 01/15/2024) * ENDOTRACHEAL TUBE NOTE(Performed 01/15/2024) * ME STRABISMUS SURG,ONE HORIZ MUSCLE(Performed 01/15/2024) Performed for Monocular esotropia of left eye, Binocular vision disorder with diplopia * GLUCOSE - POINT OF CARE(Performed 01/15/2024) * BASIC METABOLIC PANEL (CALCIUM TOTAL)(Performed 01/04/2024) Performed for Pre-op exam * EKG 12-LEAD(Performed 01/04/2024) Performed for Pre-op exam * EYE EXAM(Performed 02/09/2023) * CT CHEST WO CONT AND HIRES(Performed 11/28/2018) Performed for Chronic obstructive pulmonary disease, unspecified COPD type (HCC), History of asbestos exposure * ESOPHAGEAL FUNCTION TEST(Performed 09/16/2015) Performed for Dysphagia, unspecified dysphagia * MOTILITY ESOPHAGEAL(Performed 09/16/2015) Performed for Dysphagia, unspecified dysphagia Results * (ABNORMAL) GLUCOSE - POINT OF CARE (01/15/2024 5:25 PM CDT) Only the most recent of2 resultswithin the time period is included. Glucose WB/POC 144(H) 70 - 115 mg/dL 01/15/2024 5:30 PM CDT [facility] Specimen Type Cap Fingerstick 2023 5:30 PM CDT [facility] Blood BLOOD SPECIMEN / Unknown 01/15/2024 5:25 PM CDT 01/15/2024 5:30 PM CDT Hardik Marroquin MD LAB - POINT OF CARE ORDERABLES [facility] [address] [place] [address], [facility] [phone] * ETT LINE PERFORMABLE (01/15/2024 3:00 PM CDT) Narrative Jeremy Gutierrez DO - 01/15/2024 3:00 PM CDT Jeremy Gutierrez DO 01/15/2024 3:01 PM Endotracheal Tube Placement: Patient Location: OR. Intubation Event Date/Time: 01/15/2024 2:44 PM Procedure: intubation ([id number]). Procedure Section: Sedation: under general anesthesia. Indications for Airway Management: anesthesia Procedure pretreatments used? No Induction: standard IV Patient Position: sniffing and supine Mask Ventilation: easy with oral airway. Blade Type: Video Blade Size: 4 Laryngoscopy View: grade 1 (full cords) Intubation Adjuncts: stylet and video laryngoscope Tube: endotracheal tube Placement: oral Tube type: cuff - inflated Tube Size (MM): 8 Depth of Insertion (CM): 24 Measured From: lips Cuff Inflated With: air Number of Attempts: 1. Placement Verified By: direct visualization, bilateral breath sounds, chest auscultation and CO2 monitor Tube secured with: adhesive tape. Dentition unchanged? Yes Difficult Airway? No. Procedure Start Time: 01/15/2024 2:44 PM. Staff Section Anesthesia Provider: Cecilio Bobby MD Provider #1: Jeremy Gutierrez DO, Performed the procedure. Cecilio Bobby MD GENERAL ANESTHESIA O RDERABLES * (ABNORMAL) BASIC METABOLIC PANEL (CALCIUM TOTAL) (01/04/2024 12:58 PM CDT) Pathologist [facility] BUN 9 7 - 26 mg/dL 01/04/2024 1:25 PM [facility] Creatinine 1.01 0.71 - 1.16 mg/dL 01/04/2024 1:25 PM [facility] Sodium 137 136 - 145 mmol/L 01/04/2024 1:25 PM [facility] Potassium 4.5 3.5 - 4.5 mmol/L 01/04/2024 1:25 PM [facility] Chloride 100 98 - 107 mmol/L 01/04/2024 1:25 PM [facility] CO2 28 22 - 29 mmol/L 01/04/2024 1:25 PM [facility] Glucose 121(H) 70 - 115 mg/dL 01/04/2024 1:25 PM [facility] Calcium 9.8 8.4 - 10.2 mg/dL 01/04/2024 1:25 PM [facility] Anion Gap 9 6 - 16 01/04/2024 1:25 PM [facility] BUN/Creatinine Ratio 9 7 - 23 01/04/2024 1:25 PM [facility] Osmolality Calculated 284 275 - 295 mOsm/kg 01/04/2024 1:25 PM [facility] eGFR by CKD-EPI 81(L) >=90 mL/min/1.7 3 m2 01/04/2024 1:25 PM [facility] Blood BLOOD SPECIMEN / Unknown Lab Venipuncture / Unknown 01/04/2024 12:58 PM CDT 01/04/2024 1:02 PM CDT Abeba Muñiz SERVICE ARCHITECT-ELECTRICIAN'S HELPER LAB - CHEMISTRY ORDERABLES [facility] [address] [place] [address], [facility] [phone] * EKG 12-LEAD (01/04/2024 12:15 PM CDT) Ventricular Rate 66 BPM [facility] M[facility] Atrial Rate 66 BPM [facility] P-R Interval 162 ms [facility] QRS Duration ms 68 ms [facility] Q-T Interval ms 380 ms [facility] QTC Calculation (Bezet) 398 ms [facility] Calculated R [place]ocker 124 degrees [facility] Calculated T [place] 130 degrees [facility] Interpretation EKG NORMAL SINUS RHYTHM RIGHT AXIS DEVIATION ABNORMAL ECG NO PREVIOUS ECGS AVAILABLE Confirmed by fellow APRIL SIDDIQUI MD ([id number]) on 01/17/2024 11:55:16 AM Confirmed by LISA TELLES MD ([id number]) on 01/18/2024 8:07:45 AM [facility] 01/04/2024 12:1 5 PM CDT 01/18/2024 8:07 AM CDT Abeba Muñiz SERVICE ARCHITECT-ELECTRICIAN'S HELPER ECG ORDERABLES [facility] * EYE EXAM (02/09/2023) Anatomical Region Laterality Modality Other Narrative 02/09/2023 Ordered by an unspecified provider. Scanned Document SCANNING ONLY * CT CHEST WO CONT AND HIRES (11/28/2018 2:27 PM CDT) Anatomical Region Laterality Modality Computed Tomogra phy 11/28/2018 4:07 PM CDT Impressions 11/30/2018 11:28 AM CDT IMPRESSION: 1. No CT evidence of interstitial lung disease. 2. Bilateral pleural thickening with calcifications, likely due to prior exposure. Dictated by Мария Meyers M.D. (financial institution vice president). I, Dr. MOHIT LEMUS M.D. have personally reviewed and interpreted this examination/study. This report was electronically signed by MOHIT LEMUS M.D. on 11/30/2018 11:28 AM . Narrative 11/30/2018 11:28 AM CDT EXAMINATION: Computed tomography (CT) of the chest without contrast HISTORY: CONCERN FOR interstitial lung disease COMPARISON: Outside chest CT dated 05/31/2018 TECHNIQUE: CT of the chest was performed without contrast according to standard protocol. Then, utilizing a high-resolution algorithm, 1 mm noncontiguous axial images of the chest were obtained in inspiration and expiration. FINDINGS: There is a left-sided three-vessel aortic arch. The aorta and main pulmonary artery are normal in course and caliber. Focal atelectasis is seen in the lingula (series 4 image 51). There is bilateral pleural thickening, thickest in the right middle lobe with thickened to 1.6 cm (series 4 image 46), similar to prior exam. There is some calcification of the pleural plaques bilaterally. There is no evidence of pneumothorax. No suspicious pulmonary nodule is identified. The trachea is patent and midline. No bronchial wall thickening or bronchiectasis is seen. There is no evidence of reticulation or groundglass opacities. No architectural distortion or honeycombing is visible. The heart size is normal. No pericardial effusion is present. No mediastinal, supraclavicular, or axillary lymphadenopathy is seen. The visible portions of the abdomen are normal. Bone windows demonstrate no suspicious lytic or blastic lesions. Old right-sided rib fractures are identified.. Procedure Note Adrienne Lemus MD - 11/30/2018 EXAMINATION: Computed tomography (CT) of the chest without contrast HISTORY: CONCERN FOR interstitial lung disease COMPARISON: Outside chest CT dated 05/31/2018 TECHNIQUE: CT of the chest was performed without contrast according to standard protocol. Then, utilizing a high-resolution algorithm, 1 mm noncontiguous axial images of the chest were obtained in inspiration and expiration. FINDINGS: There is a left-sided three-vessel aortic arch. The aorta and main pulmonary artery are normal in course and caliber. Focal atelectasis is seen in the lingula (series 4 image 51). There is bilateral pleural thickening, thickest in the right middle lobe with thickened to 1.6 cm (series 4 image 46), similar to prior exam. There is some calcification of the pleural plaques bilaterally. There is no evidence of pneumothorax. No suspicious pulmonary nodule is identified. The trachea is patent and midline. No bronchial wall thickening or bronchiectasis is seen. There is no evidence of reticulation or groundglass opacities. No architectural distortion or honeycombing is visible. The heart size is normal. No pericardial effusion is present. No mediastinal, supraclavicular, or axillary lymphadenopathy is seen. The visible portions of the abdomen are normal. Bone windows demonstrate no suspicious lytic or blastic lesions. Old right-sided rib fractures are identified.. IMPRESSION: 1. No CT evidence of interstitial lung disease. 2. Bilateral pleural thickening with calcifications, likely due to prior exposure. Dictated by Мария Meyers M.D. (financial institution vice president). I, Dr. MOHIT LEMUS M.D. have personally reviewed and interpretedthis examination/study. This report was electronically signed by MOHIT LEMUS M.D. on 11/30/2018 11:28 AM . An Fara Olivarez MD CT ORDERABLES Care Teams [employer] Farmworker Relationship Specialty Start Date End Date Saida Grey PA [address] [place] [address] PCP - General Physician Vegetable Worker 06/13/23
--- OUTSIDE RECORDS SUMMARY | 2024-10-29 08:58 | XMS_ITS | Encounter Summary ---
Author Organization [facility] Address [address] [place] [address] Care Team Providers Care Net Making Supervisor Name Role Phone Saida Grey Primary Care Pr ovider Encounter Details Date Type Department Care Team (Late st Contact Info) Description 05/30/2023 Telephone [facility] - Ophthalmology [address] [place] [phone] Hardik Marroquin MD [address] [place] [address] Social History Tobacco Use Types Packs/Day Years Used Date Smoking Tobacco: Never Smokeless Tobacco: Never Alcohol Use Standard Drinks/Week Comments No 0 (1 standard drink = 0.6 oz pur e alcohol) Sex and Gender Information Value Date Recorded Sex Assigned at Not on file Gender Identity Not on file Sexual Orientation Not on file documented as of this encounter Functional Status Functional Status Response Date of Assess ment Is person deaf or have serious hearing difficult y? No 09/16/2015 Is person blind or have serious difficulty seein g? No 09/16/2015 Does person have serious dif ficulty walking/climbing stairs? No 09/16/2015 Does person have difficulty dressing/bathing? No 09/16/2015 Does person have difficulty doing errands alone? No 09/16/2015 Cognitive Status Response Date of Assessm ent Does person have difficulty concentrating/remembering/making decisions? No 09/16/2015 documented as of this encounter Miscellaneous Notes * Telephone Encounter - Christa Hanson - 05/30/2023 9:09 AM CDT Patient's called stating the patient is ready to move forward with scheduling for surgery. documented in this encounter Plan of Treatment Not on file documented as of this encounter Visit Diagnoses Not on filedocumented in this encounter Care Teams Net Making Supervisor Relationship Specialty Start Date End Date Saida Grey PA [address] [place] [id number] PCP - General Physician Reproducer 06/13/23 documented as of this encounter
--- OUTSIDE RECORDS SUMMARY | 2024-10-29 08:58 | XMS_ITS | Encounter Summary ---
Author Organization [facility] Care Team Providers Care Fashion Styling Intern Name Role Phone Adria Padron MD Primary Care Provider +1- [phone] Saida Rubio Primary Care Pr ovider Shawn Roth MD Unavailable Encounter Details Date Type Department Care Team (Latest Contact Info) Description 02/22/2017 Orders Only [facility] CLINCONV ProviderBrian MD [address] [place] [id number] Social History Tobacco Use Types Packs/Day Years Used Date Smoking Tobacco: Never Alcohol Use Standard Drinks/Week Comments No 0 (1 standard drink = 0.6 oz pur e alcohol) Sex and Gender Information Value Date Recorded Sex Assigned at Not on file Legal Sex Male 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 Historical Provider Final Res ult documented in this encounter Visit Diagnoses Not on filedocumented in this encounter Care Teams Fashion Styling Intern Relationship Specialty Start Date End Date Adria Padron MD [address] [place] [address] PCP - General 06/08/16 07/26/17 Saida Rubio PA [address] [place] [address] PCP - General 07/27/17 Shawn Roth MD [address] [address] Consulting Physician Cardiology 12/14/18 documented as of this encounter
--- OUTSIDE RECORDS SUMMARY | 2024-10-29 08:58 | XMS_ITS | Referral Summary ---
Author Organization [facility] Address [address] [place] [address] Care Team Providers Care Outgoing Inspector Name Role Phone Saida Grey Primary Care Pr ovider Source Comments [facility],non-owned Affiliates and Associated Physician Practices is amultiple site organization consisting of ambulatory clinics and hospital sitesin [place], [place], [place] and [place]. This disclosure is being madepursuant to the Care Everywhere program and may not contain all information available regarding this patient. Last updated 18.[facility] Allergies Active Allergy Reactions Criticality Noted Date [...] 01/10/2023 02/28/2023 Coronary artery disease invo lving wainwright coronary artery of wainwright heart without angina pectoris 01/13/2020 02/28/2023 Asbestos [...] Mass Index 34.46 01/15/2024 11:33 AM CDT Functional Status Functional Status Response Date of Assess ment Is person deaf or have serious hearing difficult y? No 01/15/2024 Is person blind or have serious difficulty seein g? No 01/15/2024 Does person have serious dif ficulty walking/climbing stairs? No 01/15/2024 Does person have difficulty dressing/bathing? No 01/15/2024 Does person have difficulty doing errands alone? No 01/15/2024 Cognitive Status Response Date of Assessm ent Does person have difficulty concentrating/remembering/making decisions? No 01/15/2024 Plan of Treatment Not on file Procedures Procedure Name Priority Date/Time Associated Diagnosis Comments GLUCOSE - POINT OF CARE Routine 01/15/2024 12:24 PM CDT from Last 3 Months or Most Recently Relevant to Health Maintenance Results * (ABNORMAL) GLUCOSE - POINT OF CARE (01/15/2024 12:24 PM CDT) Glucose WB/POC 149(H) 70 - 115 mg/dL 01/15/2024 12:25 PM CDT [facility] Specimen Type Venous 01/15/2024 12:25 PM CDT [facility] Blood BLOOD SPECIMEN / Unknown 01/15/2024 12:24 PM CDT 01/15/2024 12:25 PM CDT Hardik Marroquin MD LAB - POINT OF CARE ORDERABLES [facility] [address] [place] [address], [facility] [phone] from Last 3 Months or Most Recently Relevant to Health Maintenance Care Teams Outgoing Inspector Relationship Specialty Start Date End Date Saida Grey PA [address] [place] [address] PCP - General Physician Manager Health 06/13/23
[2024-10-29 09:17] LABS: Estimated Glomerular Filt Rate 60
== END 2024-10-29 08:34 | disposition home or self-care (01) ==
PROVIDERS: PCP Physician Assistant; Visit Provider Urology
DX: C67.0 Malignant neoplasm of trigone of bladder (principal)
CPT/HCPCS: 74178; Q9967

== ENCOUNTER 2025-02-08 11:07 | Emergency (ER) | payer MEDICARE, SELFPAY ==
--- NOTE | 2025-02-08 11:08 | ED.SKABFB ---
HPI - Skin/Abscess/Foreign Bdy General Chief complaint: Skin/Abscess/Foreign Body Stated complaint: Headache, Nose,Lip Pain/Swelling Time Seen by Provider: 02/08/25 11:07 Source: patient Mode of arrival: ambulatory Limitations: no limitations History of Present Illness HPI narrative: Navdeep is a 69-year-old male patient presenting to the clinic today with complaints of headache, infection in his nose as causing lip pain and swelling. He reports on the right nare is red, swollen, and tender to palpation. He is having difficulty wearing his oxygen at night and has not been sleeping well over the past 3 nights. States he has a headache at this time due to decrease sleep. Denies any fevers, chills, or body aches. Has had this issue in the past and was prescribed antibiotics and nasal cream. Lip swelling has improved today. He does take lisinopril. He denies any tongue swelling, drooling, or difficulty swallowing. Related Data Home Medications ?Medication ?Instructions ?Recorded ?Confirmed ?Last Taken ?Type citalopram 20 mg tablet 20 mg PO DAILY 10/07/19 03/10/22 Unknown History clopidogrel 75 mg tablet 75 mg PO DAILY 10/07/19 03/10/22 Unknown History levothyroxine 50 mcg tablet 50 mcg PO DAILY 10/07/19 03/10/22 Unknown History lisinopril 10 1 tablet PO BID 10/07/19 03/10/22 Unknown History mg-hydrochlorothiazide 12.5 mg tablet allopurinol 100 mg tablet 100 mg PO DAILY 03/10/22 03/10/22 Unknown History amlodipine 5 mg tablet 5 mg PO DAILY 03/10/22 03/10/22 Unknown History hydroxyzine pamoate 25 mg capsule 25 mg PO HS PRN Sleep 03/10/22 03/10/22 Unknown History indomethacin 50 mg capsule 50 mg PO TID PRN Pain 03/10/22 03/10/22 Unknown History rosuvastatin 40 mg tablet 40 mg PO DAILY 03/10/22 03/10/22 Unknown History venlafaxine 150 mg 150 mg PO DAILY 03/10/22 03/10/22 Unknown History capsule,extended release 24 hr metformin 500 mg tablet 500 mg 09/28/24 Unknown History tamsulosin 0.4 mg capsule 0.4 mg PO 09/28/24 Unknown History mupirocin 2 % topical ointment topical 02/08/25 Unknown History Allergies Allergy/AdvReac Type Severity Reaction Status Date / Time metoclopramide Allergy Mild N/V, Verified 09/28/24 10:20 ITHCING, RASH propoxyphene Allergy Mild N/V, Verified 09/28/24 10:20 ITCHING, RASH vancomycin Allergy Mild N/V, Verified 09/28/24 10:20 ITCHING, RASH codeine Allergy Unknown NAUSEA Verified 09/28/24 10:20 Contrast Media Allergy Mild VOMITING, Uncoded 06/03/15 10:49 RASH PMFSH Past Medical History Medical History Coronary artery disease Hypothyroidism, unspecified Essential (primary) hypertension Anxiety Family History Family History Mother Family history of malignant neoplasm Chronic obstructive pulmonary disease Hypertension Sibling Family history of coronary artery disease Hypertension Father Family history of coronary artery disease Hypertension Social History Social History Smoking status: Never smoker Alcohol intake: never Substance use: never Spiritual care concerns: No Comments At the time of my signature, I reviewed and agree with the nursing past medical, surgical, social, and family history. There is no relevant family history pertinent to the patient complaint. Exam Narrative: General: Well-developed, well nourished, in no apparent distress Head: Normocephalic, atraumatic Eyes: Pupils equally round and reactive to light bilaterally, EOM intact, sclera and conjunctive clear, no discharge, lids normal Ears: TMs intact and clear, ear canals clear, no drainage, grossly hearing normal. Nose: Nares patent, no discharge, mild inflammation, no sinus tenderness. Red, tender, swelling, mild erythema external right nare with localized swelling, no palpable abscess or visualized pustule Mouth: Oropharynx without lesions or masses, good dentition, MMM. Neck: Supple, trachea midline, no enlargement of anterior or posterior cervical nodes, no thyroid masses or goiter palpable. Cardio: Regular rate and rhythm, s1 and s2 normal, no murmur appreciated. Resp: Clear to auscultation bilaterally anteriorly and posteriorly, no rhonchi, rales, wheezing or rubs Course Course Emergency Course: Portions of this record may have been created with voice recognition software. Level of Care: Express Care Visit Vital Signs Vital signs: Vital Signs Temperature 36.6 C 02/08/25 11:15 Pulse Rate 73 02/08/25 11:15 Respiratory Rate 16 02/08/25 11:15 Blood Pressure 137/74 02/08/25 11:15 Pulse Oximetry 99 02/08/25 11:15 Oxygen Delivery Room Air 02/08/25 11:15 Temperature 36.6 C 02/08/25 11:15 Pulse Rate 73 02/08/25 11:15 Respiratory Rate 16 02/08/25 11:15 Blood Pressure 137/74 02/08/25 11:15 Pulse Oximetry 99 02/08/25 11:15 Oxygen Delivery Room Air 02/08/25 11:15 Vital signs reviewed MDM - Skin/Abscess/Foreign Bdy MDM Narrative Medical decision making narrative: At the time of visit patient is resting comfortably on the exam table. Patient appears to be nontoxic. Plan: I suspect patient has a skin infection to the right nare. Recommend continuing use of mupirocin cream and will place him on cephalexin. Supportive measures were discussed with the patient and they voiced understanding discharge instructions and agrees to treatment plan. Return precautions reviewed Differential Diagnosis Differential diagnosis: Likely abscess of skin or subcutaneous tissue, viral exanthem, dermatophytosis, urticaria, herpes zoster, allergic reaction to drug, cellulitis, eczema, insect bites, impetigo, contact dermatitis and other (Bacterial skin infection) Discharge Plan Discharge Clinical Impression: Infection of nose Patient Disposition: Home Condition: Stable Instructions: Antibiotic Form, Cellulitis (ED) Additional Instructions: Continue use of mupirocin cream Take cephalexin as prescribed May apply cool compress over the area to help alleviate swelling Increase fluids and stay well hydrated Follow-up with your primary care doctor in 3 days Patient Language: Kittitian Prescriptions: New cephalexin 500 mg tablet 500 mg PO Q8H 7 Days Qty: 21 0RF No Action metformin 500 mg tablet 500 mg tamsulosin 0.4 mg capsule 0.4 mg PO mupirocin 2 % ointment TOPICAL clopidogrel 75 mg Tablet 75 mg PO DAILY citalopram 20 mg Tablet 20 mg PO DAILY levothyroxine 50 mcg Tablet 50 mcg PO DAILY lisinopril-hydrochlorothiazide 10-12.5 mg Tablet 1 tablet PO BID venlafaxine 150 mg capsule,extended release 24hr 150 mg PO DAILY amlodipine 5 mg Tablet 5 mg PO DAILY allopurinol 100 mg Tablet 100 mg PO DAILY indomethacin 50 mg Capsule 50 mg PO TID PRN (Reason: Pain) Rx Instructions: administer with food or milk hydroxyzine pamoate 25 mg capsule 25 mg PO HS PRN (Reason: Sleep) Rx Instructions: pt takes 1-2 per night. increases dose to 2 if more restless rosuvastatin 40 mg Tablet 40 mg PO DAILY carvedilol 25 mg Tablet 12.5 mg PO BID Qty: 14 0RF Rx Instructions: Follow directions on discharge instructions for dose adjustment. Follow-up/Referrals: Ramiro,NOE Cintron [Primary Care Provider] - Time of Disposition: 11:28 Quality NIHSS Nursing Documentation ED NIHSS nursing documentation: reviewed/agree
[2025-02-08 11:15] VITALS: BP 137/74; PULSE 73; RESP 16; TEMP 36.6; O2SAT 99
== END 2025-02-08 11:37 | disposition home or self-care (01) ==
PROVIDERS: Emergency Provider Nurse Practitioner Family; PCP Physician Assistant
DX: L08.9 Local infection of the skin and subcutaneous tissue, unspecified (principal); I25.10 Atherosclerotic heart disease of native coronary artery without angina pectoris; E03.9 Hypothyroidism, unspecified; I10 Essential (primary) hypertension
CPT/HCPCS: 99213; G0463

== ENCOUNTER 2025-04-14 05:04 | Emergency (ER) | payer MEDICARE, SELFPAY ==
--- OUTSIDE RECORDS SUMMARY | 2024-04-22 13:51 | XMS_ITS | Continuity of Care Document ---
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 Location Location Details Encounter Type Encounter Number Reason For Visit Attending Provider ADM Date DC Date Status Disposition Source [facility] Outpatient Encounter [id number] 04/22 [facility] M[facility]INDER N
[2025-04-14] VITALS (10 sets, daily range): BP systolic 142–166; BP diastolic 69–81; PULSE 84–93; RESP 15–25; TEMP 36.6; O2SAT 98–100
--- NOTE | ~2025-04-14 | CT_ITS ---
EXAMINATION: CT cervical spine wo con DATE: 04/14/2025 05:50 INDICATION: Status post fall. Neck pain. TECHNIQUE: Computed tomography (CT) of the cervical spine was performed without intravenous contrast. The dose-length product was 576 mGy-cm. Automated exposure control and iterative reconstruction technique were employed. COMPARISON: None FINDINGS: Normal cervical alignment. Craniovertebral junction is normal. Odontoid process is normal. There is mild multilevel cervical spondylosis characterized by disc narrowing, mild endplate degenerative change and mild multilevel uncinate and facet hypertrophy. Mild levocurvature of the cervical sp ine. Lung apices are normal. No significant paraspinal soft tissue abnormality. IMPRESSION: 1. No acute abnormality of the cervical spine. Reviewed, dictated and finalized at location O.
--- NOTE | ~2025-04-14 | CT_ITS ---
EXAMINATION: CT brain wo con DATE: 04/14/2025 05:49 INDICATION: Fall. Trauma TECHNIQUE: Computed tomography (CT) of the abdomen and pelvis was performed without intravenous contrast. The dose-length product was 681.00 mGy-cm. COMPARISON: None. FINDINGS: No acute intracranial hemorrhage. No mass effect. No midline shift. No hydrocephalus. There are several low density regions scattered throughout the periventricular and deep white matter which are favored to represent chronic ischemic white matter change. No skull fracture. Visualized mastoid air cells are clear. Partial opacification of the paranasal sinuses. IMPRESSION: 1. No acute intracranial hemorrhage. No mass effect. 2. Probable chronic ischemic white matter change. Reviewed, dictated and finalized at location Q.
--- OUTSIDE RECORDS SUMMARY | 2025-04-14 05:07 | XMS_ITS ---
Author Organization [facility] Address [address] [place] [address] Care Team Providers Care Chain Maker Name Role Phone Saida Rubio Primary Care Pr ovider Shawn Roth MD Unavailable Active Problems Problem Noted Date Diagnosed Date Severe obesity 11/24/2024 Diastasis recti 07/31/2024 Assessment & Plan (07/31/2024 9:15 AM UNDERWEAR FINISHER): We have discussed the upper midline bulge [...] 07/31/2024 Assessment & Plan (07/31/2024 9:16 AM UNDERWEAR FINISHER): I have discussed given the very small [...] home O2 therapy 06/18/2024 Assessment & Plan (12/16/2024 3:12 PM CDT): Continue noninvasive ventilator with all sleep and during the day as needed He recently had his machine replaced and I will need a 90 day download from the company He is aware of supply cleaning and reordering Continue supplemental oxygen for saturations 90% or greater He is aware of the risks of hypoxia Assessment & Plan (06/18/2024 3:32 PM CDT): Continue noninvasive ventilator with all sleep and during the day as needed Continue supplemental oxygen for saturations 90% or greater Pleural plaque due to asbestos exposure 06/18/20 Assessment & Plan (12/16/2024 3:13 PM CDT): These have remained stable over the years He is due for repeat CT chest in August of 2025 Assessment & Plan (06/18/2024 3:33 PM CDT): These have been stable on imaging and are likely contributing to some part of his restriction Leukocytosis 04/08/2021 Coronary artery disease of n ative artery of campo heart with stable angina pectoris 01/13/2020 Asbestos exposure 12/11/2018 Chest pain 12/10/2018 Overview (12/11/2018): Added automatically from request for surgery [id number] Obesity (BMI 30-39.9) 07/15/2018 Pulsatile tinnitus 01/14/2018 Malignant neoplasm of posterior wall of bladder 08/30/2017 Malignant neoplasm of posterior wall of urinary bladder 08/30/2017 Borderline high serum cholesterol 06/29/2017 Chronic thyroiditis 06/29/2017 Neoplasm of bladder 06/29/2017 COPD exacerbation 02/23/2017 Assessment & Plan (12/16/2024 3:14 PM CDT): Start steroids and antibiotics [id number] decongestants, saline nasal rinses, rest, and good fluid intake He is aware of signs and symptoms that will require urgent evaluation Centrilobular emphysema 11/27/2016 Presence of stent in [...] 1-antitrypsin PiMS phenotype 05/29/2016 Assessment & Plan (12/16/2024 3:13 PM CDT): His last level was 139 I will plan to repeat levels yearly with changes in condition Assessment & Plan (06/18/2024 3:34 PM CDT): [...] Automatic Entry Manual Entr y Fluoro Time 14.4 minutes 1.6 minutes 12.8 minutes Air kerma at the reference point [...] 01/13/2020 Overview (11/23/2016): Coronary artery disease of campo artery of campo heart with stable angina pectoris
--- OUTSIDE RECORDS SUMMARY | 2025-04-14 05:07 | XMS_ITS | Encounter Summary ---
Author Organization [facility] Facility Care Team Providers Care Records Tech Name Role Phone Adria Padron MD Primary Care Provider +1- [phone] Saida Rubio Primary Care Pr ovider Shawn Roth MD Unavailable Encounter Details Date Type Department Care Team (Latest Contact Info) Description 02/22/2017 Orders Only [facility] CLINCONV ProviderBrian MD [address] [place] [address] Social History Tobacco Use Types Packs/Day Years Used Date Smoking Tobacco: Never Alcohol Use Standard Drinks/Week Comments No 0 (1 standard drink = 0.6 oz pur e alcohol) Sex and Gender Information Value Date Recorded Sex Assigned at Not on file Legal Sex Male 2:10 PM TUBE WRAPPER Gender Identity Not on file Sexual Orientation [...] on filedocumented in this encounter Care Teams Records Tech Relationship Specialty Start Date End Date Adria Padron MD [address] [place] [address] PCP - General 06/08/16 07/26/17 Saida Rubio PA [address] [place] [address] PCP - General 07/27/17 Shawn Roth MD [address] [facility] [address] [place] [address] Consulting Physician Cardiology 12/14/18 documented as of this encounter
--- OUTSIDE RECORDS SUMMARY | 2025-04-14 05:07 | XMS_ITS | Encounter Summary ---
Author Organization [facility] Facility Care Team Providers Care Food Tester Name Role Phone Adria Padron MD Primary Care Provider +1- [phone] Adria Padron MD Primary Care Provider +1- [phone] Saida Rubio Primary Care Pr ovider Shawn Roth MD Unavailable Encounter Details Date Type Department Care Team (Latest Contact Info) Description 05/20/2014 Orders Only [facility] CLINCONV ProviderBrian MD [address] [place] [address] Social History Tobacco Use Types Packs/Day Years Used Date Smoking Tobacco: Never Assessed Sex and Gender Information Value Date Recorded Sex Assigned at Not on file Legal Sex Male 2:10 PM E LEARNING COORDINATOR Gender Identity Not on file Sexual Orientation [...] on filedocumented in this encounter Care Teams Food Tester Relationship Specialty Start Date End Date Adria Padron MD [address] [place] [address] PCP - General 06/08/16 07/26/17 Adria Padron MD [address] [place] [address] PCP - General 06/01/16 06/07/16 Saida Rubio PA [address] [place] [address] PCP - General 07/27/17 Shawn Roth MD [address] [place] [address] Consulting Physician Cardiology 12/14/18 documented as of this encounter
--- OUTSIDE RECORDS SUMMARY | 2025-04-14 05:07 | XMS_ITS | Clinical Summary ---
Author Organization [facility] Address [address] [place] [address] Care Team Providers Care Mill Representative Name Role Phone Saida Rubio Primary Care Pr ovider Shawn Roth MD Unavailable Allergies Active Allergy Reactions Criticality Noted Date Comments Codeine Unknown High 07/02/2023 Iodinated Contrast Media Hives,Itching,Rash High Metoclopramide Unknown High 07/02/2023 Propoxyphene-Acetaminophen Unknown High 3 Unclassified Drug Unknown 04/01/2019 Vancomycin Unknown High 07/02/2023 Medications levothyroxine (SYNTHROID, LEVOTHROID) 50 mcg tablet take 1 tablet by oral route every day 0 0 6 Active allopurinol (ZYLOPRIM) 100 mg tablet Take 1 tablet (100 mg total) by mouth 2 (two) times a day 8 Active sodium chloride 0.9 % solution for nebulization with albuterol 5 mg/mL solution for nebulization 0.6 mg/mL every 6 (six) hours Active lisinopril-hydroCHL OROthiazide (PRINZIDE,ZESTORETI C) 10-12.5 mg per tablet 9 Active albuterol (PROVENTIL,VENTOLIN ) 2.5 mg /3 mL (0.083 %) nebulizer solution Inhale 3 mL (2.5 mg total) Active nitroglycerin (NITROSTAT) 0.[address] 1 tablet (0.4 mg total) under the tongue every 5 (five) minutes as needed for chest pain May repeat dose q 5 min, up to 3 doses total 25 tablet 11 0 Active carvediloL (COREG) 25 mg tablet Take 1 tablet (25 mg total) by mouth 2 (two) times a day 0 Active rosuvastatin (CRESTOR) 40 mg tabletIndications:C oronary artery disease of council artery of council heart with stable angina pectoris,Mixed hyperlipidemia Take 1 tablet (40 mg total) by mouth daily 90 tablet 3 0 Active indomethacin (INDOCIN) 50 mg capsule Take 1 capsule (50 mg total) by mouth 3 (three) times a day with meals Active venlafaxine XR (EFFEXOR-XR) 150 mg 24 hr capsule Take 1 capsule (150 mg total) by mouth daily Active cyanocobalamin (Vitamin B-12) 1,000 mcg/mL injection Active aspirin 81 mg chewable tablet Take 1 tablet (81 mg total) by mouth daily 100 tablet 2 Active tamsulosin (FLOMAX) 0.4 mg extended release capsuleIndications: Benign prostatic hyperplasia with lower urinary tract symptoms, symptom details unspecified Take 1 capsule (0.4 mg total) by mouth daily 30 capsule 11 3 Active ketorolac (ACULAR) 0.5 % ophthalmic solution 4 Active metFORMIN (GLUCOPHAGE) 500 mg tablet Take 1 tablet (500 mg total) by mouth daily 4 Active predniSONE (DELTASONE) 50 mg tabletIndications:C T prep 50 mg to be taken orally 13 hours, 7 hours, and 1 hour prior to exam 3 tablet 4 Active diphenhydrAMINE (BENADRYL) 50 mg capsuleIndications: CT prep 50 mg orally [address] 1 capsule 4 Active amLODIPine (NORVASC) 10 mg tablet Take 1 tablet (10 mg total) by mouth daily 30 tablet 11 5 03/02/20 26 Active Active Problems Problem Noted Date Diagnosed Date Severe obesity 11/24/2024 Diastasis recti 07/31/2024 Assessment & Plan (07/31/2024 9:15 AM FORMER HAND): We have discussed the upper midline bulge [...] 07/31/2024 Assessment & Plan (07/31/2024 9:16 AM FORMER HAND): I have discussed given the very small [...] need a 90 day download from the [employer] He is aware of supply cleaning and [...] artery disease of n ative artery of council heart with stable angina pectoris 01/13/2020 Asbestos exposure 12/11/2018 Chest pain 12/10/2018 Overview (12/11/2018): Added automatically from request for surgery [id number] Obesity (BMI 30-39.9) 07/15/2018 Pulsatile tinnitus 01/14/2018 Malignant neoplasm of posterior wall of bladder 08/30/2017 Malignant neoplasm of posterior wall of urinary bladder 08/30/2017 Borderline high serum cholesterol 06/29/2017 Chronic thyroiditis 06/29/2017 Neoplasm of bladder 06/29/2017 COPD exacerbation 02/23/2017 Assessment & Plan (12/16/2024 3:14 PM CDT): Start steroids and antibiotics [id number] decongestants, saline nasal rinses, rest, and good [...] 05/29/2016 Personal history of malignant neoplasm of blata[place]ann[place] r 05/29/2016 Shortness of breath 05/29/2016 Toxic [...] 01/13/2020 Overview (11/23/2016): Coronary artery disease of council artery of council heart with stable angina pectoris Encounters Date Type Department Care Team Description 03/02/2025 8:45 AM CDT Office Visit [facility] Cardiology [address] [place] [address] Ruddy Montague MD Coronary artery disease of council artery of council heart with stable angina pectoris (Primary Dx); Mixed hyperlipidemia; Essential hypertension; Presence of stent in coronary artery from Last 3 Months Immunizations Immunization Administration Dates Next Due Pfizer SARS-CoV-2 Monovalent Vaccination (12+ Yrs) PURPLE 11/04/2020,10/17/2020 Surgical History Surgery Date Site/Laterality Comments SINUS SURGERY Sinus Surgery - (Added by TW Conv) BACK SURGERY Back Surgery - (Added by TW Conv) KNEE SURGERY Knee Surgery - (Added by TW Conv) SHOULDER SURGERY Shoulder Surgery - (Added by TW Conv) [place] UNLISTED PROCEDURE ABDOME N PERITONEUM & OMENTUM Hernia Repair - (Added by TW Conv) BLADDER SURGERY CATARACT EXTRACTION, BILATERAL Medical History Medical History Date Comments Hx Other Medical Some type of ge netic prob causing lung dz, Dr. Mcbride; Comments: [facility] 06/01/2016 - Hx Other Medical TKR; Comments: [...] on file Legal Sex Male 2:10 PM FORMER HAND Gender Identity Not on file Sexual Orientation Not on file Obstetrics History Last Filed Vital Signs Vital Sign Reading Time Taken Comments Blood Pressure 138/62 03/02/2025 8:21 AM CDT Pulse 79 03/02/2025 8:21 AM CDT Temperature 36.8 C (98.2 F) 12/16/2024 1:04 PM CDT Respiratory Rate 16 03/02/2025 8:21 AM CDT Oxygen Saturation 98% 03/02/2025 8:21 AM CDT Inhaled Oxygen Concentration - - Weight 116.1 kg (256 lb) 03/02/2025 8:21 AM CDT Height 182.9 cm (6') 03/02/2025 8:21 AM CDT Body Mass Index 34.72 03/02/2025 8:21 AM CDT Plan of Treatment Health Maintenance [...] 2024 07/18/2021, 11/04/2020, 10/17/2020 Influenza Vaccine (#1) 2025 9, 10/05/2017, 10/05/2017 Medical Devices Implanted Type Area Business Analyst Consultant Device Identifier Shelf Expiration Date Model / Serial / Lot [employer] [id number] Synergy 2.25mm 24mm 144cm Radiopaque 1 Access Port Inflation - [id number] Implanted:Qty: 1 on 12/13/2018 by Shawn Roth MD at [facility] [employer] Petra 09/22/2020 [id number] / / [id number] [employer]ig [employer] [id number] Angio-Seal Vip Bondek-Plus 6fr .035in 70cm Hemostatic Latex Free - [id number] Implanted:Qty: 1 on 12/13/2018 [facility] [employer] 08/19/2019 [id number] / / [id number] Insurance HUMANA CHOICE MEDICARE PPO HUMAN MEDICARE HMO HUMANA CHOICE MEDICARE PPO HUMANA CHOICE MEDICARE PPO HUMANA CHOICE MEDICARE PPO Advance Directives For more information, please contact: [phone] * Full Code (Latest Code Status on File) Date Activated Date Inactivated Comments 12/10/2018 9:13 PM 12/14/2018 9:26 PM Healthcare Agents on File Name Relationship Healthcare Agent [facility] Communication Fransisca Pierce Spouse Health Care Agent Care Teams Mill Representative Relationship Specialty Start Date End Date Saida Rubio PA PCP - General 07/27/17 Shawn Roth MD [address] [place] [place] [address] Consulting Physician Cardiology 12/14/18
--- OUTSIDE RECORDS SUMMARY | 2025-04-14 05:08 | XMS_ITS | Clinical Summary ---
Author Organization [facility] Address [address] [place] [address] Care Team Providers Care Production Counter Name Role Phone Saida Grey Primary Care Pr ovider Source Comments [facility],non-owned Affiliates and Associated Physician Practices is amultiple site organization consisting of ambulatory clinics and hospital sitesin [place], [place], [place] and [place]. This disclosure is being madepursuant to the Care Everywhere program and may not contain all information available regarding this patient. Last updated 18.[facility] Allergies Active Allergy Reactions Criticality Noted Date Comments Contrast-Iodinated Agents For Ct/Other Itching 10/14/2018 Medications * Be aware that medications may not be up to date on this document. Alwaysverify current medications with the patient. lisinopril-hydr ochlorothiazide (PRINZIDE; ZESTORETIC) 10-12.5 MG tablet Take 1 [...] DAILY WITH MEALS NEEDED FOR GOUT FLARE 3 Active levothyroxine (Synthroid) 50 MCG tablet Take 1 (one) tablet by mouth once daily Active metFORMIN ER 24hr (Glucophage XR) 500 MG tablet TAKE 1 TABLET BY MOUTH EVERY DAY AT DINNER 3 Active nitroGLYCERIN (Nitrostat) 0.[address] 1 TABLET UNDER TONGUE EVERY 5 MINS, UP TO 3 DOSES NEEDED FOR CHEST PAIN Active rosuvastatin (Crestor) 40 MG tablet Take 1 (one) tablet by mouth once daily 3 Active tamsulosin (Flomax) 0.4 MG capsule 3 Active venlafaxine XR 24hr (Effexor XR) 150 MG capsule Take 1 (one) capsule by mouth once daily Active amLODIPine (Norvasc) 5 MG tablet Take 0.5 (one-half) tablet by mouth once daily 2 Active allopurinol (Zyloprim) 100 MG tablet Take 1 (one) tablet by mouth once daily 3 Active citalopram (CeleXA) 20 MG tablet Take 1 (one) tablet by mouth once daily Active tobramycin-dexA METHasone (TobraDex) 0.3-0.1 % ophthalmic suspension Instill 1 (one) drop into both eyes 4 times daily 2.5 mL 4 Active ketorolac (Toradol) 10 MG tablet Take 1 (one) tablet by mouth every 6 hours as needed for Pain 10 tablet 4 Active Active Problems Problem Noted Date Diagnosed Date COPD (chronic obstructive pulmonary disease) Overview (01/04/2024): aspestis exposure/ pleural plaque 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 02/28/2023 Coronary artery disease invo lving crow coronary artery of crow heart without angina pectoris 01/13/2020 02/28/2023 Asbestos [...] at Not on file 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 Gender Identity Not on file Sexual Orientation Not on file Occupation Industry Job Start Date Job End Date [employer] (from [id number]) Not on file Not on file 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, 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 Not on file Not on file Not on f ile Last Filed Vital Signs Vital Sign Reading [...] Last Done Comments COLOGUARD (AGES 45-75) - COLON CA SCREENING 1955 COLON MONITORING 1955 COLONOSCOPY [...] 1-dose series) 2014 COVID-19 VACCINE (4 - season) 2024 07/18/2021, 11/04/2020, 10/17/2020 DEPRESSION SCREENING 08/20/2024 MEDICARE AWV CALENDAR YEAR 2024 INFLUENZA VACCINE (#1) 2025 07/03/2019, 2017 SCREENING FOR DIABETES 01/14/2027 , 01/15/2024, 01/04/2024, Additional history exists HEPATITIS B VACCINE Aged Out No longe [...] A/C/Y/W VACCINE Aged Out No longer eligible based on patient's age to complete this topic Procedures Procedure Name Priority Date/Time Associated Diagnosis Comments GLUCOSE - POINT OF CARE Routine 01/15/2024 12:24 PM CDT from Last 3 Months or Most Recently Relevant to Health Maintenance Results * (ABNORMAL) GLUCOSE - POINT OF CARE (01/15/2024 12:24 PM CDT) Pathologist [facility] Glucose WB/POC 149(H) 70 - 115 mg/dL 01/15/2024 12:25 PM CDT [facility] Specimen Type Venous 01/15/2024 12:25 PM CDT [facility] Blood BLOOD SPECIMEN / Unknown 01/15/2024 12:24 PM CDT 01/15/2024 12:25 PM CDT us Hardik Marroquin MD LAB - POINT OF CARE ORDERABLES F inal Result [facility] [address] [place] [address], [facility] [phone] from Last 3 Months or Most Recently Relevant to Health Maintenance Insurance HUMANA MEDICARE ADV HMO & PPO Care Teams Production Counter Relationship Specialty Start Date End Date Saida Grey PA [address] [place] [id number] PCP - General Physician Patient Admitting Clerk 06/13/23
--- OUTSIDE RECORDS SUMMARY | 2025-04-14 05:08 | XMS_ITS | Clinical Summary ---
Author Organization [facility] Address [address] [place] [address] Care Team Providers Care Sales And Management Trainee Name Role Phone Unavailable Primary Care Provider Unavailabl e Social History Tobacco Use Types Packs/Day Years Used Date Smoking Tobacco: Never Assessed Sex and Gender Information Value Date Recorded Sex Assigned at Not on file Legal Sex Male 5:00 PM CDT Gender Identity Not on file Sexual Orientation Not on file Last Filed Vital Signs Vital Sign Reading Time Taken Comments Blood Pressure 150/100 06/05/2013 1:29 PM CDT Pulse - - Temperature - - Respiratory Rate - - Oxygen Saturation - - Inhaled Oxygen Concentration - - Weight 106.6 kg (235 lb) 06/05/2013 1:29 PM CDT Height 182.9 cm (6') 06/05/2013 1:29 PM CDT Body Mass Index 31.87 06/05/2013 1:29 PM CDT Plan of Treatment Health Maintenance Due Date Last Done Comments Colorectal Cancer Screening Colonoscopy (10 Years) 1954 Hepatitis C 1972 DTaP, Tdap and Td Vaccines ( 1 - Tdap) 1973 Pneumococcal Vaccine: 50+ Years (1 of 1 - PCV) 2004 Zoster Vaccines (1 of 2) 2004 COVID-19 Vaccine (3 - 2023-2 5 season) 2024 11/04/2020, 10/17/2020 RSV Immunization or 60+ Years (1 - 1-dose 75+ series) 2029 Meningococcal B Vaccine Aged Out No l onger eligible based on patient's age to complete this topic Meningococcal Vaccine Aged Out No fanta [place] eligible based on patient's age to complete this topic RSV Immunizations Under 20 Months Aged Out No longer eligible b ased on patient's age to complete this topic
--- OUTSIDE RECORDS SUMMARY | 2025-04-14 05:08 | XMS_ITS | Encounter Summary ---
Author Organization [facility] Address [address] [place] [address] Care Team Providers Care Floor Technician Name Role Phone Saida Grey Primary Care Pr ovider Encounter Details Date Type Department Care Team (Late st Contact Info) Description 05/30/2023 Telephone [facility] - Op[facility]mology [address] [place] [address] Hardik Marroquin MD [address] [place] [address] Social History Tobacco Use Types Packs/Day Years Used Date Smoking Tobacco: Never Smokeless Tobacco: Never Alcohol Use Standard Drinks/Week Comments No 0 (1 standard drink = 0.6 oz pur e alcohol) Sex and Gender Information Value Date Recorded Sex Assigned at Not on file 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 Answer Date of Assessment Author No 09/16/2015 10:21 AM Krystal Gomez RN * Is person blind or have serious difficulty seeing? Answer Date of Assessment Author No 09/16/2015 10:21 AM Krystal Gomez RN * Does person have serious difficulty walking/climbing stairs? Answer Date of Assessment Author No 09/16/2015 10:21 AM Krystal Gomez RN * Does person have difficulty dressing/bathing? Answer Date of Assessment Author No 09/16/2015 10:21 AM Krystal Gomez RN * Does person have difficulty doing errands alone? Answer Date of Assessment Author No 09/16/2015 10:21 AM Krystal Gomez RN documented as of this encounter Mental Status * Does person have difficulty concentrating/remembering/making decisions? Answer Entry Date Author No 09/16/2015 10:21 AM Krystal Gomez RN documented in this encounter Miscellaneous Notes * Telephone Encounter - Christa Hanson - 05/30/2023 9:09 AM CDT Patient's called stating the patient is ready to move forward with scheduling for surgery. documented in this encounter Plan of Treatment Not on file documented as of this encounter Visit Diagnoses Not on filedocumented in this encounter Care Teams Floor Technician Relationship Specialty Start Date End Date Saida Grey PA [address] [place] [id number] PCP - General Physician Chairman 06/13/23 documented as of this encounter
--- NOTE | 2025-04-14 05:45 | ED.FALL ---
HPI - Fall General Chief Complaint: Fall Stated Complaint: fell down stairs 3 days ago, neck/collarbone Time Seen by Provider: 04/14/25 05:13 History of Present Illness HPI Narrative: Patient is a 70-year-old male who presents to the emergency department this evening complaining of right-sided neck pain. Patient states that he fell approximately 3 days ago. Denies hitting his head and denies any loss of consciousness. Patient states that he was slightly sore but it this morning he woke up and his right-sided neck pain was worse so he decided to come in for further evaluation. Patient is on clopidogrel. Related Data Home Medications ?Medication ?Instructions ?Recorded ?Confirmed ?Last Taken ?Type citalopram 20 mg tablet 20 mg PO DAILY 10/07/19 03/10/22 Unknown History clopidogrel 75 mg tablet 75 mg PO DAILY 10/07/19 03/10/22 Unknown History levothyroxine 50 mcg tablet 50 mcg PO DAILY 10/07/19 03/10/22 Unknown History lisinopril 10 1 tablet PO BID 10/07/19 03/10/22 Unknown History mg-hydrochlorothiazide 12.5 mg tablet allopurinol 100 mg tablet 100 mg PO DAILY 03/10/22 03/10/22 Unknown History amlodipine 5 mg tablet 5 mg PO DAILY 03/10/22 03/10/22 Unknown History hydroxyzine pamoate 25 mg capsule 25 mg PO HS PRN Sleep 03/10/22 03/10/22 Unknown History indomethacin 50 mg capsule 50 mg PO TID PRN Pain 03/10/22 03/10/22 Unknown History rosuvastatin 40 mg tablet 40 mg PO DAILY 03/10/22 03/10/22 Unknown History venlafaxine 150 mg 150 mg PO DAILY 03/10/22 03/10/22 Unknown History capsule,extended release 24 hr metformin 500 mg tablet 500 mg 09/28/24 Unknown History tamsulosin 0.4 mg capsule 0.4 mg PO 09/28/24 Unknown History mupirocin 2 % topical ointment topical 02/08/25 Unknown History Allergies Allergy/AdvReac Type Severity Reaction Status Date / Time metoclopramide Allergy Mild N/V, Verified 04/14/25 05:27 ITHCING, RASH propoxyphene Allergy Mild N/V, Verified 04/14/25 05:27 ITCHING, RASH vancomycin Allergy Mild N/V, Verified 04/14/25 05:27 ITCHING, RASH codeine Allergy Unknown NAUSEA Verified 04/14/25 05:27 Contrast Media Allergy Mild VOMITING, Uncoded 04/14/25 05:27 RASH Review of Systems Review of Systems: All systems are reviewed and are negative unless stated otherwise in the HPI. [facility] Past Medical History Medical History Coronary artery disease Hypothyroidism, unspecified Essential (primary) hypertension Anxiety Family History Family History Mother Family history of malignant neoplasm Chronic obstructive pulmonary disease Hypertension Sibling Family history of coronary artery disease Hypertension Father Family history of coronary artery disease Hypertension Social History Social History Smoking status: Never smoker Alcohol intake: never Substance use: never Spiritual care concerns: No Exam Narrative: General: Alert, awake, afebrile, in no acute distress. HEENT: PERRL, no rhinorrhea, no post nasal drip, oropharynx clear, no midline tenderness to palpation over the cervical spine. Neck: Trachea midline, no JVD, no lymphadenopathy. Cardiovascular: Regular rate and rhythm, no murmurs, rubs or gallops, no peripheral edema. Respiratory: Clear to auscultation bilaterally, no tachypnea, no wheezing, no rhonchi, no rubs, no respiratory distress. Abdomen: Soft, nontender, nondistended, no rebound, no guarding, no peritoneal signs. Musculoskeletal: No joint swelling or deformity, normal muscle tone. Skin: No rashes or petechia, no signs of infection. Psychiatric: Alert and oriented, normal behavior and judgment for situation. Neurological: Alert and oriented to person, place, and time. Follows all commands. No focal deficits, speech is clear and fluent. Course Vital Signs Vital signs: Vital Signs Pulse Rate 93 04/14/25 05:13 Respiratory Rate 23 H 04/14/25 05:13 Blood Pressure 142/81 H 04/14/25 05:13 Pulse Oximetry 100 04/14/25 05:13 Temperature 98 F 04/14/25 05:17 Pulse Rate 86 04/14/25 06:45 Respiratory Rate 15 04/14/25 06:45 Blood Pressure 164/72 H 04/14/25 05:17 Pulse Oximetry 100 04/14/25 06:45 Oxygen Delivery Nasal Cannula 04/14/25 05:34 Oxygen Flow Rate 2 04/14/25 05:34 MDM - Fall MDM Narrative Medical decision making narrative: The patient was evaluated by myself in the emergency department. History is obtained from patient who is an independent historian and physical exam was performed. External medical records were reviewed at this time. Imaging studies obtained included CT brain and C-spine without IV contrast which was independently interpreted by me revealing 7.6 mm right frontal subdural hematoma otherwise unremarkable, which is pending final radiology interpretation. Patient was informed of these findings at bedside. Patient states that he did not take his blood pressure medications this morning. Current blood pressure is 164/72. At this time patient was started on a Cardene drip for blood pressure management. Differential diagnosis considerations include cervical sprain, fracture. Comorbidities impacting this visit include none. I have evaluated and discussed social determinants of health with the patient that could potentially impact subsequent diagnosis and treatment plans. On repeat assessment of the patient, reevaluation revealed that the patient is doing well and is in no acute distress. Patient symptoms have improved since he arrived to our emergency department. Repeat vital signs were all reviewed and noted to be stable. Differential diagnosis and treatment plan were discussed with the patient at bedside. Patient agrees with discussion and after shared medical decision making agrees with transfer. All questions were answered to the patient's satisfaction. Case was discussed with the [facility] transfer line at 0655. Did receive a call back after case was discussed with the on-call neurosurgeon who recommended ED to ED transfer. Did speak with the on-call ED physician Dr. Tomlinson at 0705 who accepted ED to ED transfer. Critical care time of 65 minutes, exclusive of separately performed procedures, necessary for treating or preventing eminent or life-threatening deterioration of patient's condition of acute traumatic subdural hematoma requiring transfer to a facility for higher level of care, Cardene drip, focused on patient care provided personally by me and time spent during initial evaluation, physical examination, ordering and performing treatments and interventions, ordering and reviewing laboratory studies, ordering and reviewing radiographic studies, re-evaluation of the patient's condition, evaluation of the patient's response to treatment, and discussion of patient case with multiple consultants. Critical Care Time Critical Care Time Critical Care Time: Yes Total Critical Care Time: 65 (Please refer to [facility] for attestation.) Discharge Plan Discharge Clinical Impression: Neck pain, Head injury, Fall, Acute subdural hematoma Patient Disposition: Acute Care Hospital Condition: Improved Additional Instructions: Patient Language: Chinese Prescriptions: No Action metformin 500 mg tablet 500 mg tamsulosin 0.4 mg capsule 0.4 mg PO mupirocin 2 % ointment TOPICAL cephalexin 500 mg tablet 500 mg PO Q8H 7 Days Qty: 21 0RF clopidogrel 75 mg Tablet 75 mg PO DAILY citalopram 20 mg Tablet 20 mg PO DAILY levothyroxine 50 mcg Tablet 50 mcg PO DAILY lisinopril-hydrochlorothiazide 10-12.5 mg Tablet 1 tablet PO BID venlafaxine 150 mg capsule,extended release 24hr 150 mg PO DAILY amlodipine 5 mg Tablet 5 mg PO DAILY allopurinol 100 mg Tablet 100 mg PO DAILY indomethacin 50 mg Capsule 50 mg PO TID PRN (Reason: Pain) Rx Instructions: administer with food or milk hydroxyzine pamoate 25 mg capsule 25 mg PO HS PRN (Reason: Sleep) Rx Instructions: pt takes 1-2 per night. increases dose to 2 if more restless rosuvastatin 40 mg Tablet 40 mg PO DAILY carvedilol 25 mg Tablet 12.5 mg PO BID Qty: 14 0RF Rx Instructions: Follow directions on discharge instructions for dose adjustment. Time of Disposition: 07:06
--- NOTE | 2025-04-14 07:21 | PC.NURSE ---
This RN called [facility] ED and spoke to Fara LAW and gave report.
== END 2025-04-14 08:00 | disposition short-term general hospital (02) ==
PROVIDERS: Emergency Provider Emergency Medicine; PCP Physician Assistant
DX: M54.2 Cervicalgia (principal); S06.5X0A Traumatic subdural hemorrhage without loss of consciousness, initial encounter; W19.XXXA Unspecified fall, initial encounter; I25.10 Atherosclerotic heart disease of native coronary artery without angina pectoris; E03.9 Hypothyroidism, unspecified; I10 Essential (primary) hypertension; F41.9 Anxiety disorder, unspecified
CPT/HCPCS: 70450; 72125; 96365; 99284; J2404

== ENCOUNTER 2025-04-28 09:46 | Outpatient (CLI) | payer MEDICARE, SELFPAY ==
--- NOTE | ~2025-04-28 | XR_ITS ---
EXAMINATION: XR shoulder RT min 2V, 04/28/2025 9:53 CDT HISTORY: pain in left and right shoulder x 3 weeks after fall COMPARISON: No comparisons available. Findings: No acute fracture or malalignment. No significant degenerative changes. Soft tissues unremarkable. Impression: No acute fracture or malalignment. Reviewed, dictated and finalized at location A. Impression: No acute fracture or malalignment.
--- NOTE | ~2025-04-28 | XR_ITS ---
EXAMINATION: XR shoulder LT min 2V, 04/28/2025 9:53 CDT HISTORY: pain in left and right shoulder COMPARISON: No comparisons available. Findings: No acute fracture or malalignment. No significant degenerative changes. Soft tissues unremarkable. Impression: No acute fracture or malalignment. Reviewed, dictated and finalized at location A. Impression: No acute fracture or malalignment.
== END 2025-04-28 09:47 | disposition home or self-care (01) ==
LOC: GOSHIMG 09:47
PROVIDERS: PCP Physician Assistant; Visit Provider Physician Assistant
DX: M25.511 Pain in right shoulder (principal); M25.512 Pain in left shoulder; S06.5XAA Traumatic subdural hemorrhage with loss of consciousness status unknown, initial encounter; X58.XXXA Exposure to other specified factors, initial encounter; R90.82 White matter disease, unspecified
CPT/HCPCS: 73030

== ENCOUNTER 2025-05-04 10:58 | Outpatient (CLI) | payer MEDICARE, SELFPAY ==
--- NOTE | ~2025-05-04 | MR_ITS ---
EXAMINATION: MR brain/brain stem wo con DATE: 05/04/2025 11:38 INDICATION: Subdural hematoma. TECHNIQUE: Magnetic resonance imaging (MRI) of the brain and brainstem was performed without intravenous contrast. COMPARISON: Head CT 04/14/2025 FINDINGS: There are scattered areas of nonspecific increased T2-weighted signal intensity in the cerebral white matter and sanjay. There is no intracranial hemorrhage, acute infarction, or abnormal intracranial mass lesion. The ventricles are normal in size. There are likely changes of ocular lens replac ement surgeries. There is mild mucosal thickening in the paranasal sinuses. There are small bilateral mastoid effusions. IMPRESSION: 1. Moderate nonspecific cerebral white matter disease and pontine disease, which likely represents chronic small vessel ischemic disease. Reviewed, dictated and finalized at location E. IMPRESSION: 1. Moderate nonspecific cerebral white matter disease and pontine disease, whic h likely represents chronic small vessel ischemic disease.
== END 2025-05-04 10:59 | disposition home or self-care (01) ==
LOC: GOSHIMG 10:59
PROVIDERS: PCP Physician Assistant; Visit Provider Physician Assistant
DX: S06.5XAA Traumatic subdural hemorrhage with loss of consciousness status unknown, initial encounter (principal); M25.511 Pain in right shoulder; M25.512 Pain in left shoulder; X58.XXXA Exposure to other specified factors, initial encounter; R90.82 White matter disease, unspecified
CPT/HCPCS: 70551

== ENCOUNTER 2025-07-01 08:46 | Outpatient (CLI) | payer MEDICARE, SELFPAY ==
--- NOTE | ~2025-07-01 | CT_ITS ---
EXAMINATION: CT abdomen pelvis wo con DATE: 07/01/2025 09:05 INDICATION: Right flank pain TECHNIQUE: Computed tomography (CT) of the abdomen and pelvis was performed with 100 mL Omnipaque-350 intravenous contrast. Automated exposure control and iterative reconstruction technique were employed. The dose-length product was 1091.54 mGy-cm. COMPARISON: CT dated 10/29/2024 FINDINGS: Unchanged mild discoid atelectasis/scarring at the lingula and anterobasilar left lower lobe. Chronic mild calcific pleural plaques along the bilateral lung bases. Heart size is normal. Atherosclerotic coronary artery calcification. No pericardial effusion. Sliding-type hiatal hernia containing a small portion of the stomach along with moderate amount of surrounding herniated fat and 3.0 x 2.2 x 2.3 cm collection of fluid within the hernia. The liver, gallbladder, spleen, pancreas, right kidney and bilateral adrenal glands are normal. 2.5 cm cyst at the upper pole the left kidney. No urolithiasis or hydronephrosis. Bowels including the appendix are normal. Decompressed bladder is unremarkable. Prostatomegaly measuring 5.1 x 4.2 cm. No free intraperitoneal gas or fluid. No pathologically enlarged abdominal or pelvic lymphadenopathy. Moderate lumbar spondylosis. IMPRESSION: 1. No urolithiasis or acute intra-abdominal/pelvic process. 2. Small sliding-type hiatal hernia. 3. Prostatomegaly. Reviewed, dictated and finalized at location A. R CONTR[employer]ER
== END 2025-07-01 08:47 | disposition home or self-care (01) ==
LOC: MICIMG 08:47
PROVIDERS: PCP Physician Assistant
DX: K44.9 Diaphragmatic hernia without obstruction or gangrene (principal); N40.0 Benign prostatic hyperplasia without lower urinary tract symptoms
CPT/HCPCS: 74176